=== PATIENT | male | born 1955 | race Hispanic/Latino ===

== ENCOUNTER 2016-10-20 12:09 | Inpatient (IN) | payer OTHER ==
[2016-10-20 13:25] LABS: Basophils % (Auto) 0.9 % (0.0-1.8); Eosinophils % (Auto) 1.1 % (0.0-4.3); Mean Corpuscular HGB Conc 29 % (32-34); Platelet Count 473 K/mm3 (140-440); Red Blood Count 4.88 M/mm3 (3.65-5.03); Red Cell Distribution Width 17.6 % (13.2-15.2); White Blood Count 14.1 K/mm3 (4.5-11.0)
[2016-10-20 13:39] LABS: Albumin/Globulin Ratio 1.1 %; BUN/Creatinine Ratio 18.66; Bilirubin,Total 0.4 mg/dL (0.1-1.2); Calcium 9.4 mg/dL (8.4-10.2); Potassium 4.2 mmol/L (3.6-5.0); Total Protein 7.6 g/dL (6.3-8.2)
[2016-10-20 13:42] LABS: Mean Corpuscular Hemoglobin 19 pg (28-32); Mean Corpuscular Volume 66 fl (84-94)
[2016-10-20 13:45] LABS: Hematocrit 31.8 % (35.5-45.6); Hemoglobin 9.3 gm/dl (11.8-15.2)
[2016-10-20 17:17] LABS: Bilirubin,Urine NEG (Negative); Blood,Urine NEG (Negative); Ketones,Urine TR mg/dL (Negative); Leukocyte Esterase,Urine TR (Negative); Mucus,Urine 1+ /HPF; Nitrite,Urine NEG (Negative); Protein,Urine <15 mg/dL mg/dL (Negative); Urobilinogen,Urine < 2.0 mg/dL (<2.0)
[2016-10-20] MEDS ORDERED: NACL ONE (18:30)
[2016-10-20] MEDS ORDERED: NACL 0.9% 1000 ML 1,000 ML IV ONE (18:31)
[2016-10-20 19:29] LABS: Total Iron Binding Capacity 403.2 mcg/dL (250-450)
--- NOTE | 2016-10-20 20:50 | Emergency Department Report ---
ED Abdominal Pain HPI - General Chief Complaint: Abdominal Pain Stated Complaint: ABDOMINAL PAIN Time Seen by Provider: 10/20/16 18:14 Source: patient, family Mode of arrival: Ambulatory Limitations: No Limitations - History of Present Illness Initial Comments: 61 yo male with a past hx of treated basal cell carcinoma and melanoma of the skin and surgical resection of both, and hypertension presents to the hospital complains of abdominal pain for greater than 1 month. Patient complains of intermittent sharp lower abdominal pain that is moderate in intensity. Pain is after eating something heavy like meat. Patient denies nausea, vomiting, diarrhea, melena, or fever. Patient had blood in his stool 4 weeks ago but has not noticed any sense. Patient does not have a primary care doctor. Denies a known history of anemia or iron deficiency. Patient has not been here before but was seen previously in the [facility]. He has lab work in the computer from September 2015 showing microcytic anemia with a hemoglobin of 10.8. Severity scale (0 -10): 8 - Related Data Allergies Allergy/AdvReac Type Severity Reaction Status Date / Time No Known Allergies Allergy Verified 10/20/16 18:36 ED Review of Systems ROS: Stated complaint: ABDOMINAL PAIN Other details as noted in HPI Comment: All other systems reviewed and negative Other: Constitutional: No fevers chills Eyes: No eye pain visual changes ENT: No ear pain or throat pain Neck: Denies pain Respiratory: Denies cough wheezing shortness of breath Cardiovascular: Denies chest pain, palpitations, syncope GI: as per hpi : Denies dysuria Musculoskeletal: Denies back pain Skin: Denies rash, lesions, erythema Neurologic: Denies headache, numbness, weakness Psychiatric: Denies suicidal ideation, hallucinations ED Past Medical Hx - Past Medical History Previous Medical History?: Yes Hx Hypertension: Yes Hx of Cancer: Yes (basal cell carcinoma, melenoma) - Surgical History Past Surgical History?: Yes Additional Surgical History: Cancer (ear and face) - Social History Smoking Status: Never Smoker Substance Use Type: None ED Physical Exam - General Limitations: No Limitations - Other Other exam information: General: No limitations, patient is alert in no acute distress Head exam: Atraumatic, normocephalic Eyes exam: Normal appearance, nonicteric sclera ENT: Moist mucous membrane, normal oropharynx Neck exam: Normal inspection, full range of motion, no meningismus nontender Respiratory exam: Clear to auscultation bilateral, no wheezes, rales, crackles Cardiovascular: Normal rate and rhythm, normal heart sounds Abdomen: Soft, nondistended, and nontender. Increased bowel sounds. Patient has guarding to the right upper and right lower quadrant which he says is due to being ticklish however this is only on the right side and not the left Extremity: Full range of motion normal inspection no deformity Back: Normal Inspection, full range of motion, no tenderness Neurologic: Alert, oriented x3, cranial nerves intact, no motor or sensory deficit Psychiatric: normal affect, normal mood Skin: Warm, dry, intact ED Course Vital Signs 10/20/16 10/20/16 10/20/16 12:44 18:08 22:00 Temperature 98.0 F 98.3 F Pulse Rate 57 L 66 69 Respiratory 22 16 Rate Blood Pressure 158/66 Blood Pressure 196/66 153/58 [Right] O2 Sat by Pulse 98 100 98 Oximetry - Reevaluation(s) Reevaluation #1: 10/20/16 21:01 PT treated with 1 L normal saline given mild dehydration and increased creatinine. Iron studies also reveals iron deficiency anemia Reevaluation #2: 10/20/16 22:22 SBP currently in the 130's without IV meds - Consultations Consultation #1: 10/20/16 21:54 case d/w DR. Caballero vascular. pt will likely need an endovascular procedure for this chronic dissection. Recommends cardiology consult for bp controll sbp goal 130, hr goal 70's. He will write a note Consultation #2: 10/20/16 22:06 case d/w DR. Jorgensen surgery, he will consult Consultation #3: 10/20/16 22:06 Case d/w Dr. Bolaños cardiology: they will consult ED Medical Decision Making - Lab Data Result diagrams: 10/20/16 13:06 10/20/16 13:06 Lab Results 10/20/16 10/20/16 10/20/16 Range/Units 13:06 13:06 13:06 WBC 14.1 H (4.5-11.0) K/mm3 RBC 4.88 (3.65-5.03) M/mm3 Hgb 9.3 L (11.8-15.2) gm/dl Hct 31.8 L (35.5-45.6) % MCV 66 L (84-94) fl MCH 19 L (28-32) pg MCHC 29 L (32-34) % RDW 17.6 H (13.2-15.2) % Plt Count 473 H (140-440) K/mm3 Lymph % (Auto) 16.6 (13.4-35.0) % Reynolds % (Auto) 9.8 H (0.0-7.3) % Eos % (Auto) 1.1 (0.0-4.3) % Baso % (Auto) 0.9 (0.0-1.8) % Lymph # 2.3 (1.2-5.4) K/mm3 Reynolds # 1.4 H (0.0-0.8) K/mm3 Eos # 0.2 (0.0-0.4) K/mm3 Baso # 0.1 (0.0-0.1) K/mm3 Seg Neutrophils % 71.6 H (40.0-70.0) % Seg Neutrophils # 10.1 H (1.8-7.7) K/mm3 Sodium 135 L (137-145) mmol/L Potassium 4.2 (3.6-5.0) mmol/L Chloride 98.0 (98-107) mmol/L Carbon Dioxide 24 (22-30) mmol/L Anion Gap 17 mmol/L BUN 28 H (9-20) mg/dL Creatinine 1.5 (0.8-1.5) mg/dL Estimated GFR 48 ml/min BUN/Creatinine Ratio 18.66 % Glucose 117 H (75-100) mg/dL Calcium 9.4 (8.4-10.2) mg/dL Iron 12 L (49-181) ug/dL TIBC 403.20 (250-450) mcg/dL % Saturation 2.98 % Transferrin 288 (180-329) mg/dl Total Bilirubin 0.4 (0.1-1.2) mg/dL AST 9 (5-40) units/L ALT 7 (7-56) units/L Alkaline Phosphatase 76 (35-129) units/L Total Protein 7.6 (6.3-8.2) g/dL Albumin 4.0 (3.9-5) g/dL Albumin/Globulin Ratio 1.1 % Lipase 19 (13-60) units/L Urine Color (Yellow) Urine Turbidity (Clear) Urine pH (5.0-7.0) Ur Specific [place] (1.003-1.030) Urine Protein (Negative) mg/dL Urine Glucose (UA) (Negative) mg/dL Urine Ketones (Negative) mg/dL Urine Blood (Negative) Urine Nitrite (Negative) Urine Bilirubin (Negative) Urine Urobilinogen (<2.0) mg/dL Ur Leukocyte Esterase (Negative) Urine WBC (Auto) (0.0-6.0) /HPF Urine RBC (Auto) (0.0-6.0) /HPF U Epithel Cells (Auto) (0-13.0) /HPF Urine Mucus /HPF 10/20/16 Range/Units 16:05 WBC (4.5-11.0) K/mm3 RBC (3.65-5.03) M/mm3 Hgb (11.8-15.2) gm/dl Hct (35.5-45.6) % MCV (84-94) fl MCH (28-32) pg MCHC (32-34) % RDW (13.2-15.2) % Plt Count (140-440) K/mm3 Lymph % (Auto) (13.4-35.0) % Reynolds % (Auto) (0.0-7.3) % Eos % (Auto) (0.0-4.3) % Baso % (Auto) (0.0-1.8) % Lymph # (1.2-5.4) K/mm3 Reynolds # (0.0-0.8) K/mm3 Eos # (0.0-0.4) K/mm3 Baso # (0.0-0.1) K/mm3 Seg Neutrophils % (40.0-70.0) % Seg Neutrophils # (1.8-7.7) K/mm3 Sodium (137-145) mmol/L Potassium (3.6-5.0) mmol/L Chloride (98-107) mmol/L Carbon Dioxide (22-30) mmol/L Anion Gap mmol/L BUN (9-20) mg/dL Creatinine (0.8-1.5) mg/dL Estimated GFR ml/min BUN/Creatinine Ratio % Glucose (75-100) mg/dL Calcium (8.4-10.2) mg/dL Iron (49-181) ug/dL TIBC (250-450) mcg/dL % Saturation % Transferrin (180-329) mg/dl Total Bilirubin (0.1-1.2) mg/dL AST (5-40) units/L ALT (7-56) units/L Alkaline Phosphatase (35-129) units/L Total Protein (6.3-8.2) g/dL Albumin (3.9-5) g/dL Albumin/Globulin Ratio % Lipase (13-60) units/L Urine Color Yellow (Yellow) Urine Turbidity Clear (Clear) Urine pH 5.0 (5.0-7.0) Ur Specific [place] 1.021 (1.003-1.030) Urine Protein <15 mg/dl (Negative) mg/dL Urine Glucose (UA) Neg (Negative) mg/dL Urine Ketones Tr (Negative) mg/dL Urine Blood Neg (Negative) Urine Nitrite Neg (Negative) Urine Bilirubin Neg (Negative) Urine Urobilinogen < 2.0 (<2.0) mg/dL Ur Leukocyte Esterase Tr (Negative) Urine WBC (Auto) 3.0 (0.0-6.0) /HPF Urine RBC (Auto) 3.0 (0.0-6.0) /HPF U Epithel Cells (Auto) 1.0 (0-13.0) /HPF Urine Mucus 1+ /HPF - Radiology Data Radiology results: report reviewed CT abdomen and pelvis IV contrast: Large malignant cavitary mass arising from the cecum and the 8 x 10 x 12 cm range. Recommend oral contrast. Mild small bowel ileus is suspected. Scattered mesenteric mass implantation. Metastatic mesenteric lymphadenopathy. Indeterminate pancreatic head mass. Extensive arterial vasculopathy. Infrarenal abdominal aortic aneurysm with chronic exertion with a left posterior left chronic pseudoaneurysm measuring in the 2 x 3 cm range. - Medical Decision Making IV labetalol drip order to maintain blood pressure. Vascular, surgery, and cardiology consults. Patient and family informed of possibility of cancer and diagnosis of dissection. Patient will be admitted for further management and workup. Ct abd/pelvis with Oral contrast ordered and pending at disposition - Differential Diagnosis intestinal angina, cancer, dyspepsia, diverticulitis, hepatitis, biliary co Critical Care Time: No Critical care attestation.: If time is entered above; I have spent that time in minutes in the direct care of this critically ill patient, excluding procedure time. ED Disposition Clinical Impression: Intestinal mass, Aortic dissection, abdominal, Pseudoaneurysm of aorta, Iron deficiency anemia Disposition: OP ADMITTED IP TO THIS HOSP Is pt being admited?: Yes Condition: Stable Time of Disposition: 22:25 (Dr Peres/hosp)
--- NOTE | 2016-10-20 21:29 | Cat Scan Report ---
FINAL REPORT PROCEDURE: CT ABDOMEN PELVIS W CON TECHNIQUE: Computerized axial tomography of the abdomen and pelvis was performed after the IV injection of iodinated nonionic contrast. HISTORY: abd pain after eating x 1 month COMPARISON: No prior studies are available for comparison. FINDINGS: Visualized lower thorax: No significant abnormality. Liver: Moderately enlarged liver with diffuse fatty infiltration. Spleen: Moderately enlarged spleen. Gallbladder and biliary system: Normal. Pancreas: Diffuse pancreatic atrophy with apparent round heterogeneous low to medium attenuated lesion in the pancreatic head measuring 1.4 x 1.6 centimeters coronal 59 with small 1 millimeter calcifications. This is indeterminate. Pancreatic malignancy or metastatic implant is the diagnosis of exclusion and followup and further workup is advised. No prior CT scan on file for correlation. Adrenals: 1.4 x 1.3 centimeter nonspecific left adrenal gland nodule near the crux and tiny incidental 1 x 2 millimeter lipoma at the base Kidneys: Low attenuated cystic changes of the kidneys with the largest suspected cyst in the right mid kidney measuring 7.0 x 5.0 centimeters. GI tract: No oral contrast. There is an apparent large cavitary mass in the right lower quadrant measuring 8 x 9 x 12 centimeters right lower quadrant appears to be related to cecum with surrounding mesenteric stranding. The normal colonic anatomy in that location is not discernible. Cohesive loops of diseased small bowel mimicking mass in the right lower quadrant is not favored. A normal caliber appendix appears to emanate from this masslike area in corroborating cecal locus of mass with appendix seen image 105. Followup oral contrast is advised. There appears to be scattered low to medium attenuated collections or mass deposits in the lateral collar gutters below the bladder mesentery right upper quadrant suggesting mesenteric implantation is. Enlarged lymph nodes in the mesentery 2 centimeter range consistent with metastatic spread. Followup and further workup is advised. Suggest followup oral contrast examination to further evaluate. Sigmoid diverticulosis. Scattered mildly prominent small bowel loops left upper quadrant in the 2.5 centimeter range may reflect slight ileus Lymph nodes and mesentery: Mildly prominent lymph nodes liza hepatis pre celiac area. Lobular low attenuated mass or collection suspected below the bladder measuring 3.4 x 4.4 centimeters. 1.3 x 1.2 centimeter low to medium attenuated collections lateral mid pelvic regions. Small mass or collection left inner pelvic area near the upper bladder on the left 1.7 x 1.3 centimeters. Suspect small focal mass or collection near anterior to the right renal vein measures 1.9 x 1.3 centimeters right upper quadrant coronal 73 right upper quad. Other masses or collections may be present and oral contrast examination may be helpful to further identify these areas of suspected mesenteric implant deposits. Vasculature: Atherosclerosis of the aorta and branch vessels with mild narrowing of the celiac axis. Moderate narrowing of the SMA axis. Severe narrowing of the proximal left renal artery. Mild narrowing of the proximal right renal artery. Infrarenal abdominal aortic aneurysm measures 3.8 x 3.4 centimeters with evidence of a focal dissection with apparent pseudoaneurysm formation left posterior lateral measuring 2 x 3 centimeters. Moderate stenosis of the common iliac arteries bilaterally Bladder: Normal. Reproductive organs: heterogeneous prostate gland 4.1 x 5.7 centimeters. Peritoneum: Trace fluid in the lateral collar gutters and pelvis Musculoskeletal structures: 1.2 x 0.8 centimeter lytic area with central sclerotic focus in the right iliac bone. Other tiny areas of patchy sclerotic foci in the iliac bones. Moderate diffuse degenerative changes of the lumbar spine. Defer to nuclear medicine bone scan evaluation to exclude underlying bony metastatic disease. Followup advised Other: None. IMPRESSION: Large malignant cavitary mass arising from the cecum in the 8 x 9 x 12 centimeter range. Recommend abundant oral contrast including proper delayed to reach the mid large bowel with additional IV examination for further clarification. No bowel obstruction but mild small bowel ileus suspected Scattered mesenteric mass implantation Metastatic mesenteric lymphadenopathy Indeterminate pancreatic head mass. Malignancy primary or metastatic disease is the diagnosis of exclusion Extensive arterial vasculopathy Infrarenal abdominal aortic aneurysm with chronic dissection with a left posterior lateral chronic pseudoaneurysm measuring in the 2 x 3 centimeter range. Defer to CTA study. Findings discussed with Dr. Mcguire 9:08 p.m. 10/20/2016
[2016-10-20] MEDS ORDERED: NORMODYNE 200 MG in D5W 160 ML IV ONE (21:51)
--- NOTE | 2016-10-20 22:01 | Event Note ---
Date: 10/20/16 61 year old male with multiple medical problems including a metastatic cecal cancer and an infrarenal aortic dissection with aneurysmal dilatation. Recommend blood pressure control to keep SBP less than 130, HR less than 70. Recommend cardiology consult. Will see patient in AM. No signs of impending rupture on CT scan. Will discuss possible endovascular repair with patient tomorrow.
[2016-10-20] MEDS ORDERED: ZOFRAN IV PRN (23:07)
[2016-10-20] MEDS ORDERED: MORPHINE IV PRN (23:07)
[2016-10-20] MEDS ORDERED: TYLENOL PO PRN (23:07)
--- NOTE | 2016-10-20 23:14 | History and Physical Report ---
History of Present Illness Date of examination: 10/20/16 History of present illness: 61-year-old man with a history of basal cell cancer, melanoma, hypertension comes emergency room with complaining of right lower quadrant pain since [place]. He describes pain as a pressure-like sensation, intermittent in nature lasting for 2-3 hours, no radiation, intensity 7/10, worse after eating, better with pain medication given in the emergency room. Also complaining of blood per rectum 3 weeks ago. He is lost 30 pounds unintentionally over the last 1 year. Patient denies chest pain, palpitation, shortness of breath, cough, dysuria, frequency, focal weakness, dysarthria, fever chills, polydipsia polyuria, hot or cold intolerance, easy bruisability, or rash or bleeding from mucosal membrane, rhinorrhea, epistaxis, earache, tinnitus, blurry vision, eye discharge , anxiety, depression. Other review of systems negative PAST SURGICAL HISTORY: Excision of melanoma and basal cell cancer SOCIAL HISTORY: Denies alcohol, tobacco, drugs FAMILY HISTORY: Hypertension Medications and Allergies Allergies Allergy/AdvReac Type Severity Reaction Status Date / Time No Known Allergies Allergy Verified 10/20/16 18:36 Home Medications Medication Instructions Recorded Confirmed Last Taken Type Benazepril/Hydrochlorothiazide 1 tab PO DAILY 10/20/16 10/20/16 10/20/16 History [Benazepril-Hctz 20-25 mg] Lisinopril [Zestril] 20 mg PO QDAY 10/20/16 10/20/16 10/20/16 History Active Meds: Active Medications Acetaminophen (Tylenol) 650 mg PO Q6H PRN PRN Reason: Pain Labetalol HCl 200 mg/ Dextrose 200 mls @ 120 mls/hr IV ONCE.ED ONE; 2 MG/MIN PRN Reason: Protocol Stop: 10/20/16 23:30 Last Admin: 10/20/16 22:42 Dose: 2 mg/min, 120 mls/hr Sodium Chloride (Nacl 0.45% 1000 Ml) 1,000 mls @ 50 mls/hr IV DIRECT DENAE Morphine Sulfate (Morphine) 2 mg IV Q4H PRN PRN Reason: Pain, Moderate (4-6) Ondansetron HCl (Zofran) 4 mg IV Q4H PRN PRN Reason: N/V unrelieved by Reglan Exam - Physical Exam Narrative exam: Gen. appearance: Patient lying in bed, no apparent distress HEENT: Normocephalic, atraumatic, pupils equally round and reactive to light, extraocular movement intact, and no sclericterus,. No JVD or thyromegaly or nodule,neck supple, no carotid bruit ,mucous membranes moist, no exudate or erythema Heart: S1, S2, regular rate and rhythm Lungs: Clear to auscultation bilaterally, breathing comfortable Abdomen: Positive bowel sounds, tender right lower quadrant, nondistended, no organomegaly Extremity: No edema, cyanosis, clubbing Skin: No rash, nodules, warm, dry Neuro: Oriented 3, cranial nerves II-12 intact, speech is fluent, motor and sensory intact - Constitutional Vitals: Temp Pulse Resp BP Pulse Ox 98.3 F 57 L 14 113/54 98 10/20/16 18:08 10/20/16 22:50 10/20/16 22:50 10/20/16 22:50 10/20/16 22:50 Results - Labs CBC & Chem 7: 10/24/16 05:11 10/24/16 05:11 Labs: Abnormal lab results 10/20/16 10/20/16 10/20/16 Range/Units 13:06 13:06 13:06 WBC 14.1 H (4.5-11.0) K/mm3 Hgb 9.3 L (11.8-15.2) gm/dl Hct 31.8 L (35.5-45.6) % MCV 66 L (84-94) fl MCH 19 L (28-32) pg MCHC 29 L (32-34) % RDW 17.6 H (13.2-15.2) % Plt Count 473 H (140-440) K/mm3 [place] % (Auto) 9.8 H (0.0-7.3) % [place] # 1.4 H (0.0-0.8) K/mm3 Seg Neutrophils % 71.6 H (40.0-70.0) % Seg Neutrophils # 10.1 H (1.8-7.7) K/mm3 Sodium 135 L (137-145) mmol/L BUN 28 H (9-20) mg/dL Glucose 117 H (75-100) mg/dL Iron 12 L (49-181) ug/dL - Imaging and Cardiology CT scan - abdomen: report reviewed CT scan - pelvis: report reviewed Assessment and Plan Metastatic colon cancer Aortic Dissection Anemia microcytic Hypertension History of basal cell cancer and melanoma Admits medicine Consults surgery, oncology Continue labetalol drip, vascular consult to see the patient Consult critical care, cardiology, start iv morphine Check iron studies, DVT prophylaxis initiate WITH SCD Prognosis guarded
--- NOTE | 2016-10-21 01:31 | Cat Scan Report ---
FINAL REPORT EXAM: CT ABDOMEN PELVIS WO CON HISTORY: cecal mass, possible metastatic cancer COMPARISON: CT abdomen pelvis October 20, 2016. TECHNIQUE: Contiguous axial images were obtained. Additional sagittal and coronal reformatted images were obtained. Enteric contrast administered. There is retained IV contrast from earlier CT of the abdomen and pelvis. FINDINGS: Prominent wall thickening of the cecum and proximal ascending colon. This is concerning for neoplastic process rather than focal inflammation. Wall thickness measures up to 2 centimeters. No extravasation of contrast or free air. No bowel obstruction. Cecal mass measures approximately 11 x 7 by 8 centimeters and has a cavitary appearance. There are small lymph nodes at the periphery of the thecal mass. 1 of the largest lymph nodes at its periphery measures 1.7 x 1.3 centimeters in axial dimension (series 201, image 68). Mild linear atelectasis at the lung bases. No calcified gallstones. Liver, spleen, pancreas are grossly unremarkable. Mild thickening of the adrenal glands. Bilateral renal cysts. Re-demonstration of infrarenal abdominal aortic aneurysm measuring 3.7 x 3.4 centimeters in axial dimension. Moderate to severe calcified plaque along the aorta. Urinary bladder is grossly unremarkable. Mild enlargement of prostate gland measuring 4.6 x 5.6 centimeters in axial dimension. Small amount of reactive fluid in the pelvis. Bony pelvis and lumbar spine are grossly intact. Small lucent lesion at the mid aspect of L4 level measuring 5 millimeters. This is indeterminate this could reflect a tiny bone cyst bony pelvis is grossly intact. IMPRESSION: Re-demonstration of large cavitary cecal mass concerning for neoplasm no free air or extravasation of contrast to suggest perforation. There are few small lymph nodes at its periphery which may be metastatic. No bowel obstruction. Stable infrarenal abdominal aortic aneurysm measuring 3.7 centimeters in diameter. Moderate severe calcified plaque along the aorta. Pancreatic head mass described on earlier CT is not well visualized on this followup exam.
[2016-10-21] MEDS: NACL 0.45% 1000 ML 1,000 ML IV SCH ×2 (02:30→22:00)
[2016-10-21 04:56] LABS: Eosinophils % (Auto) 0.9 % (0.0-4.3); Hemoglobin 7.5 gm/dl (11.8-15.2); Mean Corpuscular HGB Conc 30 % (32-34); Platelet Count 311 K/mm3 (140-440); Red Blood Count 3.79 M/mm3 (3.65-5.03); Red Cell Distribution Width 17.2 % (13.2-15.2); White Blood Count 7.8 K/mm3 (4.5-11.0)
[2016-10-21 05:09] LABS: Anion Gap 15 mmol/L; Blood Urea Nitrogen 23 mg/dL (9-20); Calcium 8.3 mg/dL (8.4-10.2); Carbon Dioxide 24 mmol/L (22-30); Chloride 103.5 mmol/L (98-107); Glucose 128 mg/dL (75-100); Potassium 3.8 mmol/L (3.6-5.0); Sodium 139 mmol/L (137-145)
[2016-10-21 06:15] LABS: Mean Corpuscular Hemoglobin 20 pg (28-32); Mean Corpuscular Volume 65 fl (84-94)
[2016-10-21 06:16] LABS: Hematocrit 26.6 % (35.5-45.6)
[2016-10-21] MEDS ORDERED: NACL 0.9% 500 ML 500 ML IV ONE (08:57)
--- NOTE | 2016-10-21 09:03 | Hem/Onc Consultation ---
History of Present Illness - Reason for Consult Consult date: 10/21/16 - History of Present Illness Patient is a who was admitted to the hospital with right lower quadrant pain. On his CT scan he was found to have a large right lower quadrant mass about 8 x 9 x 12 cm. There was also evidence of lymphadenopathy possible mesenteric lesions on his CAT scan. He also was found to have a mass in the head of the pancreas questionable. Patient was found to have aneurysm and was admitted to the hospital for workup. Vascular and surgery evaluation is pending at this time. Because of the colon mass and pancreatic mass oncology consult was called. Patient has history of weight loss in the last year and a half. He says he's lost 40 pounds but he thinks the diabetic that he was placed on is making him lose weight. He has noticed some blood in his stool. He also noticed abdominal pain mostly on eating. Denies any constipation. Denies any nausea or vomiting. Denies any family history of colon cancer. He's never had a colonoscopy. Past History Past Medical History: other (basal cell carcinoma and melanoma removed at [facility] about a year and a half ago) Social history: no significant social history Medications and Allergies Allergies Allergy/AdvReac Type Severity Reaction Status Date / Time No Known Allergies Allergy Verified 10/20/16 18:36 Home Medications Medication Instructions Recorded Confirmed Last Taken Type Benazepril/Hydrochlorothiazide 1 tab PO DAILY 10/20/16 10/20/16 10/20/16 History [Benazepril-Hctz 20-25 mg] Lisinopril [Zestril] 20 mg PO QDAY 10/20/16 10/20/16 10/20/16 History Active Meds: Active Medications Acetaminophen (Tylenol) 650 mg PO Q6H PRN PRN Reason: Pain Sodium Chloride (Nacl 0.45% 1000 Ml) 1,000 mls @ 50 mls/hr IV DIRECT DENAE Last Admin: 10/21/16 02:30 Dose: 50 mls/hr Sodium Chloride (Nacl 0.9% 500 Ml) 500 mls @ 0 mls/hr IV ONCE ONE PRN Reason: As Directed Stop: 10/21/16 08:58 Morphine Sulfate (Morphine) 2 mg IV Q4H PRN PRN Reason: Pain, Moderate (4-6) Ondansetron HCl (Zofran) 4 mg IV Q4H PRN PRN Reason: N/V unrelieved by Reglan Exam - Exam Narrative Exam: Left eye twitch - Constitutional Vitals: Last Vital Signs Temp 98.2 F 10/21/16 08:00 Pulse 56 L 10/21/16 07:00 Resp 19 10/21/16 07:00 BP 142/55 10/21/16 07:00 Pulse Ox 96 10/21/16 07:00 General appearance: no acute distress Performance status: 2- selfcare, ambulatory - Neck Neck: supple - Respiratory Respiratory effort: Positive: normal - Cardiovascular Rhythm: regular Extremities: No edema - Gastrointestinal General gastrointestinal: Present: soft Results - Labs lab Results: Laboratory Results - last 24 hr 10/21/16 10/21/16 04:17 04:17 WBC 7.8 RBC 3.79 Hgb 7.5 L Hct 26.6 L MCV 65 L MCH 20 L MCHC 30 L RDW 17.2 H Plt Count 311 Lymph % (Auto) 13.8 Martin % (Auto) 10.3 H Eos % (Auto) 0.9 Baso % (Auto) 1.0 Lymph # 1.1 L Martin # 0.8 Eos # 0.1 Baso # 0.1 Seg Neutrophils % 74.0 H Seg Neutrophils # 5.7 Sodium 139 Potassium 3.8 Chloride 103.5 Carbon Dioxide 24 Anion Gap 15 BUN 23 H Creatinine 1.1 Estimated GFR > 60 BUN/Creatinine Ratio 20.90 Glucose 128 H Calcium 8.3 L Assessment and Plan Patient has a large right colon mass in the area of the cecum. Would recommend a colonoscopy once stable. Will order CEA and CA 199. Next Patient has significant anemia. We will do anemia workup and transfuse.
--- NOTE | 2016-10-21 09:06 | Admit Criteria Form ---
Admission Criteria Documentation: ABDOMINAL PAIN Clinical Indications for Admission to Inpatient Care (Place 'X' for any and all applicable criteria): Admission is indicated for ANY ONE of the following(1)(2)(3)(4)(5): [X ]I. Inpatient admission required rather than observation care (Also use Abdominal Pain: Observation Care, as appropriate) because of ANY ONE of the following: [ ]a) Severe pain requiring acute inpatient management [X ]b) Identification of etiology/finding that requires inpatient care (eg, aortic dissection, free air) [ ]c) Absent bowel sounds with complete ileus(6) [ ]d) Suspected toxic megacolon [ ]e) Severe electrolyte abnormalities requiring inpatient care [ ]f) High fever or infection requiring inpatient admission as indicated by ANY ONE of following(7)(8): [ ] i) Appropriate outpatient or observational care antimicrobial treatment unavailable, not effective, or not feasible [ ] ii) Documented bacteremia [ ] iii) Temperature > 104.9 degrees F (oral) [ ] iv) T >103.1 F (oral) or < 96.8 F(rectal) that does not respond to all emergency treatment measures [ ]g) Signs of intestinal obstruction [B] [ ]h) Hemodynamic instability [ ]i) IV fluid to replace significant ongoing losses (greater than 3 L/m2 per day) (12)(13) [ ]j) Percutaneous or open drainage (eg, abscess, biliary tract ) procedures [ ]k) Parenteral nutrition regimen that must be implemented on inpatient basis [X]l) Other condition,treatment or monitoring requiring inpatient admission. [ ]II. Peritoneal signs present [ ]III. Surgery needed that cannot be performed on an ambulatory basis. [ ]IV. Evaluation requires patient to not eat or drink for extended period ( eg, more than 24 hours). [ ]V. Contraindications and/or Inappropriate clinical situations for Observational Care in patients with abdominal pain, when ANY ONE of the following is required: [ ]a) Thorough evaluation is required to prevent catastrophic events due to delays in diagnosing (e.g.Mesenteric ischemia) 1,3 [ ]b) Patient with severe pathology or with chronic symptoms unlikely to improve in the ED stay (3) [ ]. General contraindications and/or Inappropriate clinical situations for Observational Care in patients with abdominal pain, when ANY ONE of the following is required: [ ]a) Prediction of prolongation of LOS based on ANY ONE of the following may be considered as a contraindication for observational care 2, 3, 4, 5, 6, 7, 8, 9, 10, 11 [ ]i) Age > 65 yrs. [ ]ii) Patient arriving by ambulance [ ]iii) Patient with high acuity [ ]iv) Patient requiring vital sign monitoring [ ]v) Patient on IV medication [ ]b) Systolic blood pressures 180mmHg 3,12 [ ]c) Patient with altered mental status including delirium and other alteration of consciousness, (3) [ ]d) Patient whose discharge disposition will be to a penitentiary home or rehabilitation home should not be managed in Emergency Department Observation Unit. CMS rule requires 3 days hospital stay before such placement.3,13 [ ]e) Patient with failure to thrive due to broad array of etiologies 3,16,17 [ ]f) Inability to ambulate 3,14 Extended stay beyond goal length of stay may be needed for(2)(3): [ ]a) Persistent abdominal pain with suspected intra-abdominal process [ ]b) Diagnosed condition requiring continued stay (e.g., pancreatitis, complicated diverticulitis) [ ]c) Surgery (e.g., colectomy) The original [facility] content created by [employer] has been revised. The portions of the content which have been revised are identified through the use of italic text or in bold, and [email or web address] has neither reviewed nor approved the modified material.All other unmodified content is copyright [facility] [employer]. Please see references footnoted in the original [facility] edition 2016 Admission Criteria Met: Yes
[2016-10-21] MEDS ORDERED: LOVENOX SUB-Q SCH (10:00)
[2016-10-21 10:47] LABS: Reticulocyte % 1.24 % (0.78-2.58)
--- NOTE | 2016-10-21 11:24 | Consultation ---
History of Present Illness Consult date: 10/21/16 Requesting physician: SATISH MEREDITH History of present illness: PULMONARY/CCM CONSULT NOTE (Full dictation # [id number]) Please see dictated notes for full details Past History Past Medical History: other (basal cell carcinoma and melanoma removed at [facility] about a year and a half ago) Social history: no significant social history Medications and Allergies Allergies Allergy/AdvReac Type Severity Reaction Status Date / Time No Known Allergies Allergy Verified 10/20/16 18:36 Home Medications Medication Instructions Recorded Confirmed Last Taken Type Benazepril/Hydrochlorothiazide 1 tab PO DAILY 10/20/16 10/20/16 10/20/16 History [Benazepril-Hctz 20-25 mg] Lisinopril [Zestril] 20 mg PO QDAY 10/20/16 10/20/16 10/20/16 History Active Meds: Active Medications Acetaminophen (Tylenol) 650 mg PO Q6H PRN PRN Reason: Pain Sodium Chloride (Nacl 0.45% 1000 Ml) 1,000 mls @ 50 mls/hr IV DIRECT DENAE Last Admin: 10/21/16 02:30 Dose: 50 mls/hr Morphine Sulfate (Morphine) 2 mg IV Q4H PRN PRN Reason: Pain, Moderate (4-6) Ondansetron HCl (Zofran) 4 mg IV Q4H PRN PRN Reason: N/V unrelieved by Reglan Physical Examination Vital signs: Vital Signs Temp Pulse Resp BP Pulse Ox 98.0 F 57 L 22 158/66 98 10/20/16 12:44 10/20/16 12:44 10/20/16 12:44 10/20/16 12:44 10/20/16 12:44 Results - Laboratory Findings CBC and BMP: 10/21/16 04:17 10/21/16 04:17 Abnormal lab findings: Abnormal Labs 10/21/16 10/21/16 10/21/16 04:17 04:17 10:15 Hgb 7.5 L Hct 26.6 L MCV 65 L MCH 20 L MCHC 30 L RDW 17.2 H [place] % (Auto) 10.3 H Lymph # 1.1 L Seg Neutrophils % 74.0 H BUN 23 H Glucose 128 H Calcium 8.3 L Crossmatch See Detail
[2016-10-21] MEDS: APRESOLINE IV PRN (13:49)
--- NOTE | 2016-10-21 13:50 | Progress Note ---
Assessment and Plan Assessment and plan: 1. Large right colon mass in the area of the cecum.? Metastatic colon CA. GI consultation pending. Patient will need colonoscopy for further evaluation. 2. Anemia. Etiology is unknown but most likely acute blood loss anemia. Patient status post transfusion. We will check iron studies, ferritin, reticulocyte count, LDH, B12 and folate. Check Hemoccult of stools. 3. Infrarenal abdominal aortic aneurysm. Vascular surgery consultation pending. 4. Hypertension. Resume antihypertensives medications. 5. History of basal cell cancer and melanoma. 6. DVT prophylaxis. SCDs only given the anemia. History Interval history: 61-year-old man with a history of basal cell cancer, melanoma, hypertension comes emergency room with complaining of right lower quadrant pain since Melodie. On his CT scan, he was found to have a large right lower quadrant mass about 8 x 9 x 12 cm and evidence of lymphadenopathy and mesenteric lesions. He also was found to have a questionable mass in the head of the pancreas and infrarenal abdominal aortic aneurysm. Patient was admitted for further evaluation. No new issues overnight. Hospitalist Physical - Constitutional Vitals: Temp Pulse Resp BP Pulse Ox 98.2 F 59 L 13 162/63 96 10/21/16 12:00 10/21/16 10:00 10/21/16 10:00 10/21/16 10:00 10/21/16 09:00 General appearance: Present: no acute distress, well-nourished - EENT Eyes: Present: PERRL, EOM intact ENT: hearing intact, clear oral mucosa, dentition normal - Neck Neck: Present: supple, normal ROM - Respiratory Respiratory effort: normal Respiratory: bilateral: CTA - Cardiovascular Rhythm: regular Heart Sounds: Present: S1 & S2. Absent: gallop, rub - Extremities Extremities: no ischemia, No edema, Full ROM - Abdominal General gastrointestinal: soft, non-tender, non-distended, normal bowel sounds - Integumentary Integumentary: Present: clear, warm, dry - Neurologic Neurologic: CNII-XII intact, moves all extremities Results - Labs CBC & Chem 7: 10/21/16 04:17 10/21/16 04:17 Labs: Laboratory Last Values WBC 7.8 K/mm3 (4.5-11.0) 10/21/16 04:17 RBC 3.79 M/mm3 (3.65-5.03) 10/21/16 04:17 Hgb 7.5 gm/dl (11.8-15.2) L 10/21/16 04:17 Hct 26.6 % (35.5-45.6) L 10/21/16 04:17 MCV 65 fl (84-94) L 10/21/16 04:17 MCH 20 pg (28-32) L 10/21/16 04:17 MCHC 30 % (32-34) L 10/21/16 04:17 RDW 17.2 % (13.2-15.2) H 10/21/16 04:17 Plt Count 311 K/mm3 (140-440) 10/21/16 04:17 Lymph % (Auto) 13.8 % (13.4-35.0) 10/21/16 04:17 [place] % (Auto) 10.3 % (0.0-7.3) H 10/21/16 04:17 Eos % (Auto) 0.9 % (0.0-4.3) 10/21/16 04:17 Baso % (Auto) 1.0 % (0.0-1.8) 10/21/16 04:17 Lymph # 1.1 K/mm3 (1.2-5.4) L 10/21/16 04:17 [place] # 0.8 K/mm3 (0.0-0.8) 10/21/16 04:17 Eos # 0.1 K/mm3 (0.0-0.4) 10/21/16 04:17 Baso # 0.1 K/mm3 (0.0-0.1) 10/21/16 04:17 Seg Neutrophils % 74.0 % (40.0-70.0) H 10/21/16 04:17 Seg Neutrophils # 5.7 K/mm3 (1.8-7.7) 10/21/16 04:17 Percent Retic 1.24 % (0.78-2.58) 10/21/16 10:15 Sodium 139 mmol/L (137-145) 10/21/16 04:17 Potassium 3.8 mmol/L (3.6-5.0) 10/21/16 04:17 Chloride 103.5 mmol/L (98-107) 10/21/16 04:17 Carbon Dioxide 24 mmol/L (22-30) 10/21/16 04:17 Anion Gap 15 mmol/L 10/21/16 04:17 BUN 23 mg/dL (9-20) H 10/21/16 04:17 Creatinine 1.1 mg/dL (0.8-1.5) 10/21/16 04:17 Estimated GFR > 60 ml/min 10/21/16 04:17 BUN/Creatinine Ratio 20.90 % 10/21/16 04:17 Glucose 128 mg/dL (75-100) H 10/21/16 04:17 Calcium 8.3 mg/dL (8.4-10.2) L 10/21/16 04:17 Iron 12 ug/dL (49-181) L 10/20/16 13:06 TIBC 403.20 mcg/dL (250-450) 10/20/16 13:06 % Saturation 2.98 % 10/20/16 13:06 Transferrin 288 mg/dl (180-329) 10/20/16 13:06 Total Bilirubin 0.4 mg/dL (0.1-1.2) 10/20/16 13:06 AST 9 units/L (5-40) 10/20/16 13:06 ALT 7 units/L (7-56) 10/20/16 13:06 Alkaline Phosphatase 76 units/L (35-129) 10/20/16 13:06 Total Protein 7.6 g/dL (6.3-8.2) 10/20/16 13:06 Albumin 4.0 g/dL (3.9-5) 10/20/16 13:06 Albumin/Globulin Ratio 1.1 % 10/20/16 13:06 Lipase 19 units/L (13-60) 10/20/16 13:06 Vitamin B12 429.8 pg/mL (211-911) 10/21/16 10:15 Folate 11.83 ng/mL (7.3-26.0) 10/21/16 10:15 Urine Color Yellow (Yellow) 10/20/16 16:05 Urine Turbidity Clear (Clear) 10/20/16 16:05 Urine pH 5.0 (5.0-7.0) 10/20/16 16:05 Ur Specific [place] 1.021 (1.003-1.030) 10/20/16 16:05 Urine Protein <15 mg/dl mg/dL (Negative) 10/20/16 16:05 Urine Glucose (UA) Neg mg/dL (Negative) 10/20/16 16:05 Urine Ketones Tr mg/dL (Negative) 10/20/16 16:05 Urine Blood Neg (Negative) 10/20/16 16:05 Urine Nitrite Neg (Negative) 10/20/16 16:05 Urine Bilirubin Neg (Negative) 10/20/16 16:05 Urine Urobilinogen < 2.0 mg/dL (<2.0) 10/20/16 16:05 Ur Leukocyte Esterase Tr (Negative) 10/20/16 16:05 Urine WBC (Auto) 3.0 /HPF (0.0-6.0) 10/20/16 16:05 Urine RBC (Auto) 3.0 /HPF (0.0-6.0) 10/20/16 16:05 U Epithel Cells (Auto) 1.0 /HPF (0-13.0) 10/20/16 16:05 Urine Mucus 1+ /HPF 10/20/16 16:05 Blood Type O POSITIVE 10/21/16 10:15 Antibody Screen Negative 10/21/16 10:15 Crossmatch See Detail 10/21/16 10:15
[2016-10-21] MEDS: PEPCID PO SCH (13:51)
--- NOTE | 2016-10-21 13:52 | Gastroenterology Consultation ---
History of Present Illness - Reason for Consult Consult date: 10/21/16 Colon Mass Requesting physician: JOIE VARGAS - History of Present Illness The patient is a 61 yo male admitted with an abnormal abdominal CT (colon mass, likely peritoneal disease, AAA with chronic dissection). He has had some mild crampy abdominal pain for the last 2-4 months. There has been a 20-30 pound weight loss, but no severe change in the stools (CT notes no bowel obstruction) . He has never had a colonoscopy or upper endoscopy. There is no significant bleeding in the stools. Past History Past Medical History: hypertension, other (basal cell carcinoma and melanoma removed at [facility] about a year and a half ago, AAA, HTN) Past Surgical History: No surgical history Social history: no significant social history Family history: no significant family history Medications and Allergies Allergies Allergy/AdvReac Type Severity Reaction Status Date / Time No Known Allergies Allergy Verified 10/20/16 18:36 Home Medications Medication Instructions Recorded Confirmed Last Taken Type Benazepril/Hydrochlorothiazide 1 tab PO DAILY 10/20/16 10/20/16 10/20/16 History [Benazepril-Hctz 20-25 mg] Lisinopril [Zestril] 20 mg PO QDAY 10/20/16 10/20/16 10/20/16 History Active Meds: Active Medications Acetaminophen (Tylenol) 650 mg PO Q6H PRN PRN Reason: Pain Famotidine (Pepcid) 20 mg PO QDAY DENAE Hydralazine HCl (Apresoline) 10 mg IV Q6H PRN PRN Reason: SBP > 160 Sodium Chloride (Nacl 0.45% 1000 Ml) 1,000 mls @ 50 mls/hr IV DIRECT DENAE Last Admin: 10/21/16 02:30 Dose: 50 mls/hr Morphine Sulfate (Morphine) 2 mg IV Q4H PRN PRN Reason: Pain, Moderate (4-6) Ondansetron HCl (Zofran) 4 mg IV Q4H PRN PRN Reason: N/V unrelieved by Reglan Review of Systems - Review of Systems All systems: negative (as noted in the HPI.) Exam - Constitutional Vital Signs: Temp Pulse Resp BP Pulse Ox 98.2 F 59 L 13 162/63 96 10/21/16 12:00 10/21/16 10:00 10/21/16 10:00 10/21/16 10:00 10/21/16 09:00 General appearance: no acute distress - EENT Eyes: PERRL, EOM intact ENT: hearing intact, clear oral mucosa - Neck Neck: supple, normal ROM - Respiratory Respiratory effort: normal Respiratory: bilateral: CTA - Cardiovascular Rhythm: regular Heart Sounds: Present: S1 & S2 - Gastrointestinal General gastrointestinal: Present: soft, tender (Minimal RLQ tenderness), non- distended - Integumentary Integumentary: Present: clear, warm, dry - Neurologic Neurological: alert and oriented x3 - Labs CBC & Chem 7: 10/21/16 04:17 10/21/16 04:17 Lab Results: Laboratory Results - last 24 hr 10/21/16 10/21/16 10/21/16 04:17 04:17 10:15 WBC 7.8 RBC 3.79 Hgb 7.5 L Hct 26.6 L MCV 65 L MCH 20 L MCHC 30 L RDW 17.2 H Plt Count 311 Lymph % (Auto) 13.8 [place] % (Auto) 10.3 H Eos % (Auto) 0.9 Baso % (Auto) 1.0 Lymph # 1.1 L [place] # 0.8 Eos # 0.1 Baso # 0.1 Seg Neutrophils % 74.0 H Seg Neutrophils # 5.7 Percent Retic Sodium 139 Potassium 3.8 Chloride 103.5 Carbon Dioxide 24 Anion Gap 15 BUN 23 H Creatinine 1.1 Estimated GFR > 60 BUN/Creatinine Ratio 20.90 Glucose 128 H Calcium 8.3 L Vitamin B12 Folate TSH Blood Type O POSITIVE Antibody Screen Negative Crossmatch See Detail 10/21/16 10/21/16 10/21/16 10:15 10:15 10:15 WBC RBC Hgb Hct MCV MCH MCHC RDW Plt Count Lymph % (Auto) [place] % (Auto) Eos % (Auto) Baso % (Auto) Lymph # [place] # Eos # Baso # Seg Neutrophils % Seg Neutrophils # Percent Retic 1.24 Sodium Potassium Chloride Carbon Dioxide Anion Gap BUN Creatinine Estimated GFR BUN/Creatinine Ratio Glucose Calcium Vitamin B12 429.8 Folate 11.83 TSH Blood Type Antibody Screen Crossmatch 10/21/16 10:15 WBC RBC Hgb Hct MCV MCH MCHC RDW Plt Count Lymph % (Auto) [place] % (Auto) Eos % (Auto) Baso % (Auto) Lymph # [place] # Eos # Baso # Seg Neutrophils % Seg Neutrophils # Percent Retic Sodium Potassium Chloride Carbon Dioxide Anion Gap BUN Creatinine Estimated GFR BUN/Creatinine Ratio Glucose Calcium Vitamin B12 Folate TSH 1.870 Blood Type Antibody Screen Crossmatch Assessment and Plan - Patient Problems (1) Abnormal CT of the abdomen Current Visit: Yes Status: Acute Plan to address problem: - 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 - Will start clear liquid diet, and prep tomorrow; colonoscopy Monday. - Vascular and General Surgery consults appreciated.
--- NOTE | 2016-10-21 13:58 | Consultation ---
History of Present Illness Consult date: 10/21/16 Reason for consult: other (cecal mass.) Chief complaint: 61 years old male with continued emergency room complaining of some abdominal pain. He cannot a CAT scan of the abdomen which showed a mobile the things dissecting aneurysm of the infrarenal aorta and a right cecal mass. Patient was seen by Dr. Chaparro Caballero from interventional radiology because of the aneurysm and he reports that this was not expanding O in his view the cecal mass should take priority. Past History Past Medical History: hypertension, other (basal cell carcinoma and melanoma removed at [facility] about a year and a half ago) Social history: no significant social history Medications and Allergies Allergies Allergy/AdvReac Type Severity Reaction Status Date / Time No Known Allergies Allergy Verified 10/20/16 18:36 Home Medications Medication Instructions Recorded Confirmed Last Taken Type Benazepril/Hydrochlorothiazide 1 tab PO DAILY 10/20/16 10/20/16 10/20/16 History [Benazepril-Hctz 20-25 mg] Lisinopril [Zestril] 20 mg PO QDAY 10/20/16 10/20/16 10/20/16 History Active Meds: Active Medications Acetaminophen (Tylenol) 650 mg PO Q6H PRN PRN Reason: Pain Famotidine (Pepcid) 20 mg PO QDAY [facility] Last Admin: 10/21/16 13:51 Dose: 20 mg Hydralazine HCl (Apresoline) 10 mg IV Q6H PRN PRN Reason: SBP > 160 Last Admin: 10/21/16 13:49 Dose: 10 mg Sodium Chloride (Nacl 0.45% 1000 Ml) 1,000 mls @ 50 mls/hr IV DIRECT [facility] Last Admin: 10/21/16 02:30 Dose: 50 mls/hr Morphine Sulfate (Morphine) 2 mg IV Q4H PRN PRN Reason: Pain, Moderate (4-6) Ondansetron HCl (Zofran) 4 mg IV Q4H PRN PRN Reason: N/V unrelieved by Reglan Review of Systems All systems: negative (present complaint) Exam Vital Signs Temp Pulse Resp BP Pulse Ox 98.0 F 57 L 22 158/66 98 10/20/16 12:44 10/20/16 12:44 10/20/16 12:44 10/20/16 12:44 10/20/16 12:44 - General physical appearance Positive: well developed, well nourished, no distress - Eyes Positive: other (used to have some right facial weakness) - ENT Positive: normal pinna, normal nares, normal mucosa, no hearing loss, no congestion - Neck Positive: no masses, no bruits, trachea midline, no venous distension - Respiratory Positive: normal expansion, normal respiratory effort, clear to auscultation - Cardiovascular Rhythm: regular Heart Sounds: Present: systolic murmur - Extremities Extremities: no ischemia, pulses symmetrical, No edema - Breasts Breasts: normal - Abdomen Abdomen: Present: soft, bowel sounds normal. Absent: tender - Genitourinary Male Genitourinary: normal - Integumentary no rash, no growths, no abnormal pigmentation - Neurologic Neurologic: alert and oriented to time, place and person, motor strength and sensation are grossly intact - Musculoskeletal normal gait, normal posture - Psychiatric Psychiatric: appropriate mood/affect, intact judgment & insight Results - Labs 10/21/16 04:17 10/21/16 04:17 Abnormal lab results 10/21/16 10/21/16 10/21/16 Range/Units 04:17 04:17 10:15 Hgb 7.5 L (11.8-15.2) gm/dl Hct 26.6 L (35.5-45.6) % MCV 65 L (84-94) fl MCH 20 L (28-32) pg MCHC 30 L (32-34) % RDW 17.2 H (13.2-15.2) % [place] % (Auto) 10.3 H (0.0-7.3) % Lymph # 1.1 L (1.2-5.4) K/mm3 Seg Neutrophils % 74.0 H (40.0-70.0) % BUN 23 H (9-20) mg/dL Glucose 128 H (75-100) mg/dL Calcium 8.3 L (8.4-10.2) mg/dL Crossmatch See Detail Diabetes panel 10/21/16 Range/Units 04:17 Sodium 139 (137-145) mmol/L Potassium 3.8 (3.6-5.0) mmol/L Chloride 103.5 (98-107) mmol/L Carbon Dioxide 24 (22-30) mmol/L BUN 23 H (9-20) mg/dL Creatinine 1.1 (0.8-1.5) mg/dL Glucose 128 H (75-100) mg/dL Calcium 8.3 L (8.4-10.2) mg/dL Thyroid panel 10/21/16 Range/Units 10:15 TSH 1.870 (0.270-4.200) mlU/mL Calcium panel 10/21/16 Range/Units 04:17 Calcium 8.3 L (8.4-10.2) mg/dL Pituitary panel 10/21/16 10/21/16 Range/Units 04:17 10:15 Sodium 139 (137-145) mmol/L Potassium 3.8 (3.6-5.0) mmol/L Chloride 103.5 (98-107) mmol/L Carbon Dioxide 24 (22-30) mmol/L BUN 23 H (9-20) mg/dL Creatinine 1.1 (0.8-1.5) mg/dL Glucose 128 H (75-100) mg/dL Calcium 8.3 L (8.4-10.2) mg/dL TSH 1.870 (0.270-4.200) mlU/mL Adrenal panel 10/21/16 Range/Units 04:17 Sodium 139 (137-145) mmol/L Potassium 3.8 (3.6-5.0) mmol/L Chloride 103.5 (98-107) mmol/L Carbon Dioxide 24 (22-30) mmol/L BUN 23 H (9-20) mg/dL Creatinine 1.1 (0.8-1.5) mg/dL Glucose 128 H (75-100) mg/dL Calcium 8.3 L (8.4-10.2) mg/dL - Imaging CT scan - abdomen: report reviewed, image reviewed (Reviewed with Dr. Melara, seems to have a right cecal mass with mesenteric adenopathy in the pericecal area.) Assessment and Plan Impression: 1. 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 2. Infrarenal dissecting ANEURYSM. 3. anemia secondary to 1. Recommendations: Will need right colectomy after colonoscopy to rule out synchronous lesion in the colon. We'll schedule for Monday but needs medical clearance. Being transfused with packed red blood cells today.
--- NOTE | 2016-10-21 14:07 | Consultation ---
History of Present Illness - Reason for Consult Consult date: 10/21/16 Aortic Dissection with Aneurysmal Dilatation Past History Past Medical History: other (basal cell carcinoma and melanoma removed at [facility] about a year and a half ago) Social history: no significant social history Medications and Allergies Allergies Allergy/AdvReac Type Severity Reaction Status Date / Time No Known Allergies Allergy Verified 10/20/16 18:36 Home Medications Medication Instructions Recorded Confirmed Last Taken Type Benazepril/Hydrochlorothiazide 1 tab PO DAILY 10/20/16 10/20/16 10/20/16 History [Benazepril-Hctz 20-25 mg] Lisinopril [Zestril] 20 mg PO QDAY 10/20/16 10/20/16 10/20/16 History Active Meds: Active Medications Acetaminophen (Tylenol) 650 mg PO Q6H PRN PRN Reason: Pain Famotidine (Pepcid) 20 mg PO QDAY DENAE Hydralazine HCl (Apresoline) 10 mg IV Q6H PRN PRN Reason: SBP > 160 Sodium Chloride (Nacl 0.45% 1000 Ml) 1,000 mls @ 50 mls/hr IV DIRECT DENAE Last Admin: 10/21/16 02:30 Dose: 50 mls/hr Morphine Sulfate (Morphine) 2 mg IV Q4H PRN PRN Reason: Pain, Moderate (4-6) Ondansetron HCl (Zofran) 4 mg IV Q4H PRN PRN Reason: N/V unrelieved by Reglan Exam - Constitutional Vitals: Temp Pulse Resp BP Pulse Ox 98.2 F 59 L 13 162/63 96 10/21/16 12:00 10/21/16 10:00 10/21/16 10:00 10/21/16 10:00 10/21/16 09:00 Results - Labs CBC & Chem 7: 10/21/16 04:17 10/21/16 04:17 Labs: Abnormal lab results 10/21/16 10/21/16 10/21/16 Range/Units 04:17 04:17 10:15 Hgb 7.5 L (11.8-15.2) gm/dl Hct 26.6 L (35.5-45.6) % MCV 65 L (84-94) fl MCH 20 L (28-32) pg MCHC 30 L (32-34) % RDW 17.2 H (13.2-15.2) % [place] % (Auto) 10.3 H (0.0-7.3) % Lymph # 1.1 L (1.2-5.4) K/mm3 Seg Neutrophils % 74.0 H (40.0-70.0) % BUN 23 H (9-20) mg/dL Glucose 128 H (75-100) mg/dL Calcium 8.3 L (8.4-10.2) mg/dL Crossmatch See Detail
--- NOTE | 2016-10-21 14:21 | Consultation ---
History of Present Illness - Reason for Consult Consult date: 10/21/16 Aortic Dissection with Aneurysmal Dilatation - History of Present Illness This patient is a 61-year-old male that was admitted via the emergency room on 10/20/2016 due to abdominal pain associated with eating. The pain apparently started in June of 2016. He had a CT scan of the abdomen and pelvis which revealed a large cavitary mass arising from the cecum (8 x 9 x 12 cm). There were also several small lymph nodes in the periphery which were felt to potentially be metastatic. The Patient was also noted to have a infrarenal aortic dissection with aneurysmal dilatation (3.8 x 3.4 cm) and a left posterior lateral pseudoaneurysm. A vascular surgery consult has been requested to further evaluate. He states he was unaware of either the tumor or aortic dissection/aneurysm. He has had an approximate 30 pound weight loss over the last 12-18 months. He reports blood in his bowel movements. Past History Past Medical History: cancer (history of basal cell and melanoma skin cancer of the face), hypertension Past Surgical History: Other (basal cell carcinoma and melanoma removed at [facility] about a year and a half ago) Social history: Lives alone, smoking (smokes approximately 2-3 cigarettes per week) Family history: no significant family history (none listed) Medications and Allergies Allergies Allergy/AdvReac Type Severity Reaction Status Date / Time No Known Allergies Allergy Verified 10/20/16 18:36 Home Medications Medication Instructions Recorded Confirmed Last Taken Type Benazepril/Hydrochlorothiazide 1 tab PO DAILY 10/20/16 10/20/16 10/20/16 History [Benazepril-Hctz 20-25 mg] Lisinopril [Zestril] 20 mg PO QDAY 10/20/16 10/20/16 10/20/16 History Active Meds: Active Medications Acetaminophen (Tylenol) 650 mg PO Q6H PRN PRN Reason: Pain Famotidine (Pepcid) 20 mg PO QDAY DENAE Last Admin: 10/21/16 13:51 Dose: 20 mg Hydralazine HCl (Apresoline) 10 mg IV Q6H PRN PRN Reason: SBP > 160 Last Admin: 10/21/16 13:49 Dose: 10 mg Sodium Chloride (Nacl 0.45% 1000 Ml) 1,000 mls @ 50 mls/hr IV DIRECT DENAE Last Admin: 10/21/16 02:30 Dose: 50 mls/hr Morphine Sulfate (Morphine) 2 mg IV Q4H PRN PRN Reason: Pain, Moderate (4-6) Ondansetron HCl (Zofran) 4 mg IV Q4H PRN PRN Reason: N/V unrelieved by Reglan Review of Systems All systems: negative (the remaining systems were reviewed and found to have no pertinent complaints) Constitutional: weight loss Gastrointestinal: abdominal pain, melena Exam - Constitutional Vitals: Temp Pulse Resp BP Pulse Ox 98.2 F 64 13 153/50 96 10/21/16 12:00 10/21/16 13:49 10/21/16 10:00 10/21/16 13:49 10/21/16 09:00 General appearance: Present: no acute distress - EENT Eyes: Present: EOM intact ENT: hearing intact - Neck Neck: Present: supple - Respiratory Respiratory effort: normal (unlabored at rest on room air) - Cardiovascular Rhythm: regular - Extremities Extremities: no ischemia, pulses intact (easily palpable radial and dorsalis pedis pulses bilaterally, I can feel a posterior tibial pulse on the right but more difficult to palpate on the left. All 4 extremities appear to be adequately perfused.), normal temperature - Abdominal General gastrointestinal: Present: soft, other (mildly tender to deep palpation on the right. No evidence of peritoneal signs. Nontender in the other quadrants) - Psychiatric Psychiatric: appropriate mood/affect, intact judgment & insight, cooperative - Neurologic Neurologic: no focal deficits Results - Labs CBC & Chem 7: 10/21/16 04:17 10/21/16 04:17 Labs: Abnormal lab results 10/21/16 10/21/16 10/21/16 Range/Units 04: 04:17 10:15 Hgb 7.5 L (11.8-15.2) gm/dl Hct 26.6 L (35.5-45.6) % MCV 65 L (84-94) fl MCH 20 L (28-32) pg MCHC 30 L (32-34) % RDW 17.2 H (13.2-15.2) % [place] % (Auto) 10.3 H (0.0-7.3) % Lymph # 1.1 L (1.2-5.4) K/mm3 Seg Neutrophils % 74.0 H (40.0-70.0) % BUN 23 H (9-20) mg/dL Glucose 128 H (75-100) mg/dL Calcium 8.3 L (8.4-10.2) mg/dL Crossmatch See Detail Assessment and Plan This patient presented with a several month history of abdominal pain. He's had an unintentional weight loss weight loss greater than 10% of his total body weight over the last 12-[address] scan of the abdomen revealed a large cecal mass with suspected metastatic lymphadenopathy. The patient has a penetrating atheromatous ulcer, which is a dissection equivalent. The patient is presently being worked up for his a presumed metastatic colon cancer. He is likely for colonoscopy and subsequent colectomy later this hospitalization. Would postpone intervention of his aortic lesion until he recovers from his colon surgery (to decrease the risk of aortic graft infection). Surgical options include an endovascular repair with an aortic stent graft. The risks benefits and alternatives were discussed in detail to the patient, who stated understanding and has agreed to proceed. Patient to follow-up in our office in 1-2 weeks after discharge. - Patient Problems (1) Aortic aneurysm with dissection Current Visit: Yes Status: Acute (2) Mass of cecum Current Visit: Yes Status: Acute (3) Lymphadenopathy, abdominal Current Visit: Yes Status: Acute
[2016-10-21] MEDS ORDERED: NACL 0.9% 500 ML 500 ML ONE (14:47)
[2016-10-21] MEDS: NORMODYNE PO SCH ×2 (17:16→22:06)
[2016-10-21 20:35] LABS: Reticulocyte % 1.26 % (0.78-2.58)
[2016-10-21 20:53] LABS: Iron 17 ug/dL (49-181); Lactate Dehydrogenase 125 units/L (91-180); Total Iron Binding Capacity 276 mcg/dL (250-450)
--- NOTE | 2016-10-22 02:10 | Consultation ---
HISTORY OF PRESENT ILLNESS: The patient is a 61-year-old male who has been experiencing abdominal pain for over a month and he was admitted and found to have abdominal mass with suspected mets. A Cardiology consult was requested for hypertension. The patient has a history of heart murmur. He normally goes to the [facility] in [facility]. He is not that active and describes some dyspnea on exertion and easy fatigability. There has been no chest pain or palpitations. There has been minimal dizziness that he relates to the hypertension medicine. There has been no strokes, claudication, or ankle edema. There is no family history of heart disease, history of hyperlipidemia, history of diabetes or history of smoking. There is no history of vascular disease. He has had melanoma and basal cell cancers removed from his skin in the past. He did not describe any insomnia issues. There has been no nausea, vomiting, diarrhea, but he did see rectal bleeding once. He was found to be significantly anemic. ALLERGIES: None. SOCIAL HISTORY: Smoking: None. Alcohol: No heavy use. PREVIOUS SURGERIES: Skin cancer. FAMILY HISTORY: Negative for heart disease. MEDICATIONS: See the nurse's list. REVIEW OF SYSTEMS: No other complaints or medical problems. PHYSICAL EXAMINATION: GENERAL: Well developed, moderately overweight, no acute distress. Alert, oriented and cooperative. Mental status normal. HEENT: Unremarkable. NECK: Reveals no JVD. HEART: The aortic murmur can be heard over both carotids. There is no significant delay in the carotid upstroke. LUNGS: Clear. No labored respirations. HEART: Regular rhythm, grade 3 systolic murmur heard in the aortic distribution, S4 gallop. ABDOMEN: Soft, nontender, no masses. Bowel sounds intact. EXTREMITIES: No cyanosis, clubbing, edema. Peripheral pulses are intact. NEUROLOGICAL: Symmetrical. SKIN: Clear. LABORATORY DATA: EKG pending. IMPRESSION: 1. Cancerous mass at the cecum with probable metastatic lesions in the abdomen. 2. History of hypertension. 3. Aortic murmur: Suspect aortic valve sclerosis or mild stenosis. 4. Small abdominal aortic aneurysm with evidence of dissection flap and pseudoaneurysm, Vascular Surgery has been consulted, this may be old. 5. Obesity. 6. Dyspnea on exertion and easy fatigability: Possibly due to valvular heart disease, deconditioning, consider underlying coronary artery disease. PLAN: Echocardiogram, hypertension management, check cholesterol levels. Stress test may need to be considered at some point. Thank you for this consultation. JOB# [id number] KYLEIGH/TRANG
--- NOTE | 2016-10-22 04:11 | Consultation ---
CONSULTING PHYSICIAN: Rhett Jack MD REASON FOR CONSULTATION: Critical care. CHIEF COMPLAINT AND HISTORY OF PRESENT ILLNESS: The patient is a 61-year-old male with past medical history of treated basal cell carcinoma and melanoma of the skin with surgical resection of both and hypertension. It is unclear when the surgery was done. Came into the hospital complaining of abdominal pain that had been going on really since June and described as a sharp right lower quadrant abdominal pain, moderate in intensity. He thinks that some types of meals including like beef makes the pain worse. He denied nausea, vomiting, diarrhea. He did admit to a 20+ pound weight loss since then, despite what is to him a good appetite. He came into the Emergency Room for evaluation. While being worked up in the Emergency Room, amongst other things, the CT of the abdomen and pelvis showed a large malignant cavitary mass arising from the cecum about 8 x 10 x 12 cm. He also has an infrarenal abdominal aortic aneurysm with chronic, I believe, dissection and a left chronic pseudoaneurysm measuring in the 2 x 3 cm range according to the records. He required an IV labetalol drip to maintain his blood pressure and for that reason, I believe he was brought into the Intensive Care Unit. When I stopped by to see him, he was feeling better, still with some pain. No nausea, no vomiting, no fevers, no chills. He denied gross hematochezia, but stated he has noticed blood on the wipes. Otherwise, he denies any new lumps, bumps, or swellings anywhere. No swollen lymph nodes. That really is as much of the history of presentation as I have. Now, I should mention with regards to his tobacco use/abuse history, he is a never smoker. PAST MEDICAL HISTORY: History of a basal cell carcinoma and melanoma, also a history of hypertension. He is also obese. PAST SURGICAL HISTORY: He has had cancer surgery in the ear and his face. MEDICATIONS: He was on at the time I stopped by to see him, according to the medication administration record included the following: He was on Tylenol 650 mg p.o. q.6h. p.r.n. pain, Pepcid 20 mg p.o. daily, morphine sulfate 2 mg IV q.4h. p.r.n. moderate pain, Zofran 4 mg IV q.4h. p.r.n. nausea and vomiting, and had been on a half NS drip at 50 mL per hour. ALLERGIES: No known drug allergies. DIET: Obese gentleman. He does say he has lost about 20+ pounds since June. FAMILY AND SOCIAL HISTORY: Lives in the community. No current alcohol, tobacco, or illicit drug use or abuse. He is a never smoker. Family history otherwise noncontributory. REVIEW OF SYSTEMS: No loss of consciousness. No new onset seizures. No new onset focal weakness. No gross hematochezia or melena. No gross hematuria or dysuria. No hematemesis. No hemoptysis. No yellowing of his skin or eyes. Complete review of systems obtained. Pertinent positives and/or negatives as in body of history above, otherwise they are noncontributory. PHYSICAL EXAMINATION: VITAL SIGNS: At presentation, he is afebrile, temperature 98.0, pulse 57, respiratory rate 22, blood pressure , oxygen sats were 98%, inspired oxygen concentration was not recorded, blood pressure went as high as 226/67 in the Emergency Room. HEAD, EYES, EARS, NOSE, AND THROAT: Pupils are equal, round, about 3-4 mm, reactive to light. Extraocular muscle movements appeared intact. He has a scar to the left side of his forehead, presumably from his melanoma surgery. Grossly, no palpable lymph nodes in the supraclavicular or submandibular lymph node chains. LUNGS: Auscultation of both lung werner unremarkable. Lungs are clear bilaterally. HEART: Heart sounds 1 and 2 are heard, regular rate and rhythm at the time of my evaluation. ABDOMEN: Soft, full, bowel sounds are positive. Mild right lower quadrant tenderness. No obvious organomegaly otherwise. NEUROLOGIC: The exam was grossly nonfocal. EXTREMITIES: Without overt digital clubbing, cyanosis, or pedal edema. LABORATORY DATA: From my review are as follows: Admission white cell count 14,100 with a hemoglobin of 9.3, hematocrit of 31.8, platelets 473. Serum sodium 135, potassium 4.2, chloride 98, bicarbonate 24, BUN 28, creatinine 1.5, glucose 117. Liver function tests essentially within normal limits. Serum iron was low at 12. Urinalysis negative for nitrites. He does have trace leukocyte esterase, however, only 3 white cells per high power field. TSH is within normal limits. Radiographic studies were done. A CT of the abdomen and pelvis was done yesterday that essentially reported a large malignant cavitary mass arising from the cecum as described above. Oral contrast was requested and a repeat CT of the abdomen and pelvis was done that essentially shows the same finding and a stable infrarenal abdominal aortic aneurysm measuring 3.7 cm, pancreatic head mass was not seen on followup. ASSESSMENT AND PLAN: We have an elderly gentleman in with what is probably a cecal cancer, the history of melanoma is bothersome, but I doubt that this is a solitary metastatic focus over here. We will continue blood pressure medications. He does not have a dissecting aortic aneurysm as I earlier made to believe. He has an abdominal aortic aneurysm and no obvious acute decompensation. He will be followed by the vascular team. He will continue on his antihypertensive medications right now. He has been seen by the surgeon. He has been seen by the vascular team. He will continue on GI prophylaxis, DVT prophylaxis will also be added. Flu and pneumonia vaccination will be per protocol. He is looking well. He can go to the medical floor. Thank you for the consult. I will see as needed. JOB# [id number] BRITNEY/TRANG
[2016-10-22 05:19] LABS: Basophils % (Auto) 0.9 % (0.0-1.8); Eosinophils % (Auto) 1.1 % (0.0-4.3); Hematocrit 26.6 % (35.5-45.6); Hemoglobin 8.1 gm/dl (11.8-15.2); Mean Corpuscular HGB Conc 31 % (32-34); Platelet Count 320 K/mm3 (140-440); Red Blood Count 3.98 M/mm3 (3.65-5.03); White Blood Count 8.1 K/mm3 (4.5-11.0)
[2016-10-22 05:20] LABS: Mean Corpuscular Hemoglobin 20 pg (28-32); Mean Corpuscular Volume 67 fl (84-94)
[2016-10-22 05:39] LABS: Anion Gap 18 mmol/L; Blood Urea Nitrogen 17 mg/dL (9-20); Calcium 8.4 mg/dL (8.4-10.2); Carbon Dioxide 22 mmol/L (22-30); Chloride 103.4 mmol/L (98-107); Glucose 111 mg/dL (75-100); Potassium 3.8 mmol/L (3.6-5.0); Sodium 140 mmol/L (137-145)
--- NOTE | 2016-10-22 08:51 | Progress Note ---
Assessment and Plan IMP: Cecal cancer. PLAN: Pending colonoscopy. Will schedule for surgery Monday in case Cecal Ca is corroborated. Subjective Date of service: 10/22/16 Patient Reports: Positive: no new complaints Objective Vital Signs - 12hr 10/21/16 10/21/16 10/21/16 21:15 22:00 22:06 Temperature 98.5 F Pulse Rate 59 L 67 Respiratory 19 Rate Blood Pressure 122/44 122/54 O2 Sat by Pulse 96 Oximetry 10/22/16 10/22/16 10/22/16 00:00 02:00 04:00 Temperature 98.6 F 97.6 F Pulse Rate 57 L 61 63 Respiratory 13 17 13 Rate Blood Pressure 132/52 132/52 144/51 O2 Sat by Pulse 97 95 Oximetry 10/22/16 07:52 Temperature 98.2 F Pulse Rate Respiratory Rate Blood Pressure O2 Sat by Pulse Oximetry - Abdomen soft, not tender, bowel sounds normal - Labs 10/22/16 04:29 10/22/16 04:29 Diabetes panel 10/22/16 Range/Units 04:29 Sodium 140 (137-145) mmol/L Potassium 3.8 (3.6-5.0) mmol/L Chloride 103.4 (98-107) mmol/L Carbon Dioxide 22 (22-30) mmol/L BUN 17 (9-20) mg/dL Creatinine 1.0 (0.8-1.5) mg/dL Glucose 111 H (75-100) mg/dL Calcium 8.4 (8.4-10.2) mg/dL Thyroid panel 10/21/16 Range/Units 10:15 TSH 1.870 (0.270-4.200) mlU/mL Calcium panel 10/22/16 Range/Units 04:29 Calcium 8.4 (8.4-10.2) mg/dL Pituitary panel 10/21/16 10/22/16 Range/Units 10:15 04:29 Sodium 140 (137-145) mmol/L Potassium 3.8 (3.6-5.0) mmol/L Chloride 103.4 (98-107) mmol/L Carbon Dioxide 22 (22-30) mmol/L BUN 17 (9-20) mg/dL Creatinine 1.0 (0.8-1.5) mg/dL Glucose 111 H (75-100) mg/dL Calcium 8.4 (8.4-10.2) mg/dL TSH 1.870 (0.270-4.200) mlU/mL Adrenal panel 10/22/16 Range/Units 04:29 Sodium 140 (137-145) mmol/L Potassium 3.8 (3.6-5.0) mmol/L Chloride 103.4 (98-107) mmol/L Carbon Dioxide 22 (22-30) mmol/L BUN 17 (9-20) mg/dL Creatinine 1.0 (0.8-1.5) mg/dL Glucose 111 H (75-100) mg/dL Calcium 8.4 (8.4-10.2) mg/dL
--- NOTE | 2016-10-22 09:49 | Gastroenterology Progress Note ---
Assessment and Plan - Patient Problems (1) Mass of cecum Current Visit: Yes Status: Acute Plan to address problem: Cecal cancer is highly probable. This was discussed with patient. Colonoscopy is planned for tomorrow. Change diet now to clears and prep tonight. (2) Aortic dissection, abdominal Current Visit: Yes Status: Acute (3) Iron deficiency anemia Current Visit: Yes Status: Acute Qualifiers: Iron deficiency anemia type: I (4) Pseudoaneurysm of aorta Current Visit: Yes Status: Acute Subjective Date of service: 10/22/16 Principal diagnosis: Cecal mass Interval history: The patient reports feeling well today. No abdominal pain. Objective - Constitutional Vitals: Temp Pulse Resp BP Pulse Ox 98.2 F 57 L 16 151/60 96 10/22/16 07:52 10/22/16 08:00 10/22/16 08:00 10/22/16 08:00 10/22/16 08:00 General appearance: no acute distress - EENT ENT: hearing intact, clear oral mucosa, dentition normal - Neck Neck: supple, normal ROM - Respiratory Respiratory effort: normal Respiratory: bilateral: CTA - Cardiovascular Rhythm: regular - Gastrointestinal General gastrointestinal: Present: soft, non-tender, non-distended, normal bowel sounds - Neurologic Neurological: alert and oriented x3 - Labs CBC & Chem 7: 10/22/16 04:29 10/22/16 04:29 Labs: Laboratory Results - last 24 hr 10/21/16 10/21/16 10/21/16 10:15 10:15 10:15 WBC RBC Hgb Hct MCV MCH MCHC RDW Plt Count Lymph % (Auto) [place] % (Auto) Eos % (Auto) Baso % (Auto) Lymph # [place] # Eos # Baso # Seg Neutrophils % Seg Neutrophils # Percent Retic 1.24 Sodium Potassium Chloride Carbon Dioxide Anion Gap BUN Creatinine Estimated GFR BUN/Creatinine Ratio Glucose Calcium Iron TIBC Ferritin Lactate Dehydrogenase Vitamin B12 429.8 Folate TSH Blood Type O POSITIVE Antibody Screen Negative Crossmatch See Detail 10/21/16 10/21/16 10/21/16 10:15 10:15 20:08 WBC RBC Hgb Hct MCV MCH MCHC RDW Plt Count Lymph % (Auto) [place] % (Auto) Eos % (Auto) Baso % (Auto) Lymph # [place] # Eos # Baso # Seg Neutrophils % Seg Neutrophils # Percent Retic 1.26 Sodium Potassium Chloride Carbon Dioxide Anion Gap BUN Creatinine Estimated GFR BUN/Creatinine Ratio Glucose Calcium Iron TIBC Ferritin Lactate Dehydrogenase Vitamin B12 Folate 11.83 TSH 1.870 Blood Type Antibody Screen Crossmatch 10/21/16 10/21/16 10/21/16 20:08 20:08 20:08 WBC RBC Hgb Hct MCV MCH MCHC RDW Plt Count Lymph % (Auto) [place] % (Auto) Eos % (Auto) Baso % (Auto) Lymph # [place] # Eos # Baso # Seg Neutrophils % Seg Neutrophils # Percent Retic Sodium Potassium Chloride Carbon Dioxide Anion Gap BUN Creatinine Estimated GFR BUN/Creatinine Ratio Glucose Calcium Iron 17 L TIBC 276 Ferritin 40.0 Lactate Dehydrogenase 125 Vitamin B12 471.6 Folate TSH Blood Type Antibody Screen Crossmatch 10/21/16 10/22/16 10/22/16 20:08 04:29 04:29 WBC 8.1 RBC 3.98 Hgb 8.1 L Hct 26.6 L MCV 67 L MCH 20 L MCHC 31 L RDW 18.0 H Plt Count 320 Lymph % (Auto) 15.4 [place] % (Auto) 11.0 H Eos % (Auto) 1.1 Baso % (Auto) 0.9 Lymph # 1.2 [place] # 0.9 H Eos # 0.1 Baso # 0.1 Seg Neutrophils % 71.6 H Seg Neutrophils # 5.8 Percent Retic Sodium 140 Potassium 3.8 Chloride 103.4 Carbon Dioxide 22 Anion Gap 18 BUN 17 Creatinine 1.0 Estimated GFR > 60 BUN/Creatinine Ratio 17.00 Glucose 111 H Calcium 8.4 Iron TIBC Ferritin Lactate Dehydrogenase Vitamin B12 Folate 11.76 TSH Blood Type Antibody Screen Crossmatch Laboratory Results - last 24 hr 10/21/16 10/21/16 10/21/16 10:15 10:15 10:15 WBC RBC Hgb Hct MCV MCH MCHC RDW Plt Count Lymph % (Auto) [place] % (Auto) Eos % (Auto) Baso % (Auto) Lymph # [place] # Eos # Baso # Seg Neutrophils % Seg Neutrophils # Percent Retic 1.24 Sodium Potassium Chloride Carbon Dioxide Anion Gap BUN Creatinine Estimated GFR BUN/Creatinine Ratio Glucose Calcium Iron TIBC Ferritin Lactate Dehydrogenase Vitamin B12 429.8 Folate TSH Blood Type O POSITIVE Antibody Screen Negative Crossmatch See Detail 10/21/16 10/21/16 10/21/16 10:15 10:15 20:08 WBC RBC Hgb Hct MCV MCH MCHC RDW Plt Count Lymph % (Auto) [place] % (Auto) Eos % (Auto) Baso % (Auto) Lymph # [place] # Eos # Baso # Seg Neutrophils % Seg Neutrophils # Percent Retic 1.26 Sodium Potassium Chloride Carbon Dioxide Anion Gap BUN Creatinine Estimated GFR BUN/Creatinine Ratio Glucose Calcium Iron TIBC Ferritin Lactate Dehydrogenase Vitamin B12 Folate 11.83 TSH 1.870 Blood Type Antibody Screen Crossmatch 10/21/16 10/21/16 10/21/16 20:08 20:08 20:08 WBC RBC Hgb Hct MCV MCH MCHC RDW Plt Count Lymph % (Auto) [place] % (Auto) Eos % (Auto) Baso % (Auto) Lymph # [place] # Eos # Baso # Seg Neutrophils % Seg Neutrophils # Percent Retic Sodium Potassium Chloride Carbon Dioxide Anion Gap BUN Creatinine Estimated GFR BUN/Creatinine Ratio Glucose Calcium Iron 17 L TIBC 276 Ferritin 40.0 Lactate Dehydrogenase 125 Vitamin B12 471.6 Folate TSH Blood Type Antibody Screen Crossmatch 10/21/16 10/22/16 10/22/16 20:08 04:29 04:29 WBC 8.1 RBC 3.98 Hgb 8.1 L Hct 26.6 L MCV 67 L MCH 20 L MCHC 31 L RDW 18.0 H Plt Count 320 Lymph % (Auto) 15.4 [place] % (Auto) 11.0 H Eos % (Auto) 1.1 Baso % (Auto) 0.9 Lymph # 1.2 [place] # 0.9 H Eos # 0.1 Baso # 0.1 Seg Neutrophils % 71.6 H Seg Neutrophils # 5.8 Percent Retic Sodium 140 Potassium 3.8 Chloride 103.4 Carbon Dioxide 22 Anion Gap 18 BUN 17 Creatinine 1.0 Estimated GFR > 60 BUN/Creatinine Ratio 17.00 Glucose 111 H Calcium 8.4 Iron TIBC Ferritin Lactate Dehydrogenase Vitamin B12 Folate 11.76 TSH Blood Type Antibody Screen Crossmatch
[2016-10-22] MEDS ORDERED: GOLYTELY PO SCH (10:00)
--- NOTE | 2016-10-22 10:14 | Hem/Onc Progress Note ---
Subjective Date of service: 10/22/16 Interval history: Presentation most consistent with colon cancer. Patient has some RLQ pain, else doing well - Pending colonscopy Objective - Constitutional Vitals: Last Vital Signs Temp 98.2 F 10/22/16 07:52 Pulse 57 L 10/22/16 08:00 Resp 16 10/22/16 08:00 BP 151/60 10/22/16 08:00 Pulse Ox 96 10/22/16 08:00 Pain Intensity (0-10): 0/10 Performance status: 1-light work, ambulatory - EENT Eyes: PERRL, EOM intact - Neck Neck: supple, rigidity - Respiratory Respiratory effort: Positive: normal Respiratory: bilateral: CTA - Cardiovascular Rhythm: regular Extremities: No edema - Labs Lab Results: Laboratory Results - last 24 hr 10/21/16 10/21/16 10/21/16 10:15 10:15 10:15 WBC RBC Hgb Hct MCV MCH MCHC RDW Plt Count Lymph % (Auto) [place] % (Auto) Eos % (Auto) Baso % (Auto) Lymph # [place] # Eos # Baso # Seg Neutrophils % Seg Neutrophils # Percent Retic 1.24 Sodium Potassium Chloride Carbon Dioxide Anion Gap BUN Creatinine Estimated GFR BUN/Creatinine Ratio Glucose Calcium Iron TIBC Ferritin Lactate Dehydrogenase Vitamin B12 429.8 Folate TSH Blood Type O POSITIVE Antibody Screen Negative Crossmatch See Detail 10/21/16 10/21/16 10/21/16 10:15 10:15 20:08 WBC RBC Hgb Hct MCV MCH MCHC RDW Plt Count Lymph % (Auto) [place] % (Auto) Eos % (Auto) Baso % (Auto) Lymph # [place] # Eos # Baso # Seg Neutrophils % Seg Neutrophils # Percent Retic 1.26 Sodium Potassium Chloride Carbon Dioxide Anion Gap BUN Creatinine Estimated GFR BUN/Creatinine Ratio Glucose Calcium Iron TIBC Ferritin Lactate Dehydrogenase Vitamin B12 Folate 11.83 TSH 1.870 Blood Type Antibody Screen Crossmatch 10/21/16 10/21/16 10/21/16 20:08 20:08 20:08 WBC RBC Hgb Hct MCV MCH MCHC RDW Plt Count Lymph % (Auto) [place] % (Auto) Eos % (Auto) Baso % (Auto) Lymph # [place] # Eos # Baso # Seg Neutrophils % Seg Neutrophils # Percent Retic Sodium Potassium Chloride Carbon Dioxide Anion Gap BUN Creatinine Estimated GFR BUN/Creatinine Ratio Glucose Calcium Iron 17 L TIBC 276 Ferritin 40.0 Lactate Dehydrogenase 125 Vitamin B12 471.6 Folate TSH Blood Type Antibody Screen Crossmatch 10/21/16 10/22/16 10/22/16 20:08 04:29 04:29 WBC 8.1 RBC 3.98 Hgb 8.1 L Hct 26.6 L MCV 67 L MCH 20 L MCHC 31 L RDW 18.0 H Plt Count 320 Lymph % (Auto) 15.4 [place] % (Auto) 11.0 H Eos % (Auto) 1.1 Baso % (Auto) 0.9 Lymph # 1.2 [place] # 0.9 H Eos # 0.1 Baso # 0.1 Seg Neutrophils % 71.6 H Seg Neutrophils # 5.8 Percent Retic Sodium 140 Potassium 3.8 Chloride 103.4 Carbon Dioxide 22 Anion Gap 18 BUN 17 Creatinine 1.0 Estimated GFR > 60 BUN/Creatinine Ratio 17.00 Glucose 111 H Calcium 8.4 Iron TIBC Ferritin Lactate Dehydrogenase Vitamin B12 Folate 11.76 TSH Blood Type Antibody Screen Crossmatch
--- NOTE | 2016-10-22 10:52 | Progress Note ---
Assessment and Plan - Patient Problems (1) Aortic dissection, abdominal Current Visit: Yes Status: Acute Plan to address problem: - no active dissection - no plan for immediate operative intervention - BP now controlled - clinically asymptomatic (2) Intestinal mass Current Visit: Yes Status: Acute Plan to address problem: - suspect colon CA - being prepped for colonoscopy (3) Iron deficiency anemia Current Visit: Yes Status: Acute Qualifiers: Iron deficiency anemia type: I Plan to address problem: - likely due to above cancer - prn blood transfusion for Hb <7.0 - iron supplementation (4) Discharge planning issues Current Visit: Yes Status: Acute Plan to address problem: - transfer to medical floor Subjective Date of service: 10/22/16 Principal diagnosis: Cecal mass Interval history: Seen and examined at bedside; 24 hour events reviewed; nursing and respiratory care staff consulted; no adverse overnight events reported to me; resting peacefully; denies acute chest pains or increased SOB; drinking go-lytely and using bathroom regularly; no BRBPR Objective Vital Signs - 12hr 10/22/16 10/22/16 10/22/16 00:00 02:00 04:00 Temperature 98.6 F 97.6 F Pulse Rate 57 L 61 63 Respiratory 13 17 13 Rate Blood Pressure 132/52 132/52 144/51 O2 Sat by Pulse 97 95 Oximetry 10/22/16 10/22/16 10/22/16 06:00 07:52 08:00 Temperature 98.2 F Pulse Rate 58 L 57 L Respiratory 15 16 Rate Blood Pressure 150/56 151/60 O2 Sat by Pulse 98 96 Oximetry Constitutional: no acute distress, alert Eyes: non-icteric ENT: oropharynx moist Neck: supple, no lymphadenopathy Effort: normal Ascultation: Bilateral: clear Cardiovascular: regular rate and rhythm Gastrointestinal: normoactive bowel sounds, soft, non-tender, non-distended Integumentary: normal Extremities: no cyanosis, no edema, pink and warm, pulses normal, no ischemia or petechiae Neurologic: normal mental status, non-focal exam, pupils equal and round, motor strength normal and Psychiatric: mood appropriate, affect normal CBC and BMP: 10/22/16 04:29 10/22/16 04:29 Abnormal lab findings: Abnormal Labs 10/21/16 10/21/16 10/21/16 04:17 04:17 10:15 Hgb 7.5 L Hct 26.6 L MCV 65 L MCH 20 L MCHC 30 L RDW 17.2 H [place] % (Auto) 10.3 H Lymph # 1.1 L [place] # Seg Neutrophils % 74.0 H BUN 23 H Glucose 128 H Calcium 8.3 L Iron Crossmatch See Detail 10/21/16 10/22/16 10/22/16 20:08 04:29 04:29 Hgb 8.1 L Hct 26.6 L MCV 67 L MCH 20 L MCHC 31 L RDW 18.0 H [place] % (Auto) 11.0 H Lymph # [place] # 0.9 H Seg Neutrophils % 71.6 H BUN Glucose 111 H Calcium Iron 17 L Crossmatch
[2016-10-22] MEDS: NORMODYNE PO SCH ×2 (11:11→21:11)
[2016-10-22] MEDS: PEPCID PO SCH (11:11)
--- NOTE | 2016-10-22 12:15 | Progress Note ---
Assessment and Plan Assessment and plan: 1. Large right colon mass in the area of the cecum. GI following. Colonoscopy planned for tomorrow. 2. Anemia. Etiology is most likely acute blood loss anemia. Patient status post transfusion. 3. Infrarenal abdominal aortic aneurysm. Vascular surgery consultation pending. 4. Hypertension. Resume antihypertensives medications. 5. History of basal cell cancer and melanoma. 6. DVT prophylaxis. SCDs only given the anemia. History Interval history: 61-year-old man with a history of basal cell cancer, melanoma, hypertension comes emergency room with complaining of right lower quadrant pain since [place]. On his CT scan, he was found to have a large right lower quadrant mass about 8 x 9 x 12 cm and evidence of lymphadenopathy and mesenteric lesions. He also was found to have a questionable mass in the head of the pancreas and infrarenal abdominal aortic aneurysm. Patient was admitted for further evaluation. No new issues overnight. Hospitalist Physical - Constitutional Vitals: Temp Pulse Resp BP Pulse Ox 98.2 F 61 14 141/53 97 10/22/16 07:52 10/22/16 11:11 10/22/16 10:00 10/22/16 11:11 10/22/16 10:00 General appearance: Present: no acute distress - EENT Eyes: Present: PERRL, EOM intact ENT: hearing intact, clear oral mucosa, dentition normal - Neck Neck: Present: supple, normal ROM - Respiratory Respiratory effort: normal Respiratory: bilateral: CTA - Cardiovascular Rhythm: regular Heart Sounds: Present: S1 & S2. Absent: gallop, rub - Extremities Extremities: no ischemia, No edema, Full ROM - Abdominal General gastrointestinal: soft, non-tender, non-distended, normal bowel sounds - Integumentary Integumentary: Present: clear, warm, dry - Neurologic Neurologic: CNII-XII intact, moves all extremities Results - Labs CBC & Chem 7: 10/22/16 04:29 10/22/16 04:29 Labs: Laboratory Last Values WBC 8.1 K/mm3 (4.5-11.0) 10/22/16 04:29 RBC 3.98 M/mm3 (3.65-5.03) 10/22/16 04:29 Hgb 8.1 gm/dl (11.8-15.2) L 10/22/16 04:29 Hct 26.6 % (35.5-45.6) L 10/22/16 04: MCV 67 fl (84-94) L 10/22/16 04: MCH 20 pg (28-32) L 10/22/16 04:29 MCHC 31 % (32-34) L 10/22/16 04:29 RDW 18.0 % (13.2-15.2) H 10/22/16 04:29 Plt Count 320 K/mm3 (140-440) 10/22/16 04:29 Lymph % (Auto) 15.4 % (13.4-35.0) 10/22/16 04:29 [place] % (Auto) 11.0 % (0.0-7.3) H 10/22/16 04:29 Eos % (Auto) 1.1 % (0.0-4.3) 10/22/16 04:29 Baso % (Auto) 0.9 % (0.0-1.8) 10/22/16 04: Lymph # 1.2 K/mm3 (1.2-5.4) 10/22/16 04:29 [place] # 0.9 K/mm3 (0.0-0.8) H 10/22/16 04:29 Eos # 0.1 K/mm3 (0.0-0.4) 10/22/16 04:29 Baso # 0.1 K/mm3 (0.0-0.1) 10/22/16 04:29 Seg Neutrophils % 71.6 % (40.0-70.0) H 10/22/16 04: Seg Neutrophils # 5.8 K/mm3 (1.8-7.7) 10/22/16 04:29 Percent Retic 1.26 % (0.78-2.58) 10/21/16 20:08 Sodium 140 mmol/L (137-145) 10/22/16 04:29 Potassium 3.8 mmol/L (3.6-5.0) 10/22/16 04: Chloride 103.4 mmol/L (98-107) 10/22/16 04:29 Carbon Dioxide 22 mmol/L (22-30) 10/22/16 04:29 Anion Gap 18 mmol/L 10/22/16 04:29 BUN 17 mg/dL (9-20) 10/22/16 04:29 Creatinine 1.0 mg/dL (0.8-1.5) 10/22/16 04:29 Estimated GFR > 60 ml/min 10/22/16 04:29 BUN/Creatinine Ratio 17.00 % 10/22/16 04:29 Glucose 111 mg/dL (75-100) H 10/22/16 04:29 Calcium 8.4 mg/dL (8.4-10.2) 10/22/16 04:29 Iron 17 ug/dL (49-181) L 10/21/16 20:08 TIBC 276 mcg/dL (250-450) 10/21/16 20:08 % Saturation 2.98 % 10/20/16 13:06 Transferrin 288 mg/dl (180-329) 10/20/16 13:06 Ferritin 40.0 ng/mL (13.0-400.0) 10/21/16 20:08 Total Bilirubin 0.4 mg/dL (0.1-1.2) 10/20/16 13:06 AST 9 units/L (5-40) 10/20/16 13:06 ALT 7 units/L (7-56) 10/20/16 13:06 Alkaline Phosphatase 76 units/L (35-129) 10/20/16 13:06 Lactate Dehydrogenase 125 units/L (91-180) 10/21/16 20:08 Total Protein 7.6 g/dL (6.3-8.2) 10/20/16 13:06 Albumin 4.0 g/dL (3.9-5) 10/20/16 13:06 Albumin/Globulin Ratio 1.1 % 10/20/16 13:06 Lipase 19 units/L (13-60) 10/20/16 13:06 Vitamin B12 471.6 pg/mL (211-911) 10/21/16 20:08 Folate 11.76 ng/mL (7.3-26.0) 10/21/16 20:08 TSH 1.870 mlU/mL (0.270-4.200) 10/21/16 10:15 Urine Color Yellow (Yellow) 10/20/16 16:05 Urine Turbidity Clear (Clear) 10/20/16 16:05 Urine pH 5.0 (5.0-7.0) 10/20/16 16:05 Ur Specific [place] 1.021 (1.003-1.030) 10/20/16 16:05 Urine Protein <15 mg/dl mg/dL (Negative) 10/20/16 16:05 Urine Glucose (UA) Neg mg/dL (Negative) 10/20/16 16:05 Urine Ketones Tr mg/dL (Negative) 10/20/16 16:05 Urine Blood Neg (Negative) 10/20/16 16:05 Urine Nitrite Neg (Negative) 10/20/16 16:05 Urine Bilirubin Neg (Negative) 10/20/16 16:05 Urine Urobilinogen < 2.0 mg/dL (<2.0) 10/20/16 16:05 Ur Leukocyte Esterase Tr (Negative) 10/20/16 16:05 Urine WBC (Auto) 3.0 /HPF (0.0-6.0) 10/20/16 16:05 Urine RBC (Auto) 3.0 /HPF (0.0-6.0) 10/20/16 16:05 U Epithel Cells (Auto) 1.0 /HPF (0-13.0) 10/20/16 16:05 Urine Mucus 1+ /HPF 10/20/16 16:05 Blood Type O POSITIVE 10/21/16 10:15 Antibody Screen Negative 10/21/16 10:15 Crossmatch See Detail 10/21/16 10:15
--- NOTE | 2016-10-22 14:24 | Progress Note ---
Assessment and Plan - Patient Problems (1) Intestinal mass Current Visit: Yes Status: Acute Plan to address problem: Patient presented with abdominal pain and a cecal mass, undergoing possible colonoscopy today. 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 This has been recommended for elective outpatient management by vascular surgery. There are no cardiac complaints, and cardiac status is stable. Due to his underlying vascular disease and multiple risk factors, he is at moderate risk if exploratory surgeries contemplated for his cecal mass. Him and his family comfortable with the anticipated cardiac risk if surgery becomes necessary. Subjective Date of service: 10/22/16 Principal diagnosis: Cecal mass Interval history: Patient presented with abdominal pain and a cecal mass, undergoing possible colonoscopy today. 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 This has been recommended for elective outpatient management by vascular surgery. There are no cardiac complaints, and cardiac status is stable. Due to his underlying vascular disease and multiple risk factors, he is at moderate risk if exploratory surgeries contemplated for his cecal mass. Him and his family comfortable with the anticipated cardiac risk if surgery becomes necessary. Objective Vital Signs Temp Pulse Pulse Pulse Pulse Resp BP 10/22/16 12:00 98.2 F 10/22/16 11:11 61 141/53 10/22/16 10:00 64 14 141/53 10/22/16 08:00 57 L 61 14 151/60 10/22/16 07:52 98.2 F 10/22/16 06:00 58 L 15 150/56 10/22/16 04:00 97.6 F 63 13 144/51 10/22/16 02:00 61 17 132/52 10/22/16 00:00 98.6 F 57 L 13 132/52 10/21/16 22:06 67 122/54 10/21/16 22:00 59 L 19 122/44 10/21/16 21:15 98.5 F 10/21/16 20:00 74 68 64 66 22 129/42 10/21/16 19:00 64 20 154/53 10/21/16 18:50 64 16 154/53 10/21/16 18:42 69 10 L 154/53 10/21/16 18:40 68 12 154/53 10/21/16 18:30 74 21 154/53 10/21/16 18:20 71 19 154/53 10/21/16 18:10 66 14 154/53 10/21/16 18:00 63 20 154/53 10/21/16 17:16 68 180/64 10/21/16 17:00 66 18 180/64 10/21/16 16:00 98.6 F 64 17 153/53 10/21/16 15:10 62 15 154/57 10/21/16 15:00 63 18 154/60 10/21/16 14:50 69 11 L 154/58 10/21/16 14:40 71 20 154/58 10/21/16 14:30 67 19 154/58 Pulse Ox 10/22/16 12:00 10/22/16 11:11 10/22/16 10:00 97 10/22/16 08:00 98 10/22/16 07:52 10/22/16 06:00 98 10/22/16 04:00 10/22/16 02:00 95 10/22/16 00:00 97 10/21/16 22:06 10/21/16 22:00 96 10/21/16 21:15 10/21/16 20:00 100 10/21/16 19:00 99 10/21/16 18:50 99 10/21/16 18:42 99 10/21/16 18:40 99 10/21/16 18:30 98 10/21/16 18:20 99 10/21/16 18:10 99 10/21/16 18:00 96 10/21/16 17:16 10/21/16 17:00 98 10/21/16 16:00 98 10/21/16 15:10 98 10/21/16 15:00 99 10/21/16 14:50 97 10/21/16 14:40 99 10/21/16 14:30 100 - Physical Examination General: Appears Well, No Apparent Distress HEENT: Positive: PERRL Neck: Positive: neck supple Cardiac: Positive: Reg Rate and Rhythm Lungs: Positive: Decreased Breath Sounds Neuro: Positive: Grossly Intact Abdomen: Positive: Soft Skin: Positive: Clear Extremities: Absent: edema - Labs and Meds Cardiac Enzymes 10/21/16 Range/Units 20:08 Lactate Dehydrogenase 125 (91-180) units/L CBC 10/22/16 Range/Units 04:29 WBC 8.1 (4.5-11.0) K/mm3 RBC 3.98 (3.65-5.03) M/mm3 Hgb 8.1 L (11.8-15.2) gm/dl Hct 26.6 L (35.5-45.6) % Plt Count 320 (140-440) K/mm3 Lymph # 1.2 (1.2-5.4) K/mm3 [place] # 0.9 H (0.0-0.8) K/mm3 Eos # 0.1 (0.0-0.4) K/mm3 Baso # 0.1 (0.0-0.1) K/mm3 Comprehensive Metabolic Panel 10/22/16 Range/Units 04:29 Sodium 140 (137-145) mmol/L Potassium 3.8 (3.6-5.0) mmol/L Chloride 103.4 (98-107) mmol/L Carbon Dioxide 22 (22-30) mmol/L BUN 17 (9-20) mg/dL Creatinine 1.0 (0.8-1.5) mg/dL Glucose 111 H (75-100) mg/dL Calcium 8.4 (8.4-10.2) mg/dL
[2016-10-23 04:54] LABS: Basophils % (Auto) 1.4 % (0.0-1.8); Eosinophils % (Auto) 2.1 % (0.0-4.3); Hemoglobin 8.2 gm/dl (11.8-15.2); Mean Corpuscular HGB Conc 30 % (32-34); Platelet Count 295 K/mm3 (140-440); Red Blood Count 4.05 M/mm3 (3.65-5.03); Red Cell Distribution Width 18.6 % (13.2-15.2)
[2016-10-23 05:09] LABS: Mean Corpuscular Hemoglobin 20 pg (28-32); Mean Corpuscular Volume 67 fl (84-94)
[2016-10-23 05:13] LABS: BUN/Creatinine Ratio 11.81; Blood Urea Nitrogen 13 mg/dL (9-20); Calcium 8.5 mg/dL (8.4-10.2); Carbon Dioxide 23 mmol/L (22-30); Glucose 114 mg/dL (75-100)
[2016-10-23] MEDS: NACL 0.45% 1000 ML 1,000 ML IV SCH (06:05)
[2016-10-23 06:40] LABS: Anion Gap 18 mmol/L; Chloride 102.1 mmol/L (98-107); Sodium 139 mmol/L (137-145)
--- NOTE | 2016-10-23 08:04 | Anesthesia Consultation ---
Anesthesia Consult and Med Hx Date of service: 10/24/16 - Airway Anesthetic Teeth Evaluation: Poor, Chipped (broken, denies loose) ROM Head & Neck: Adequate Mental/Hyoid Distance: Adequate Mallampati Class: Class II - Pulmonary Exam CTA: Yes - Cardiac Exam Cardiac Exam: RRR - Pre-Operative Health Status ASA Pre-Surgery Classification: ASA3 Proposed Anesthetic Plan: General - Pulmonary Hx Smoking: Yes (2-3 cigs/week) Hx Asthma: No COPD: No Hx Pneumonia: No - Cardiovascular System Hx Hypertension: Yes Hx Peripheral Vascular Disease: Yes (AAA w/ chronic dissection, seen by Dr. Caballero , medical managment for now) - Endocrine Hx End Stage Renal Disease: No - Hematic Hx Anemia: Yes (.09/12) - Other Systems Hx Cancer: Yes (melanoma, basal cell, cecal mass with lympadenopthy) Hx Obesity: Yes (BMI 31.1) - Additional Comments Anesthesia Medical History Comments: CLEARED BY CARDIOLOGY, MODERATE RISK.
--- NOTE | 2016-10-23 08:26 | Progress Note ---
Assessment and Plan IMP: Cecal mass. PLAN: For colonoscopy today. Subjective Date of service: 10/23/16 Patient Reports: Positive: no new complaints, other (tolerated colon prep without difficulty.) Objective Vital Signs - 12hr 10/23/16 10/23/16 00:00 05:47 Temperature 98.1 F 98.0 F Pulse Rate [ 57 L Left Radial] Pulse Rate [ 59 L Left] Respiratory 20 20 Rate Blood Pressure 138/62 Blood Pressure 157/68 [Left Arm] O2 Sat by Pulse 97 98 Oximetry - Abdomen soft, not tender, bowel sounds normal - Labs 10/23/16 04:25 10/23/16 04:25 Diabetes panel 10/23/16 Range/Units 04:25 Sodium 139 (137-145) mmol/L Potassium 4.0 (3.6-5.0) mmol/L Chloride 102.1 (98-107) mmol/L Carbon Dioxide 23 (22-30) mmol/L BUN 13 (9-20) mg/dL Creatinine 1.1 (0.8-1.5) mg/dL Glucose 114 H (75-100) mg/dL Calcium 8.5 (8.4-10.2) mg/dL Calcium panel 10/23/16 Range/Units 04:25 Calcium 8.5 (8.4-10.2) mg/dL Pituitary panel 10/23/16 Range/Units 04:25 Sodium 139 (137-145) mmol/L Potassium 4.0 (3.6-5.0) mmol/L Chloride 102.1 (98-107) mmol/L Carbon Dioxide 23 (22-30) mmol/L BUN 13 (9-20) mg/dL Creatinine 1.1 (0.8-1.5) mg/dL Glucose 114 H (75-100) mg/dL Calcium 8.5 (8.4-10.2) mg/dL Adrenal panel 10/23/16 Range/Units 04:25 Sodium 139 (137-145) mmol/L Potassium 4.0 (3.6-5.0) mmol/L Chloride 102.1 (98-107) mmol/L Carbon Dioxide 23 (22-30) mmol/L BUN 13 (9-20) mg/dL Creatinine 1.1 (0.8-1.5) mg/dL Glucose 114 H (75-100) mg/dL Calcium 8.5 (8.4-10.2) mg/dL
[2016-10-23] MEDS ORDERED: DIPRIVAN 10 MG/ML IV ONE ×3 (09:11→10:03)
[2016-10-23] MEDS ORDERED: XYLOCAINE MPF 2% ONE (09:11)
[2016-10-23] MEDS ORDERED: WATER FOR IRRIG STERILE IR ONE ×2 (09:14→10:54)
[2016-10-23] MEDS ORDERED: WATER FOR IRRIG STERILE ONE (09:15)
[2016-10-23] MEDS ORDERED: NACL 0.45% 1000 ML 1,000 ML IV ONE (09:20)
[2016-10-23] MEDS ORDERED: NACL 0.9% 1000 ML 1,000 ML ONE ×2 (09:21→09:28)
[2016-10-23] MEDS ORDERED: NACL 0.9% 1000 ML 1,000 ML IV SCH (10:00)
[2016-10-23] MEDS ORDERED: GI SPOT IJ ONE (10:02)
--- NOTE | 2016-10-23 10:04 | Progress Note ---
Assessment and Plan Assessment and plan: 1. Large right colon mass in the area of the cecum. GI following. Colonoscopy planned for today. 2. Anemia. Etiology is most likely acute blood loss anemia. Patient status post transfusion. H&H stable. 3. Infrarenal abdominal aortic aneurysm. Vascular surgery following. 4. Accelerated Hypertension. Increase labetalol to 400 mg twice a day. Continue hydralazine when necessary 5. History of basal cell cancer and melanoma. 6. DVT prophylaxis. SCDs only given the anemia. History Interval history: 61-year-old man with a history of basal cell cancer, melanoma, hypertension comes emergency room with complaining of right lower quadrant pain since [place]. On his CT scan, he was found to have a large right lower quadrant mass about 8 x 9 x 12 cm and evidence of lymphadenopathy and mesenteric lesions. He also was found to have a questionable mass in the head of the pancreas and infrarenal abdominal aortic aneurysm. Patient was admitted for further evaluation. No new issues overnight. Hospitalist Physical - Constitutional Vitals: Temp Pulse Resp BP Pulse Ox 98.1 F 60 18 161/73 96 10/23/16 07:00 10/23/16 08:00 10/23/16 07:00 10/23/16 07:00 10/23/16 07:00 General appearance: Present: no acute distress - EENT Eyes: Present: PERRL, EOM intact ENT: hearing intact, clear oral mucosa, dentition normal - Neck Neck: Present: supple, normal ROM - Respiratory Respiratory effort: normal Respiratory: bilateral: CTA - Cardiovascular Rhythm: regular Heart Sounds: Present: S1 & S2. Absent: gallop, rub - Extremities Extremities: no ischemia, No edema, Full ROM - Abdominal General gastrointestinal: soft, non-tender, non-distended, normal bowel sounds - Integumentary Integumentary: Present: clear, warm, dry - Neurologic Neurologic: CNII-XII intact, moves all extremities Results - Labs CBC & Chem 7: 10/23/16 04:25 10/23/16 04:25 Labs: Laboratory Last Values WBC 7.0 K/mm3 (4.5-11.0) 10/23/16 04:25 RBC 4.05 M/mm3 (3.65-5.03) 10/23/16 04:25 Hgb 8.2 gm/dl (11.8-15.2) L 10/23/16 04:25 Hct 27.0 % (35.5-45.6) L 10/23/16 04:25 MCV 67 fl (84-94) L 10/23/16 04:25 MCH 20 pg (28-32) L 10/23/16 04:25 MCHC 30 % (32-34) L 10/23/16 04:25 RDW 18.6 % (13.2-15.2) H 10/23/16 04:25 Plt Count 295 K/mm3 (140-440) 10/23/16 04:25 Lymph % (Auto) 15.6 % (13.4-35.0) 10/23/16 04:25 [place] % (Auto) 11.2 % (0.0-7.3) H 10/23/16 04:25 Eos % (Auto) 2.1 % (0.0-4.3) 10/23/16 04:25 Baso % (Auto) 1.4 % (0.0-1.8) 10/23/16 04:25 Lymph # 1.1 K/mm3 (1.2-5.4) L 10/23/16 04:25 [place] # 0.8 K/mm3 (0.0-0.8) 10/23/16 04:25 Eos # 0.1 K/mm3 (0.0-0.4) 10/23/16 04:25 Baso # 0.1 K/mm3 (0.0-0.1) 10/23/16 04:25 Seg Neutrophils % 69.7 % (40.0-70.0) 10/23/16 04:25 Seg Neutrophils # 4.9 K/mm3 (1.8-7.7) 10/23/16 04:25 Percent Retic 1.26 % (0.78-2.58) 10/21/16 20:08 Sodium 139 mmol/L (137-145) 10/23/16 04:25 Potassium 4.0 mmol/L (3.6-5.0) 10/23/16 04:25 Chloride 102.1 mmol/L (98-107) 10/23/16 04:25 Carbon Dioxide 23 mmol/L (22-30) 10/23/16 04:25 Anion Gap 18 mmol/L 10/23/16 04:25 BUN 13 mg/dL (9-20) 10/23/16 04:25 Creatinine 1.1 mg/dL (0.8-1.5) 10/23/16 04:25 Estimated GFR > 60 ml/min 10/23/16 04:25 BUN/Creatinine Ratio 11.81 % 10/23/16 04:25 Glucose 114 mg/dL (75-100) H 10/23/16 04:25 Calcium 8.5 mg/dL (8.4-10.2) 10/23/16 04:25 Iron 17 ug/dL (49-181) L 10/21/16 20:08 TIBC 276 mcg/dL (250-450) 10/21/16 20:08 % Saturation 2.98 % 10/20/16 13:06 Transferrin 288 mg/dl (180-329) 10/20/16 13:06 Ferritin 40.0 ng/mL (13.0-400.0) 10/21/16 20:08 Total Bilirubin 0.4 mg/dL (0.1-1.2) 10/20/16 13:06 AST 9 units/L (5-40) 10/20/16 13:06 ALT 7 units/L (7-56) 10/20/16 13:06 Alkaline Phosphatase 76 units/L (35-129) 10/20/16 13:06 Lactate Dehydrogenase 125 units/L (91-180) 10/21/16 20:08 Total Protein 7.6 g/dL (6.3-8.2) 10/20/16 13:06 Albumin 4.0 g/dL (3.9-5) 10/20/16 13:06 Albumin/Globulin Ratio 1.1 % 10/20/16 13:06 Lipase 19 units/L (13-60) 10/20/16 13:06 CA 19-9 Antigen 9 U/mL (<34) 10/21/16 10:15 Vitamin B12 471.6 pg/mL (211-911) 10/21/16 20:08 Folate 11.76 ng/mL (7.3-26.0) 10/21/16 20:08 TSH 1.870 mlU/mL (0.270-4.200) 10/21/16 10:15 Urine Color Yellow (Yellow) 10/20/16 16:05 Urine Turbidity Clear (Clear) 10/20/16 16:05 Urine pH 5.0 (5.0-7.0) 10/20/16 16:05 Ur Specific [place] 1.021 (1.003-1.030) 10/20/16 16:05 Urine Protein <15 mg/dl mg/dL (Negative) 10/20/16 16:05 Urine Glucose (UA) Neg mg/dL (Negative) 10/20/16 16:05 Urine Ketones Tr mg/dL (Negative) 10/20/16 16:05 Urine Blood Neg (Negative) 10/20/16 16:05 Urine Nitrite Neg (Negative) 10/20/16 16:05 Urine Bilirubin Neg (Negative) 10/20/16 16:05 Urine Urobilinogen < 2.0 mg/dL (<2.0) 10/20/16 16:05 Ur Leukocyte Esterase Tr (Negative) 10/20/16 16:05 Urine WBC (Auto) 3.0 /HPF (0.0-6.0) 10/20/16 16:05 Urine RBC (Auto) 3.0 /HPF (0.0-6.0) 10/20/16 16:05 U Epithel Cells (Auto) 1.0 /HPF (0-13.0) 10/20/16 16:05 Urine Mucus 1+ /HPF 10/20/16 16:05 Blood Type O POSITIVE 10/21/16 10:15 Antibody Screen Negative 10/21/16 10:15 Crossmatch See Detail 10/21/16 10:15
--- NOTE | 2016-10-23 10:24 | Operative Report ---
Operative Report Operative Report: Date of procedure: 10/23/2016 Preprocedure diagnosis: Suspected malignant mass on CT scan in the cecum Post procedure diagnosis: [Malignant-appearing circumferential, ulcerated mass in the cecum with partial obstruction. Large splenic flexure polyp, not removed. 1 cm descending colon polyp removed with snare and electrocautery.] Procedure: Colonoscopy to the cecum with biopsies of the cecal mass, tattooing of the splenic flexure lesion and snare polypectomy of the descending colon polyp. Endoscopist: Dr. Wallace Anesthesia: Monitored anesthesia care per anesthesia department Estimated blood loss: 0 Medications: Monitored anesthesia care. See separate report by anesthesia for details. After careful discussion of the nature and purpose of the procedure as well as details of the technique risks benefits and alternatives the patient gave consent. Please see recent history and physical from the office. The patient was placed in the left lateral decubitus position and medicated per anesthesia. A rectal exam was performed sphincter tone was normal there were no masses palpable. The [employer] 570 scope was passed transanally and advanced under continuous direct vision without difficulty to the cecum. The colon preparation was fair with there being some thick liquid stool requiring lavage. There was a large, ulcerated circumferential malignant appearing mass present in the cecum which appeared to be partially obstructing the lumen. Multiple biopsies were taken. The ascending colon was normal. The transverse colon was normal. There was a 3 cm friable-appearing polyp on a broad-based attachment in the splenic flexure. In view of this being a possible second malignant polyp was elected to leave this lesion in place given plans for right hemicolectomy tomorrow and tattooed just distal to the lesion. 3 separate tattoo places were formed circumferentially a few centimeters below the splenic flexure lesion.there was a 1 cm pedunculated polyp in the mid descending colon which was removed with snare and electrocautery and retrieved by suction. Sigmoid colon appeared normal. The rectum was normal on forward and retroflexed views. The procedure was well-tolerated overall and the patient was observed in recovery. Conclusions: 1. Large, circumferential ulcerated malignant-appearing mass in the cecum which appears to be partially obstructing. 2. 3 cm polyp in the splenic flexure which was ulcerated. The polyp area was tattooed but the polyp was not removed given plans for surgery tomorrow. 3. Descending colon polyp, removed. Plan: Extended right hemicolectomy is advised to include the splenic flexure. Await path. Signed electronically: Evan Wallace M.D.
--- NOTE | 2016-10-23 10:28 | Post Anesthesia Evaluation ---
- Post Anesthesia Evaluation Patient Participated: Yes Airway Patent: Yes Stable Respiratory Function: Yes Nausea/Vomiting: No Temp > 96.8F: Yes Pain Manageable: Yes Adequeate Hydration: Yes Anesthesia Complications: No Block Receding Appropriately: Not Applicable Patient on Ventilator: No
--- NOTE | 2016-10-23 10:29 | Anesthesia Day of Surgery ---
Anesthesia Day of Surgery - Day of Surgery Patient Examined: Yes Patient H&P Reviewed: Yes Patient is NPO: Yes
--- NOTE | 2016-10-23 10:31 | Anesthesia Consultation ---
Anesthesia Consult and Med Hx Date of service: 10/23/16 (colectomy 10/23/[address] Jorgensen) - Airway Anesthetic Teeth Evaluation: Poor ROM Head & Neck: Adequate Mental/Hyoid Distance: Adequate Mallampati Class: Class II Intubation Access Assessment: Probably Good - Pulmonary Exam CTA: Yes - Cardiac Exam Cardiac Exam: RRR - Pre-Operative Health Status ASA Pre-Surgery Classification: ASA3 Proposed Anesthetic Plan: General - Pulmonary Hx Smoking: Yes (2-3 cigs/week) Hx Asthma: No COPD: No Hx Pneumonia: No - Cardiovascular System Hx Hypertension: Yes Hx Peripheral Vascular Disease: Yes (AAA w/ chronic dissection, seen by Dr. Caballero , medical managment for now) - Endocrine Hx End Stage Renal Disease: No Hx Insulin Dependent Diabetes: No (borderline) Hx Thyroid Disease: No Hx Hypothyroidism: No - Hematic Hx Anemia: Yes (8.09/12) - Other Systems Hx Cancer: Yes (melanoma, basal cell, cecal mass with lympadenopthy) Hx Obesity: Yes (BMI 31.1) - Additional Comments Anesthesia Medical History Comments: CLEARED BY CARDIOLOGY, MODERATE RISK.
[2016-10-23] MEDS: NORMODYNE PO SCH ×2 (12:14→23:10)
--- NOTE | 2016-10-23 12:21 | Progress Note ---
Assessment and Plan - Patient Problems (1) Intestinal mass Current Visit: Yes Status: Acute Plan to address problem: Patient presented with abdominal pain and a cecal mass, undergoing GI endoscopy and workup. 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 This has been recommended for elective outpatient management by vascular surgery. There are no cardiac complaints, and cardiac status is stable. Due to his underlying vascular disease and multiple risk factors, he is at moderate risk if exploratory surgery is contemplated for his cecal mass. Patient and his family are comfortable with the anticipated cardiac risk if surgery becomes necessary. Subjective Date of service: 10/23/16 Principal diagnosis: Cecal mass Interval history: GI endoscopy is in progress today for further evaluation of cecal mass. No new cardiac complaints. Objective Vital Signs Temp Pulse Pulse Pulse Resp BP BP 10/23/16 10:48 60 11 L 137/51 10/23/16 10:39 98.6 F 65 16 173/65 10/23/16 10:35 98.6 F 65 16 173/65 10/23/16 10:33 64 12 131/43 10/23/16 10:18 98 F 56 L 12 138/39 10/23/16 08:00 60 10/23/16 07:00 98.1 F 63 18 161/73 10/23/16 05:47 98.0 F 57 L 20 157/68 10/23/16 00:00 98.1 F 59 L 20 138/62 10/22/16 20:00 98.3 F 58 L 20 178/77 10/22/16 17:00 97.6 F 58 L 18 174/81 10/22/16 16:00 98.1 F 10/22/16 14:00 55 L 17 143/44 Pulse Ox 10/23/16 10:48 99 10/23/16 10:39 97 10/23/16 10:35 97 10/23/16 10:33 99 10/23/16 10:18 100 10/23/16 08:00 10/23/16 07:00 96 10/23/16 05:47 98 10/23/16 00:00 97 10/22/16 20:00 99 10/22/16 17:00 97 10/22/16 16:00 10/22/16 14:00 100 - Physical Examination General: Appears Well, No Apparent Distress HEENT: Positive: PERRL Neck: Positive: neck supple Cardiac: Positive: Reg Rate and Rhythm Lungs: Positive: Decreased Breath Sounds Neuro: Positive: Grossly Intact Abdomen: Positive: Soft Skin: Positive: Clear Extremities: Absent: edema - Labs and Meds CBC 10/23/16 Range/Units 04:25 WBC 7.0 (4.5-11.0) K/mm3 RBC 4.05 (3.65-5.03) M/mm3 Hgb 8.2 L (11.8-15.2) gm/dl Hct 27.0 L (35.5-45.6) % Plt Count 295 (140-440) K/mm3 Lymph # 1.1 L (1.2-5.4) K/mm3 [place] # 0.8 (0.0-0.8) K/mm3 Eos # 0.1 (0.0-0.4) K/mm3 Baso # 0.1 (0.0-0.1) K/mm3 Comprehensive Metabolic Panel 10/23/16 Range/Units 04:25 Sodium 139 (137-145) mmol/L Potassium 4.0 (3.6-5.0) mmol/L Chloride 102.1 (98-107) mmol/L Carbon Dioxide 23 (22-30) mmol/L BUN 13 (9-20) mg/dL Creatinine 1.1 (0.8-1.5) mg/dL Glucose 114 H (75-100) mg/dL Calcium 8.5 (8.4-10.2) mg/dL
[2016-10-23] MEDS: PEPCID PO SCH (14:52)
--- NOTE | 2016-10-23 15:24 | Progress Note ---
Assessment and Plan - Patient Problems (1) Aortic dissection, abdominal Current Visit: Yes Status: Acute (2) Intestinal mass Current Visit: Yes Status: Acute (3) Iron deficiency anemia Current Visit: Yes Status: Acute Qualifiers: Iron deficiency anemia type: I (4) Discharge planning issues Current Visit: Yes Status: Acute Subjective Date of service: 10/23/16 Principal diagnosis: Cecal mass Interval history: Seen and examined at bedside; 24 hour events reviewed; nursing and respiratory care staff consulted; no adverse overnight events reported to me; Objective Vital Signs - 12hr 10/23/16 10/23/16 10/23/16 05:47 07:00 08:00 Temperature 98.0 F 98.1 F Pulse Rate 60 Pulse Rate [ Left Dorsalis Pedis] Pulse Rate [ 57 L 63 Left Radial] Respiratory 20 18 Rate Blood Pressure Blood Pressure 157/68 161/73 [Left Arm] O2 Sat by Pulse 98 96 Oximetry 10/23/16 10/23/16 10/23/16 10:18 10:33 10:35 Temperature 98 F 98.6 F Pulse Rate 56 L 64 65 Pulse Rate [ Left Dorsalis Pedis] Pulse Rate [ Left Radial] Respiratory 12 12 16 Rate Blood Pressure 138/39 131/43 173/65 Blood Pressure [Left Arm] O2 Sat by Pulse 100 99 97 Oximetry 10/23/16 10/23/16 10/23/16 10:39 10:48 12:00 Temperature 98.6 F 98.7 F Pulse Rate 65 60 Pulse Rate [ 64 Left Dorsalis Pedis] Pulse Rate [ Left Radial] Respiratory 16 11 L 18 Rate Blood Pressure 173/65 137/51 Blood Pressure 156/68 [Left Arm] O2 Sat by Pulse 97 99 98 Oximetry Constitutional: no acute distress, alert Eyes: non-icteric ENT: oropharynx moist Neck: supple, no lymphadenopathy Effort: normal Ascultation: Bilateral: clear Cardiovascular: regular rate and rhythm Gastrointestinal: normoactive bowel sounds, soft, non-tender, non-distended Integumentary: normal Extremities: no cyanosis, no edema, pink and warm, pulses normal, no ischemia or petechiae Neurologic: normal mental status, non-focal exam, pupils equal and round, motor strength normal and Psychiatric: mood appropriate, affect normal CBC and BMP: 10/23/16 04:25 10/23/16 04:25 Abnormal lab findings: Abnormal Labs 10/21/16 10/21/16 10/21/16 04:17 04:17 10:15 Hgb 7.5 L Hct 26.6 L MCV 65 L MCH 20 L MCHC 30 L RDW 17.2 H [place] % (Auto) 10.3 H Lymph # 1.1 L [place] # Seg Neutrophils % 74.0 H BUN 23 H Glucose 128 H Calcium 8.3 L Iron Crossmatch See Detail 10/21/16 10/22/16 10/22/16 20:08 04:29 04:29 Hgb 8.1 L Hct 26.6 L MCV 67 L MCH 20 L MCHC 31 L RDW 18.0 H [place] % (Auto) 11.0 H Lymph # [place] # 0.9 H Seg Neutrophils % 71.6 H BUN Glucose 111 H Calcium Iron 17 L Crossmatch 10/23/16 10/23/16 04:25 04:25 Hgb 8.2 L Hct 27.0 L MCV 67 L MCH 20 L MCHC 30 L RDW 18.6 H [place] % (Auto) 11.2 H Lymph # 1.1 L [place] # Seg Neutrophils % BUN Glucose 114 H Calcium Iron Crossmatch
[2016-10-23] MEDS ORDERED: ERYTHROMYCIN LACTOBIONATE IV SCH (20:00)
[2016-10-23] MEDS ORDERED: NACL 0.9% IV SCH (20:00)
[2016-10-23] MEDS ORDERED: ZITHROMAX 1,000 MG in NACL 0.9% 250ML 250 ML IV SCH (20:00)
[2016-10-23] MEDS: ERY-TAB PO SCH (23:10)
[2016-10-23] MEDS: NEOMYCIN PO SCH (23:11)
[2016-10-24] MEDS: ERY-TAB PO SCH ×2 (05:30)
[2016-10-24] MEDS: NEOMYCIN PO SCH ×2 (05:30)
[2016-10-24 05:47] LABS: Basophils % (Auto) 1.2 % (0.0-1.8); Eosinophils % (Auto) 1.5 % (0.0-4.3); Mean Corpuscular HGB Conc 30 % (32-34); Platelet Count 370 K/mm3 (140-440); Red Blood Count 4.63 M/mm3 (3.65-5.03); Red Cell Distribution Width 18.8 % (13.2-15.2); White Blood Count 8.9 K/mm3 (4.5-11.0)
[2016-10-24] MEDS ORDERED: NACL 0.9% 1000 ML 1,000 ML IV SCH (06:00)
[2016-10-24] MEDS ORDERED: VERSED IV NR (06:00)
[2016-10-24] MEDS ORDERED: PEPCID IV NR (06:00)
[2016-10-24 06:06] LABS: Hematocrit 31.2 % (35.5-45.6); Hemoglobin 9.3 gm/dl (11.8-15.2); Mean Corpuscular Hemoglobin 20 pg (28-32); Mean Corpuscular Volume 67 fl (84-94)
[2016-10-24 06:25] LABS: BUN/Creatinine Ratio 9.23; Calcium 9.5 mg/dL (8.4-10.2); Chloride 100.6 mmol/L (98-107); Potassium 4.6 mmol/L (3.6-5.0)
--- NOTE | 2016-10-24 08:46 | Gastroenterology Progress Note ---
Assessment and Plan - Patient Problems (1) Mass of cecum Current Visit: Yes Status: Acute Plan to address problem: Surgery is planned today. I discussed findings with Dr. Jorgensen yesterday. Advised to lengthen the colectomy in view of a large splenic flexure polyp which was tattooed but not removed (2) Aortic dissection, abdominal Current Visit: Yes Status: Acute (3) Iron deficiency anemia Current Visit: Yes Status: Acute Qualifiers: Iron deficiency anemia type: I (4) Pseudoaneurysm of aorta Current Visit: Yes Status: Acute Subjective Date of service: 10/24/16 Principal diagnosis: Cecal mass Interval history: The patient reports feeling well, ready for surgery Objective - Constitutional Vitals: Temp Pulse Resp BP Pulse Ox 97.7 F 53 L 20 130/58 97 10/24/16 04:00 10/24/16 04:00 10/24/16 04:00 10/24/16 04:00 10/24/16 04:00 General appearance: no acute distress - Neck Neck: supple, normal ROM - Respiratory Respiratory effort: normal Respiratory: bilateral: CTA - Cardiovascular Rhythm: regular - Gastrointestinal General gastrointestinal: Present: soft, non-tender, non-distended, normal bowel sounds - Neurologic Neurological: alert and oriented x3 - Labs CBC & Chem 7: 10/24/16 05:11 10/24/16 05:11 Labs: Laboratory Results - last 24 hr 10/23/16 10/24/16 10/24/16 17:08 05:10 05:11 WBC 8.9 RBC 4.63 Hgb 9.3 L Hct 31.2 L MCV 67 L MCH 20 L MCHC 30 L RDW 18.8 H Plt Count 370 Lymph % (Auto) 12.9 L [place] % (Auto) 10.8 H Eos % (Auto) 1.5 Baso % (Auto) 1.2 Lymph # 1.1 L [place] # 1.0 H Eos # 0.1 Baso # 0.1 Seg Neutrophils % 73.6 H Seg Neutrophils # 6.5 Sodium Potassium Chloride Carbon Dioxide Anion Gap BUN Creatinine Estimated GFR BUN/Creatinine Ratio Glucose POC Glucose 119 H Calcium Blood Type O POSITIVE Antibody Screen Negative 10/24/16 05:11 WBC RBC Hgb Hct MCV MCH MCHC RDW Plt Count Lymph % (Auto) [place] % (Auto) Eos % (Auto) Baso % (Auto) Lymph # [place] # Eos # Baso # Seg Neutrophils % Seg Neutrophils # Sodium 140 Potassium 4.6 Chloride 100.6 Carbon Dioxide 23 Anion Gap 21 BUN 12 Creatinine 1.3 Estimated GFR 56 BUN/Creatinine Ratio 9.23 Glucose 145 H POC Glucose Calcium 9.5 Blood Type Antibody Screen
--- NOTE | 2016-10-24 09:11 | Hem/Onc Progress Note ---
Assessment and Plan Patient has a large right colon mass in the area of the cecum. colonoscopy findings noted. surgery awaited. cea pending ca 199 nl. d/w pt and mom Subjective Date of service: 10/24/16 Interval history: pt feels fair. c/o diarrhea Objective - Constitutional Vitals: Last Vital Signs Temp 97.7 F 10/24/16 04:00 Pulse 53 L 10/24/16 04:00 Resp 20 10/24/16 04:00 BP 130/58 10/24/16 04:00 Pulse Ox 97 10/24/16 04:00 General appearance: no acute distress - Neck Neck: supple - Respiratory Respiratory effort: Positive: normal - Cardiovascular Rhythm: regular Extremities: No edema - Gastrointestinal General gastrointestinal: Present: soft - Labs Lab Results: Laboratory Results - last 24 hr 10/23/16 10/24/16 10/24/16 17:08 05:10 05:11 WBC 8.9 RBC 4.63 Hgb 9.3 L Hct 31.2 L MCV 67 L MCH 20 L MCHC 30 L RDW 18.8 H Plt Count 370 Lymph % (Auto) 12.9 L [place] % (Auto) 10.8 H Eos % (Auto) 1.5 Baso % (Auto) 1.2 Lymph # 1.1 L [place] # 1.0 H Eos # 0.1 Baso # 0.1 Seg Neutrophils % 73.6 H Seg Neutrophils # 6.5 Sodium Potassium Chloride Carbon Dioxide Anion Gap BUN Creatinine Estimated GFR BUN/Creatinine Ratio Glucose POC Glucose 119 H Calcium Blood Type O POSITIVE Antibody Screen Negative 10/24/16 05:11 WBC RBC Hgb Hct MCV MCH MCHC RDW Plt Count Lymph % (Auto) [place] % (Auto) Eos % (Auto) Baso % (Auto) Lymph # [place] # Eos # Baso # Seg Neutrophils % Seg Neutrophils # Sodium 140 Potassium 4.6 Chloride 100.6 Carbon Dioxide 23 Anion Gap 21 BUN 12 Creatinine 1.3 Estimated GFR 56 BUN/Creatinine Ratio 9.23 Glucose 145 H POC Glucose Calcium 9.5 Blood Type Antibody Screen
--- NOTE | 2016-10-24 10:00 | Progress Note ---
Assessment and Plan Assessment and plan: 1. Large right colon mass in the area of the cecum. Patient to undergo hemicolectomy with Dr. Jorgensen. 2. Anemia. Etiology is most likely acute blood loss anemia. Patient status post transfusion. H&H stable. 3. Infrarenal abdominal aortic aneurysm. Vascular surgery following. 4. Accelerated Hypertension. Increase labetalol to 400 mg twice a day. Continue hydralazine when necessary. 5. History of basal cell cancer and melanoma. 6. DVT prophylaxis. SCDs only given the anemia. History Interval history: 61-year-old man with a history of basal cell cancer, melanoma, hypertension comes emergency room with complaining of right lower quadrant pain since [place]. On his CT scan, he was found to have a large right lower quadrant mass about 8 x 9 x 12 cm and evidence of lymphadenopathy and mesenteric lesions. He also was found to have a questionable mass in the head of the pancreas and infrarenal abdominal aortic aneurysm. EGD confirmed a malignant cecal mass. Patient scheduled for hemicolectomy this morning. Hospitalist Physical - Constitutional Vitals: Temp Pulse Resp BP Pulse Ox 97.7 F 53 L 20 130/58 97 10/24/16 04:00 10/24/16 04:00 10/24/16 04:00 10/24/16 04:00 10/24/16 04:00 General appearance: Present: no acute distress - EENT Eyes: Present: PERRL, EOM intact ENT: hearing intact, clear oral mucosa, dentition normal - Neck Neck: Present: supple, normal ROM - Respiratory Respiratory effort: normal Respiratory: bilateral: CTA - Cardiovascular Rhythm: regular Heart Sounds: Present: S1 & S2. Absent: gallop, rub - Extremities Extremities: no ischemia, No edema, Full ROM - Abdominal General gastrointestinal: soft, non-tender, non-distended, normal bowel sounds - Integumentary Integumentary: Present: clear, warm, dry - Neurologic Neurologic: CNII-XII intact, moves all extremities Results - Labs CBC & Chem 7: 10/24/16 05:11 10/24/16 05:11 Labs: Laboratory Last Values WBC 8.9 K/mm3 (4.5-11.0) 10/24/16 05:11 RBC 4.63 M/mm3 (3.65-5.03) 10/24/16 05:11 Hgb 9.3 gm/dl (11.8-15.2) L 10/24/16 05:11 Hct 31.2 % (35.5-45.6) L 10/24/16 05:11 MCV 67 fl (84-94) L 10/24/16 05:11 MCH 20 pg (28-32) L 10/24/16 05:11 MCHC 30 % (32-34) L 10/24/16 05:11 RDW 18.8 % (13.2-15.2) H 10/24/16 05:11 Plt Count 370 K/mm3 (140-440) 10/24/16 05:11 Lymph % (Auto) 12.9 % (13.4-35.0) L 10/24/16 05:11 [place] % (Auto) 10.8 % (0.0-7.3) H 10/24/16 05:11 Eos % (Auto) 1.5 % (0.0-4.3) 10/24/16 05:11 Baso % (Auto) 1.2 % (0.0-1.8) 10/24/16 05:11 Lymph # 1.1 K/mm3 (1.2-5.4) L 10/24/16 05:11 [place] # 1.0 K/mm3 (0.0-0.8) H 10/24/16 05:11 Eos # 0.1 K/mm3 (0.0-0.4) 10/24/16 05:11 Baso # 0.1 K/mm3 (0.0-0.1) 10/24/16 05:11 Seg Neutrophils % 73.6 % (40.0-70.0) H 10/24/16 05:11 Seg Neutrophils # 6.5 K/mm3 (1.8-7.7) 10/24/16 05:11 Percent [place] 1.26 % (0.78-2.58) 10/21/16 20:08 Sodium 140 mmol/L (137-145) 10/24/16 05:11 Potassium 4.6 mmol/L (3.6-5.0) 10/24/16 05:11 Chloride 100.6 mmol/L (98-107) 10/24/16 05:11 Carbon Dioxide 23 mmol/L (22-30) 10/24/16 05:11 Anion Gap 21 mmol/L 10/24/16 05:11 BUN 12 mg/dL (9-20) 10/24/16 05:11 Creatinine 1.3 mg/dL (0.8-1.5) 10/24/16 05:11 Estimated GFR 56 ml/min 10/24/16 05:11 BUN/Creatinine Ratio 9.23 % 10/24/16 05:11 Glucose 145 mg/dL (75-100) H 10/24/16 05:11 POC Glucose 119 (70-105) H 10/23/16 17:08 Calcium 9.5 mg/dL (8.4-10.2) 10/24/16 05:11 Iron 17 ug/dL (49-181) L 10/21/16 20:08 TIBC 276 mcg/dL (250-450) 10/21/16 20:08 % Saturation 2.98 % 10/20/16 13:06 Transferrin 288 mg/dl (180-329) 10/20/16 13:06 Ferritin 40.0 ng/mL (13.0-400.0) 10/21/16 20:08 Total Bilirubin 0.4 mg/dL (0.1-1.2) 10/20/16 13:06 AST 9 units/L (5-40) 10/20/16 13:06 ALT 7 units/L (7-56) 10/20/16 13:06 Alkaline Phosphatase 76 units/L (35-129) 10/20/16 13:06 Lactate Dehydrogenase 125 units/L (91-180) 10/21/16 20:08 Total Protein 7.6 g/dL (6.3-8.2) 10/20/16 13:06 Albumin 4.0 g/dL (3.9-5) 10/20/16 13:06 Albumin/Globulin Ratio 1.1 % 10/20/16 13:06 Lipase 19 units/L (13-60) 10/20/16 13:06 CA 19-9 Antigen 9 U/mL (<34) 10/21/16 10:15 Vitamin B12 471.6 pg/mL (211-911) 10/21/16 20:08 Folate 11.76 ng/mL (7.3-26.0) 10/21/16 20:08 TSH 1.870 mlU/mL (0.270-4.200) 10/21/16 10:15 Urine Color Yellow (Yellow) 10/20/16 16:05 Urine Turbidity Clear (Clear) 10/20/16 16:05 Urine pH 5.0 (5.0-7.0) 10/20/16 16:05 Ur Specific [place] 1.021 (1.003-1.030) 10/20/16 16:05 Urine Protein <15 mg/dl mg/dL (Negative) 10/20/16 16:05 Urine Glucose (UA) Neg mg/dL (Negative) 10/20/16 16:05 Urine Ketones Tr mg/dL (Negative) 10/20/16 16:05 Urine Blood Neg (Negative) 10/20/16 16:05 Urine Nitrite Neg (Negative) 10/20/16 16:05 Urine Bilirubin Neg (Negative) 10/20/16 16:05 Urine Urobilinogen < 2.0 mg/dL (<2.0) 10/20/16 16:05 Ur Leukocyte Esterase Tr (Negative) 10/20/16 16:05 Urine WBC (Auto) 3.0 /HPF (0.0-6.0) 10/20/16 16:05 Urine RBC (Auto) 3.0 /HPF (0.0-6.0) 10/20/16 16:05 U Epithel Cells (Auto) 1.0 /HPF (0-13.0) 10/20/16 16:05 Urine Mucus 1+ /HPF 10/20/16 16:05 Blood Type O POSITIVE 10/24/16 05:10 Antibody Screen Negative 10/24/16 05:10 Crossmatch See Detail 10/21/16 10:15
--- NOTE | 2016-10-24 10:42 | Progress Note ---
Assessment and Plan Intestinal mass Anemia Hypertension Recommend: Due to his underlying vascular disease and multiple risk factors, he is at moderate risk if exploratory surgery for his cecal mass. Patient and his family are comfortable with the anticipated cardiac risk if surgery. Subjective Date of service: 10/24/16 Principal diagnosis: Cecal mass Interval history: Patient has no complaints. Awaits hemicolectomy surgery today. Objective Vital Signs Temp Pulse Pulse Pulse Pulse Resp BP 10/24/16 08:35 97.8 F 58 L 20 10/24/16 04:00 97.7 F 53 L 20 10/24/16 00:20 97.9 F 60 20 10/23/16 20:01 98.3 F 62 20 10/23/16 16:00 98.4 F 63 18 10/23/16 12:00 98.7 F 64 18 10/23/16 10:48 60 11 L 137/51 BP Pulse Ox 10/24/16 08:35 124/60 98 10/24/16 04:00 130/58 97 10/24/16 00:20 125/57 98 10/23/16 20:01 174/74 98 10/23/16 16:00 158/68 99 10/23/16 12:00 156/68 98 10/23/16 10:48 99 - Physical Examination General: Appears Well, No Apparent Distress HEENT: Positive: PERRL Neck: Positive: neck supple Cardiac: Positive: Reg Rate and Rhythm Neuro: Positive: Grossly Intact Extremities: Absent: edema - Labs and Meds CBC 10/24/16 Range/Units 05:11 WBC 8.9 (4.5-11.0) K/mm3 RBC 4.63 (3.65-5.03) M/mm3 Hgb 9.3 L (11.8-15.2) gm/dl Hct 31.2 L (35.5-45.6) % Plt Count 370 (140-440) K/mm3 Lymph # 1.1 L (1.2-5.4) K/mm3 [place] # 1.0 H (0.0-0.8) K/mm3 Eos # 0.1 (0.0-0.4) K/mm3 Baso # 0.1 (0.0-0.1) K/mm3 Comprehensive Metabolic Panel 10/24/16 Range/Units 05:11 Sodium 140 (137-145) mmol/L Potassium 4.6 (3.6-5.0) mmol/L Chloride 100.6 (98-107) mmol/L Carbon Dioxide 23 (22-30) mmol/L BUN 12 (9-20) mg/dL Creatinine 1.3 (0.8-1.5) mg/dL Glucose 145 H (75-100) mg/dL Calcium 9.5 (8.4-10.2) mg/dL
--- NOTE | 2016-10-24 10:55 | Anesthesia Day of Surgery ---
Anesthesia Day of Surgery - Day of Surgery Patient Examined: Yes Patient H&P Reviewed: Yes Patient is NPO: Yes Beta Blockers: Yes Cardiac Clearance: Yes Pulmonary Clearance: Yes
--- NOTE | 2016-10-24 10:57 | Anesthesia Consultation ---
Anesthesia Consult and Med Hx Date of service: 10/24/16 - Airway Anesthetic Teeth Evaluation: Poor (only small brown nubs/shards of teeth) ROM Head & Neck: Adequate Mental/Hyoid Distance: Adequate Mallampati Class: Class II Intubation Access Assessment: Probably Good - Pulmonary Exam CTA: Yes (blbs clear) - Cardiac Exam Cardiac Exam: RRR - Pre-Operative Health Status ASA Pre-Surgery Classification: ASA4 Proposed Anesthetic Plan: General - Pulmonary Hx Smoking: Yes Hx Asthma: No COPD: Yes (probable) Hx Pneumonia: No - Cardiovascular System Hx Hypertension: Yes Hx Peripheral Vascular Disease: Yes (AAA w/ chronic dissection, seen by Dr. Caballero , medical managment for now) - Endocrine Hx End Stage Renal Disease: No Hx Insulin Dependent Diabetes: No (borderline) Hx Thyroid Disease: No Hx Hypothyroidism: No - Hematic Hx Anemia: Yes (8.09/12) - Other Systems Hx Cancer: Yes (melanoma, basal cell, cecal mass with lympadenopthy) Hx Obesity: Yes (BMI 31.1) - Additional Comments Anesthesia Medical History Comments: CLEARED BY CARDIOLOGY, MODERATE RISK.
[2016-10-24] MEDS ORDERED: ZEMURON IV ONE (10:58)
[2016-10-24] MEDS ORDERED: XYLOCAINE MPF 2% ONE (10:58)
[2016-10-24] MEDS ORDERED: DIPRIVAN 10 MG/ML IV ONE (10:59)
[2016-10-24] MEDS: PEPCID PO SCH (11:51)
[2016-10-24] MEDS ORDERED: ANCEF/STERILE WATER 2 GM/20 ML IV NR (12:00)
[2016-10-24] MEDS ORDERED: FLAGYL 500 MG/100 ML 500 MG/100 ML BAG IV NR (12:00)
[2016-10-24] MEDS ORDERED: SUBLIMAZE IV PRN (12:00)
[2016-10-24] MEDS ORDERED: NACL 0.9% 500 ML 500 ML IV ONE (12:00)
[2016-10-24] MEDS ORDERED: TRANSDERM-SCOP TD ONE (12:00)
[2016-10-24] MEDS ORDERED: ePHEDrine SULFATE ONE (12:15)
[2016-10-24] MEDS ORDERED: DECADRON ONE (12:48)
[2016-10-24] MEDS ORDERED: NACL 0.9% IR ONE (12:57)
[2016-10-24] MEDS ORDERED: ZOFRAN ONE (13:13)
[2016-10-24] MEDS ORDERED: SUBLIMAZE ONE (13:29)
[2016-10-24] MEDS ORDERED: NEOSTIGMINE ONE (13:33)
[2016-10-24] MEDS ORDERED: ROBINUL ONE (13:33)
[2016-10-24] MEDS ORDERED: DILAUDID ONE (13:51)
--- NOTE | 2016-10-24 14:39 | Operative Report ---
Operative Report Operative Report: Date of operation: 10/24/2016. 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 Postoperative diagnosis: #1. Extensive cecal carcinoma. #2. Transverse colon polyp. #3. Mesenteric peritoneal seedings. Operation: #1. Exploratory laparotomy. #2. Right hemicolectomy with lower right gutter peritoniectomy. #3. Omentectomy. #4. Excision of perirectal tinea colli with peritoneal seeding. Surgeon: Zeke Jorgensen M.D. Asst.: Raheel Mosquera M.D. Findings: 61 years old male admitted to the hospital with lower abdominal pain. CT scan of the abdomen he was found to have a large cecal mass with pericecal adenopathy. Patient was also found to have dissected infrarenal aortic aneurysm. Because the aneurysm was stable left breast surgery service recommended to go ahead and performed a colectomy and then they would take care of the aneurysm at a later date. On colonoscopy the patient was found to have a polyp in the transverse colon which was tattooed for identification during surgery. At operation we found large cecal mass with pericecal lymphadenopathy and involvement of the lower right abdominal wall. Patient also had some peritoneal seedings especially down in the cul-de-sac. The tattoo from the colonoscopy was identified in the proximal transverse colon. The liver surface was smooth and there was no evidence of disease in the liver. Procedure: Under general anesthesia a Dorsey catheter was put in place. The patient was prepped and draped in the usual sterile manner. A midline incision from above the umbilicus to below the umbilicus was performed with a #10 blade. Dissection carried down through the subcutaneous tissue with the electrocautery. The fascia was divided in the midline. The cavity was entered. The mass in the cecum was identified. We started dissection of the right gutter to take some of the peritoneum in the gallbladder together with some preperitoneal fat to be able to remove the mass in toto. There was some spillage from the cecum and this was immediately controlled. We continued dissection on the daughter towards the hepatic 40 inches from the ileocecal valve. Flexure which was also taken down. Then the ileum was divided with a THOR about 4 inches from the ileocecal valve. The mesentery of the colon and the distal ileum was taken down using the LigaSure. This was done all the way up to the proximal transverse colon. The duodenum was identified and kept from harm's way. Then the gastrocolic ligament to the proximal transverse colon was taken down also with the LigaSure. The colon was then divided at the level of the proximal transverse colon with a THOR also. The middle colic artery and veins were taken down and ligated with double ligature of 0 Vicryl. After this was done we noticed some seedings in the posterior leaf of the omentum so we also did an omentectomy using the LigaSure. Then we went ahead and performed a side to side ileocolic anastomosis using the THOR and a TA 60. After this was done the mesentery was approximated with [id number] stitches of 3-0 Vicryl. Then the lap packs that had been put in the right gutter were removed. The liver surface was palpated with findings as stated above. Then in the pelvis we encountered the seedings also as stated above. There was associated at the tip of a tinea coli that was removed by dividing the tinea colli with the LigaSure. 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 We went ahead and changed gloves and irrigated abdominal cavity with copious amounts of normal saline solution. The NG tube was in place in the stomach. Then preparation was were made for closure. The fascia was approximated with multiple interrupted stitches of #1 Vicryl. Subcutaneous tissue was irrigated with normal saline solution and the skin edges were approximated with skin vijay leaving spaces to put Telfa bari soaked in Betadine. The patient was then awakened, extubated and transferred to the recovery room in stable condition. Estimated blood loss: 150 mL. Intravenous fluid replacement: Crystalloids. Complications: None. Specimens: #1. Right hemicolon. #2. Omentum. #3. Tinea colli with tumor seeding.
[2016-10-24] MEDS: DILAUDID IV PRN ×2 (14:40→14:50)
[2016-10-24] MEDS: APRESOLINE IV PRN (15:43)
--- NOTE | 2016-10-24 16:22 | Post Anesthesia Evaluation ---
- Post Anesthesia Evaluation Patient Participated: Yes Airway Patent: Yes Stable Respiratory Function: Yes Temp > 96.8F: Yes Pain Manageable: Yes Adequeate Hydration: Yes Anesthesia Complications: No Block Receding Appropriately: Not Applicable
[2016-10-24] MEDS ORDERED: LACTATED RINGERS 1,000 ML ONE (16:34)
[2016-10-24] MEDS: NORMODYNE PO SCH ×2 (17:45→22:00)
--- NOTE | 2016-10-24 19:00 | Progress Note ---
Assessment and Plan Patient alert, awake. Complaining pain at incision site.Patient undergone exploratory laparotomy and resection of intestinal mass. No acute respiratory distress.Patient is on 2 litres O2. O2 satuaration 96%. - Patient Problems (1) Intestinal mass Current Visit: Yes Status: Acute Plan to address problem: Exploratory laparotomy and resection of intestinal mass. Recommend incentive spirometry. Recommend DVT prophylaxis. Chest xray and ABGs tomorrow. (2) Aortic dissection, abdominal Current Visit: Yes Status: Acute Plan to address problem: Recommend to consult vascular surgery. Subjective Date of service: 10/24/16 Principal diagnosis: Cecal mass Interval history: Patient alert, awake. Complaining pain at incision site.Patient undergone exploratory laparotomy and resection of intestinal mass. No acute respiratory distress.Patient is on 2 litres O2. O2 satuaration 96%. Objective Vital Signs - 12hr 10/24/16 10/24/16 10/24/16 08:35 10:00 11:10 Temperature 97.8 F 98.7 F Pulse Rate 68 60 Pulse Rate [ 58 L Right Radial] Respiratory 20 20 Rate Blood Pressure 140/67 Blood Pressure 124/60 [Left Arm] O2 Sat by Pulse 98 97 Oximetry 10/24/16 10/24/16 10/24/16 11:55 14:22 14:25 Temperature 98.7 F 97.6 F Pulse Rate 60 70 66 Pulse Rate [ Right Radial] Respiratory 20 10 L 12 Rate Blood Pressure 140/67 187/73 184/72 Blood Pressure [Left Arm] O2 Sat by Pulse 97 100 100 Oximetry 10/24/16 10/24/16 10/24/16 14:30 14:35 14:40 Temperature Pulse Rate 74 76 73 Pulse Rate [ Right Radial] Respiratory 15 15 15 Rate Blood Pressure 171/66 160/51 175/71 Blood Pressure [Left Arm] O2 Sat by Pulse 100 97 97 Oximetry 10/24/16 10/24/16 10/24/16 14:50 15:00 15:15 Temperature Pulse Rate 71 72 74 Pulse Rate [ Right Radial] Respiratory 15 14 14 Rate Blood Pressure 156/61 160/64 164/65 Blood Pressure [Left Arm] O2 Sat by Pulse 97 97 96 Oximetry 10/24/16 10/24/16 10/24/16 15:20 15:30 15:43 Temperature Pulse Rate 73 75 Pulse Rate [ Right Radial] Respiratory 12 14 Rate Blood Pressure 167/73 167/63 Blood Pressure [Left Arm] O2 Sat by Pulse 97 Oximetry 10/24/16 10/24/16 10/24/16 15:45 16:00 16:20 Temperature 97.8 F Pulse Rate 76 78 Pulse Rate [ Right Radial] Respiratory 12 12 12 Rate Blood Pressure 170/65 161/65 Blood Pressure [Left Arm] O2 Sat by Pulse 96 95 Oximetry 10/24/16 10/24/16 16:45 16:54 Temperature Pulse Rate 82 Pulse Rate [ Right Radial] Respiratory 12 15 Rate Blood Pressure 163/77 Blood Pressure [Left Arm] O2 Sat by Pulse 96 Oximetry Constitutional: no acute distress, alert Eyes: non-icteric ENT: oropharynx moist Neck: supple, no lymphadenopathy Effort: normal Ascultation: Bilateral: diminished breath sounds Cardiovascular: regular rate and rhythm Gastrointestinal: hypoactive bowel sounds, tender, non-distended, other ( Tenderness at the incision site.) Integumentary: normal Extremities: no cyanosis, no edema, pink and warm, pulses normal, no ischemia or petechiae Neurologic: normal mental status, non-focal exam, pupils equal and round, motor strength normal and Psychiatric: mood appropriate, affect normal CBC and BMP: 10/24/16 05:11 10/24/16 05:11 Abnormal lab findings: Abnormal Labs 10/21/16 10/21/16 10/21/16 04:17 04:17 10:15 Hgb 7.5 L Hct 26.6 L MCV 65 L MCH 20 L MCHC 30 L RDW 17.2 H Lymph % (Auto) Door % (Auto) 10.3 H Lymph # 1.1 L Door # Seg Neutrophils % 74.0 H BUN 23 H Glucose 128 H POC Glucose Calcium 8.3 L Iron Crossmatch See Detail 10/21/16 10/22/16 10/22/16 20:08 04:29 04:29 Hgb 8.1 L Hct 26.6 L MCV 67 L MCH 20 L MCHC 31 L RDW 18.0 H Lymph % (Auto) Door % (Auto) 11.0 H Lymph # Door # 0.9 H Seg Neutrophils % 71.6 H BUN Glucose 111 H POC Glucose Calcium Iron 17 L Crossmatch 10/23/16 10/23/16 10/23/16 04:25 04:25 17:08 Hgb 8.2 L Hct 27.0 L MCV 67 L MCH 20 L MCHC 30 L RDW 18.6 H Lymph % (Auto) Door % (Auto) 11.2 H Lymph # 1.1 L Door # Seg Neutrophils % BUN Glucose 114 H POC Glucose 119 H Calcium Iron Crossmatch 10/24/16 10/24/16 10/24/16 05:10 05:11 05:11 Hgb 9.3 L Hct 31.2 L MCV 67 L MCH 20 L MCHC 30 L RDW 18.8 H Lymph % (Auto) 12.9 L Door % (Auto) 10.8 H Lymph # 1.1 L Door # 1.0 H Seg Neutrophils % 73.6 H BUN Glucose 145 H POC Glucose Calcium Iron Crossmatch See Detail
[2016-10-24] MEDS: MORPHINE IV PRN (20:02)
[2016-10-24] MEDS: ZOFRAN IV PRN (20:03)
[2016-10-25] MEDS: MORPHINE IV PRN ×2 (00:34→18:25)
[2016-10-25] MEDS: ZOFRAN IV PRN (00:34)
[2016-10-25] MEDS: LACTATED RINGERS 1,000 ML IV SCH (04:35)
[2016-10-25 05:52] LABS: BUN/Creatinine Ratio 11.42; Calcium 8.7 mg/dL (8.4-10.2); Chloride 103.3 mmol/L (98-107); Potassium 4.7 mmol/L (3.6-5.0)
[2016-10-25 06:17] LABS: Mean Corpuscular HGB Conc 30 % (32-34); Mean Corpuscular Volume 71 fl (84-94); Platelet Count 350 K/mm3 (140-440); Red Blood Count 4.95 M/mm3 (3.65-5.03); White Blood Count 17.5 K/mm3 (4.5-11.0)
[2016-10-25 06:26] LABS: Hematocrit 35.1 % (35.5-45.6); Hemoglobin 10.6 gm/dl (11.8-15.2)
[2016-10-25 06:27] LABS: Mean Corpuscular Hemoglobin 21 pg (28-32); Red Cell Distribution Width 21.9 % (13.2-15.2)
--- NOTE | 2016-10-25 08:12 | XRay Report ---
AP CHEST: HISTORY: Respiratory failure AP view of the chest demonstrates a normal mediastinal and cardiac contour with clear lungs and normal bony and soft tissue structures. IMPRESSION: Unremarkable AP chest.
[2016-10-25 08:48] LABS: Blastocytes % (Manual) 0 %
[2016-10-25 08:49] LABS: Anisocytosis 1+; Basophils % (Manual) 0 % (0.0-1.8); Eosinophils % (Manual) 0 % (0.0-4.3); Hypochromasia 2+
[2016-10-25 08:50] LABS: Diff Status Complete; Ovalocytes Few; Polychromasia Rare
--- NOTE | 2016-10-25 09:45 | Progress Note ---
Assessment and Plan Cecal mass s/p right hemicolectomy Anemia Hypertension Postoperative ECG pending. Subjective Date of service: 10/25/16 Principal diagnosis: Cecal mass Interval history: Patient denies chest pain and shortness of breath. Objective Vital Signs Temp Pulse Pulse Pulse Resp BP BP 10/25/16 05:22 98.1 F 72 18 141/67 10/25/16 00:50 98.0 F 72 20 142/64 10/24/16 22:00 78 78 76 10/24/16 20:40 97.9 F 76 18 139/65 10/24/16 20:00 10/24/16 17:15 97.8 F 92 H 20 173/74 10/24/16 16:54 15 10/24/16 16:45 82 12 163/77 10/24/16 16:20 12 10/24/16 16:00 97.8 F 78 12 161/65 10/24/16 15:45 76 12 170/65 10/24/16 15:43 75 167/63 10/24/16 15:30 73 14 167/73 10/24/16 15:20 12 10/24/16 15:15 74 14 164/65 10/24/16 15:00 72 14 160/64 10/24/16 14:50 71 15 156/61 10/24/16 14:40 73 15 175/71 10/24/16 14:35 76 15 160/51 10/24/16 14:30 74 15 171/66 10/24/16 14:25 66 12 184/72 10/24/16 14:22 97.6 F 70 10 L 187/73 10/24/16 11:55 98.7 F 60 20 140/67 10/24/16 11:10 98.7 F 60 20 140/67 10/24/16 10:00 68 Pulse Ox 10/25/16 05:22 96 10/25/16 00:50 96 10/24/16 22:00 10/24/16 20:40 96 10/24/16 20:00 96 10/24/16 17:15 98 10/24/16 16:54 10/24/16 16:45 96 10/24/16 16:20 10/24/16 16:00 95 10/24/16 15:45 96 10/24/16 15:43 10/24/16 15:30 97 10/24/16 15:20 10/24/16 15:15 96 10/24/16 15:00 97 10/24/16 14:50 97 10/24/16 14:40 97 10/24/16 14:35 97 10/24/16 14:30 100 10/24/16 14:25 100 10/24/16 14:22 100 10/24/16 11:55 97 10/24/16 11:10 97 10/24/16 10:00 - Physical Examination General: No Apparent Distress HEENT: Positive: PERRL Neck: Positive: neck supple Cardiac: Positive: Reg Rate and Rhythm Lungs: Positive: Decreased Breath Sounds Neuro: Positive: Grossly Intact Extremities: Absent: edema - Labs and Meds CBC 10/25/16 Range/Units 04:47 WBC 17.5 H (4.5-11.0) K/mm3 RBC 4.95 (3.65-5.03) M/mm3 Hgb 10.6 L (11.8-15.2) gm/dl Hct 35.1 L (35.5-45.6) % Plt Count 350 (140-440) K/mm3 Lymph # Golf Player Assistant [place] # Golf Player Assistant Eos # Golf Player Assistant Baso # Golf Player Assistant Comprehensive Metabolic Panel 10/25/16 Range/Units 04:47 Sodium 137 (137-145) mmol/L Potassium 4.7 (3.6-5.0) mmol/L Chloride 103.3 (98-107) mmol/L Carbon Dioxide 20 L (22-30) mmol/L BUN 16 (9-20) mg/dL Creatinine 1.4 (0.8-1.5) mg/dL Glucose 209 H (75-100) mg/dL Calcium 8.7 (8.4-10.2) mg/dL
--- NOTE | 2016-10-25 10:25 | Gastroenterology Progress Note ---
Assessment and Plan 1. Cecal mass -S/P Right hemicolectomy. (extended to take out polyp at splenic flexure) -No further GI intervention needed at this time. Diet per surgery. Oncology has been consulted. -Office information provided to patient will follow up as needed. Subjective Date of service: 10/25/16 Principal diagnosis: Cecal mass Interval history: S/P surgery. Objective - Constitutional Vitals: Temp Pulse Resp BP Pulse Ox 98.1 F 72 18 141/67 96 10/25/16 05:22 10/25/16 05:22 10/25/16 05:22 10/25/16 05:22 10/25/16 05:22 General appearance: no acute distress - EENT Eyes: EOM intact ENT: hearing intact - Neck Neck: supple - Respiratory Respiratory: bilateral: CTA - Cardiovascular Rhythm: regular Heart Sounds: Present: S1 & S2 - Gastrointestinal General gastrointestinal: Present: tender, distended, hypoactive bowel sounds, other (dressing midline, D/I) - Integumentary Integumentary: Present: warm, dry - Neurologic Neurological: alert and oriented x3 - Psychiatric Psychiatric: appropriate mood/affect, cooperative - Labs CBC & Chem 7: 10/25/16 04:47 10/25/16 04:47 Labs: Laboratory Results - last 24 hr 10/21/16 10/21/16 10/24/16 10:15 10:15 05:10 WBC RBC Hgb Hct MCV MCH MCHC RDW Plt Count Lymph % (Auto) [place] % (Auto) Eos % (Auto) Baso % (Auto) Lymph # [place] # Eos # Baso # Add Manual Diff Total Counted Seg Neutrophils % Seg Neuts % (Manual) Band Neutrophils % Lymphocytes % (Manual) Reactive Lymphs % (Man) Monocytes % (Manual) Eosinophils % (Manual) Basophils % (Manual) Metamyelocytes % Myelocytes % Promyelocytes % Blast Cells % Nucleated RBC % Seg Neutrophils # Seg Neutrophils # Man Band Neutrophils # Lymphocytes # (Manual) Abs React Lymphs (Man) Monocytes # (Manual) Eosinophils # (Manual) Basophils # (Manual) Metamyelocytes # Myelocytes # Promyelocytes # Blast Cells # WBC Morphology Hypersegmented Neuts Hyposegmented Neuts Hypogranular Neuts Smudge Cells Toxic Granulation Toxic Vacuolation Dohle Bodies Pelger-Huet Anomaly [place] Rods Platelet Estimate Clumped Platelets Plt Clumps, EDTA Large Platelets Giant Platelets Platelet Satelliting Plt Morphology Comment RBC Morphology Dimorphic RBCs Polychromasia Hypochromasia Poikilocytosis Anisocytosis Microcytosis Macrocytosis Spherocytes Pappenheimer Bodies Sickle Cells Target Cells Tear Drop Cells Ovalocytes Helmet Cells [place] Bodies [place] Rings Rough [employer] Ready Cells Bite Cells Crenated Cell Elliptocytes Acanthocytes (Spur) Rouleaux Hemoglobin C Crystals Schistocytes Malaria parasites Adrian Bodies Hem Pathologist Commnt Sodium Potassium Chloride Carbon Dioxide Anion Gap BUN Creatinine Estimated GFR BUN/Creatinine Ratio Glucose Calcium Carcinoembryonic Ag See scanned report Blood Type O POSITIVE Antibody Screen Negative Crossmatch See Detail See Detail 10/25/16 10/25/16 04:47 04:47 WBC 17.5 H RBC 4.95 Hgb 10.6 L Hct 35.1 L MCV 71 L D MCH 21 L MCHC 30 L RDW 21.9 H Plt Count 350 Lymph % (Auto) [employer] Supervisor [place] % (Auto) [employer] Supervisor Eos % (Auto) [employer] Supervisor Baso % (Auto) [employer] Service Supervisor Lymph # [employer] Supervisor [place] # [employer] Service Supervisor Eos # [employer] Service Supervisor Baso # [employer] Service Supervisor Add Manual Diff Complete Total Counted 100 Seg Neutrophils % [employer] Service Supervisor Seg Neuts % (Manual) 92.0 H Band Neutrophils % 2.0 Lymphocytes % (Manual) 3.0 L Reactive Lymphs % (Man) 0 Monocytes % (Manual) 2.0 Eosinophils % (Manual) 0 Basophils % (Manual) 0 Metamyelocytes % 1.0 Myelocytes % 0 Promyelocytes % 0 Blast Cells % 0 Nucleated RBC % Not Reportable Seg Neutrophils # [employer] Supervisor Seg Neutrophils # Man 16.1 H Band Neutrophils # 0.4 Lymphocytes # (Manual) 0.5 L Abs React Lymphs (Man) 0.0 Monocytes # (Manual) 0.4 Eosinophils # (Manual) 0.0 Basophils # (Manual) 0.0 Metamyelocytes # 0.2 Myelocytes # 0.0 Promyelocytes # 0.0 Blast Cells # 0.0 WBC Morphology Not Reportable Hypersegmented Neuts Not Reportable Hyposegmented Neuts Not Reportable Hypogranular Neuts Not Reportable Smudge Cells Not Reportable Toxic Granulation Not Reportable Toxic Vacuolation Not Reportable Dohle Bodies Not Reportable Pelger-Huet Anomaly Not Reportable [place] Rods Not Reportable Platelet Estimate Appears normal Clumped Platelets Not Reportable Plt Clumps, EDTA Not Reportable Large Platelets Not Reportable Giant Platelets Not Reportable Platelet Satelliting Not Reportable Plt Morphology Comment Not Reportable RBC Morphology Not Reportable Dimorphic RBCs Not Reportable Polychromasia Rare Hypochromasia 2+ Poikilocytosis Not Reportable Anisocytosis 1+ Microcytosis Not Reportable Macrocytosis Not Reportable Spherocytes Not Reportable Pappenheimer Bodies Not Reportable Sickle Cells Not Reportable Target Cells Not Reportable Tear Drop Cells Not Reportable Ovalocytes Few Helmet Cells Not Reportable [place] Bodies Not Reportable [place] Rings Not Reportable [place] Cells Not Reportable Bite Cells Not Reportable Crenated Cell Not Reportable Elliptocytes Not Reportable Acanthocytes (Spur) Not Reportable Rouleaux Not Reportable Hemoglobin C Crystals Not Reportable Schistocytes Not Reportable Malaria parasites Not Reportable Adrian Bodies Not Reportable Hem Pathologist Commnt No Sodium 137 Potassium 4.7 Chloride 103.3 Carbon Dioxide 20 L Anion Gap 18 BUN 16 Creatinine 1.4 Estimated GFR 52 BUN/Creatinine Ratio 11.42 Glucose 209 H Calcium 8.7 Carcinoembryonic Ag Blood Type Antibody Screen Crossmatch
[2016-10-25 10:26] LABS: ISTAT Base Excess -2; ISTAT HCO3 22.8; ISTAT PH 7.409 (7.35-7.45); ISTAT PO2 76 (80-105); ISTAT SO2 95; ISTAT TCO2 24
--- NOTE | 2016-10-25 10:56 | Progress Note ---
Assessment and Plan Assessment and plan: 1. Large right colon mass in the area of the cecum. Patient s/p hemicolectomy with Dr. Jorgensen. 2. Anemia. Etiology is most likely acute blood loss anemia. Patient status post transfusion. H&H stable. 3. Infrarenal abdominal aortic aneurysm. Vascular surgery following. 4. Accelerated Hypertension. Continue labetalol to 400 mg twice a day. Continue hydralazine when necessary. 5. History of basal cell cancer and melanoma. 6. DVT prophylaxis. SCDs only given the anemia. History Interval history: 61-year-old man with a history of basal cell cancer, melanoma, hypertension comes emergency room with complaining of right lower quadrant pain since [place]. On his CT scan, he was found to have a large right lower quadrant mass about 8 x 9 x 12 cm and evidence of lymphadenopathy and mesenteric lesions. He also was found to have a questionable mass in the head of the pancreas and infrarenal abdominal aortic aneurysm. EGD confirmed a malignant cecal mass. Patient s/p hemicolectomy all 10/24/16. No new issues overnight. Hospitalist Physical - Constitutional Vitals: Temp Pulse Resp BP Pulse Ox 98.1 F 72 18 141/67 97 10/25/16 05:22 10/25/16 05:22 10/25/16 05:22 10/25/16 05:22 10/25/16 10:00 General appearance: Present: no acute distress - EENT Eyes: Present: PERRL, EOM intact ENT: hearing intact, clear oral mucosa, dentition normal - Neck Neck: Present: supple, normal ROM - Respiratory Respiratory effort: normal Respiratory: bilateral: CTA - Cardiovascular Rhythm: regular Heart Sounds: Present: S1 & S2. Absent: gallop, rub - Extremities Extremities: no ischemia, No edema, Full ROM - Abdominal General gastrointestinal: soft, non-tender, non-distended, normal bowel sounds - Integumentary Integumentary: Present: clear, warm, dry - Neurologic Neurologic: CNII-XII intact, moves all extremities Results - Labs CBC & Chem 7: 10/25/16 04:47 10/25/16 04:47 Labs: Laboratory Last Values WBC 17.5 K/mm3 (4.5-11.0) H 10/25/16 04:47 RBC 4.95 M/mm3 (3.65-5.03) 04/11/17 04:47 Hgb 10.6 gm/dl (11.8-15.2) L 10/25/16 04:47 Hct 35.1 % (35.5-45.6) L 10/25/16 04:47 MCV 71 fl (84-94) L D 10/25/16 04:47 MCH 21 pg (28-32) L 10/25/16 04:47 MCHC 30 % (32-34) L 10/25/16 04:47 RDW 21.9 % (13.2-15.2) H 10/25/16 04:47 Plt Count 350 K/mm3 (140-440) 10/25/16 04:47 Lymph % (Auto) [place] 10/25/16 04:47 [place] % (Auto) [place] 10/25/16 04:47 Eos % (Auto) [place] 10/25/16 04:47 Baso % (Auto) [place] 10/25/16 04:47 Lymph # [place] 10/25/16 04:47 [place] # [place] 10/25/16 04:47 Eos # [place] 10/25/16 04:47 Baso # [place] 10/25/16 04:47 Add Manual Diff Complete 10/25/16 04:47 Total Counted 100 10/25/16 04:47 Seg Neutrophils % [place] 10/25/16 04:47 Seg Neuts % (Manual) 92.0 % (40.0-70.0) H 10/25/16 04:47 Band Neutrophils % 2.0 % 10/25/16 04:47 Lymphocytes % (Manual) 3.0 % (13.4-35.0) L 10/25/16 04:47 Reactive Lymphs % (Man) 0 % 10/25/16 04:47 Monocytes % (Manual) 2.0 % (0.0-7.3) 10/25/16 04:47 Eosinophils % (Manual) 0 % (0.0-4.3) 10/25/16 04:47 Basophils % (Manual) 0 % (0.0-1.8) 10/25/16 04:47 Metamyelocytes % 1.0 % 10/25/16 04:47 Myelocytes % 0 % 10/25/16 04:47 Promyelocytes % 0 % 10/25/16 04:47 Blast Cells % 0 % 10/25/16 04:47 Nucleated RBC % Not Reportable 10/25/16 04:47 Seg Neutrophils # [place] 10/25/16 04:47 Seg Neutrophils # Man 16.1 K/mm3 (1.8-7.7) H 10/25/16 04:47 Band Neutrophils # 0.4 K/mm3 10/25/16 04:47 Lymphocytes # (Manual) 0.5 K/mm3 (1.2-5.4) L 10/25/16 04:47 Abs React Lymphs (Man) 0.0 K/mm3 10/25/16 04:47 Monocytes # (Manual) 0.4 K/mm3 (0.0-0.8) 10/25/16 04:47 Eosinophils # (Manual) 0.0 K/mm3 (0.0-0.4) 10/25/16 04:47 Basophils # (Manual) 0.0 K/mm3 (0.0-0.1) 10/25/16 04:47 Metamyelocytes # 0.2 K/mm3 10/25/16 04:47 Myelocytes # 0.0 K/mm3 10/25/16 04:47 Promyelocytes # 0.0 K/mm3 10/25/16 04:47 Blast Cells # 0.0 K/mm3 10/25/16 04:47 WBC Morphology Not Reportable 10/25/16 04:47 Hypersegmented Neuts Not Reportable 10/25/16 04:47 Hyposegmented Neuts Not Reportable 10/25/16 04:47 Hypogranular Neuts Not Reportable 10/25/16 04:47 Smudge Cells Not Reportable 10/25/16 04:47 Toxic Granulation Not Reportable 10/25/16 04:47 Toxic Vacuolation Not Reportable 10/25/16 04:47 Dohle Bodies Not Reportable 10/25/16 04:47 Pelger-Huet Anomaly Not Reportable 10/25/16 04:47 [place] Rods Not Reportable 10/25/16 04:47 Platelet Estimate Appears normal 10/25/16 04:47 Clumped Platelets Not Reportable 10/25/16 04:47 Plt Clumps, EDTA Not Reportable 10/25/16 04:47 Large Platelets Not Reportable 10/25/16 04:47 Giant Platelets Not Reportable 10/25/16 04:47 Platelet Satelliting Not Reportable 10/25/16 04:47 Plt Morphology Comment Not Reportable 10/25/16 04:47 RBC Morphology Not Reportable 10/25/16 04:47 Dimorphic RBCs Not Reportable 10/25/16 04:47 Polychromasia Rare 10/25/16 04:47 Hypochromasia 2+ 10/25/16 04:47 Poikilocytosis Not Reportable 10/25/16 04:47 Anisocytosis 1+ 10/25/16 04:47 Microcytosis Not Reportable 10/25/16 04:47 Macrocytosis Not Reportable 10/25/16 04:47 Spherocytes Not Reportable 10/25/16 04:47 Pappenheimer Bodies Not Reportable 10/25/16 04:47 Sickle Cells Not Reportable 10/25/16 04:47 Target Cells Not Reportable 10/25/16 04:47 Tear Drop Cells Not Reportable 10/25/16 04:47 Ovalocytes Few 10/25/16 04:47 Helmet Cells Not Reportable 10/25/16 04:47 Caraballo-[place] Bodies Not Reportable 10/25/16 04:47 [place] Rings Not Reportable 10/25/16 04:47 [place] Cells Not Reportable 10/25/16 04:47 Bite Cells Not Reportable 10/25/16 04:47 Crenated Cell Not Reportable 10/25/16 04:47 Elliptocytes Not Reportable 10/25/16 04:47 Acanthocytes (Spur) Not Reportable 10/25/16 04:47 Rouleaux Not Reportable 10/25/16 04:47 Hemoglobin C Crystals Not Reportable 10/25/16 04:47 Schistocytes Not Reportable 10/25/16 04:47 Malaria parasites Not Reportable 10/25/16 04:47 Percent Retic 1.26 % (0.78-2.58) 10/21/16 20:08 Adrian Bodies Not Reportable 10/25/16 04:47 Hem Pathologist Commnt No 10/25/16 04:47 POC ABG pH 7.409 (7.35-7.45) 10/25/16 10:15 POC ABG pCO2 36.0 (35-45) 10/25/16 10:15 POC ABG pO2 76 (80-105) L 10/25/16 10:15 POC ABG HCO3 22.8 10/25/16 10:15 POC ABG Total CO2 24 10/25/16 10:15 POC ABG O2 Sat 95 10/25/16 10:15 POC ABG Base Excess -2 10/25/16 10:15 FiO2 21 % 10/25/16 10:15 Sodium 137 mmol/L (137-145) 10/25/16 04:47 Potassium 4.7 mmol/L (3.6-5.0) 10/25/16 04:47 Chloride 103.3 mmol/L (98-107) 10/25/16 04:47 Carbon Dioxide 20 mmol/L (22-30) L 10/25/16 04:47 Anion Gap 18 mmol/L 10/25/16 04:47 BUN 16 mg/dL (9-20) 10/25/16 04:47 Creatinine 1.4 mg/dL (0.8-1.5) 10/25/16 04:47 Estimated GFR 52 ml/min 10/25/16 04:47 BUN/Creatinine Ratio 11.42 % 10/25/16 04:47 Glucose 209 mg/dL (75-100) H 10/25/16 04:47 POC Glucose 119 (70-105) H 10/23/16 17:08 Calcium 8.7 mg/dL (8.4-10.2) 10/25/16 04:47 Iron 17 ug/dL (49-181) L 10/21/16 20:08 TIBC 276 mcg/dL (250-450) 10/21/16 20:08 % Saturation 2.98 % 10/20/16 13:06 Transferrin 288 mg/dl (180-329) 10/20/16 13:06 Ferritin 40.0 ng/mL (13.0-400.0) 10/21/16 20:08 Total Bilirubin 0.4 mg/dL (0.1-1.2) 10/20/16 13:06 AST 9 units/L (5-40) 10/20/16 13:06 ALT 7 units/L (7-56) 10/20/16 13:06 Alkaline Phosphatase 76 units/L (35-129) 10/20/16 13:06 Lactate Dehydrogenase 125 units/L (91-180) 10/21/16 20:08 Total Protein 7.6 g/dL (6.3-8.2) 10/20/16 13:06 Albumin 4.0 g/dL (3.9-5) 10/20/16 13:06 Albumin/Globulin Ratio 1.1 % 10/20/16 13:06 Lipase 19 units/L (13-60) 10/20/16 13:06 Carcinoembryonic Ag See scanned report 10/21/16 10:15 CA 19-9 Antigen 9 U/mL (<34) 10/21/16 10:15 Vitamin B12 471.6 pg/mL (211-911) 10/21/16 20:08 Folate 11.76 ng/mL (7.3-26.0) 10/21/16 20:08 TSH 1.870 mlU/mL (0.270-4.200) 10/21/16 10:15 Urine Color Yellow (Yellow) 10/20/16 16:05 Urine Turbidity Clear (Clear) 10/20/16 16:05 Urine pH 5.0 (5.0-7.0) 10/20/16 16:05 Ur Specific [place] 1.021 (1.003-1.030) 10/20/16 16:05 Urine Protein <15 mg/dl mg/dL (Negative) 10/20/16 16:05 Urine Glucose (UA) Neg mg/dL (Negative) 10/20/16 16:05 Urine Ketones Tr mg/dL (Negative) 10/20/16 16:05 Urine Blood Neg (Negative) 10/20/16 16:05 Urine Nitrite Neg (Negative) 10/20/16 16:05 Urine Bilirubin Neg (Negative) 10/20/16 16:05 Urine Urobilinogen < 2.0 mg/dL (<2.0) 10/20/16 16:05 Ur Leukocyte Esterase Tr (Negative) 10/20/16 16:05 Urine WBC (Auto) 3.0 /HPF (0.0-6.0) 10/20/16 16:05 Urine RBC (Auto) 3.0 /HPF (0.0-6.0) 10/20/16 16:05 U Epithel Cells (Auto) 1.0 /HPF (0-13.0) 10/20/16 16:05 Urine Mucus 1+ /HPF 10/20/16 16:05 Blood Type O POSITIVE 10/24/16 05:10 Antibody Screen Negative 10/24/16 05:10 Crossmatch See Detail 10/24/16 05:10
--- NOTE | 2016-10-25 12:10 | Progress Note ---
Assessment and Plan IMP: Stable 1st post op day. PLAN: D/C [place]. Continue NPO. Labs in am. Subjective Date of service: 10/25/16 Patient Reports: Positive: no new complaints, feels better, no flatus, no bowel movement Objective Vital Signs - 12hr 10/25/16 10/25/16 10/25/16 00:50 05:22 10:00 Temperature 98.0 F 98.1 F Pulse Rate [ 72 72 Left Radial] Respiratory 20 18 Rate Blood Pressure 142/64 141/67 [Left Arm] O2 Sat by Pulse 96 96 97 Oximetry - Abdomen soft, tender (op site), bowel sounds hypoactive, wound (dressings dry and clear. ) - Labs 10/25/16 04:47 10/25/16 04:47 Diabetes panel 10/25/16 Range/Units 04:47 Sodium 137 (137-145) mmol/L Potassium 4.7 (3.6-5.0) mmol/L Chloride 103.3 (98-107) mmol/L Carbon Dioxide 20 L (22-30) mmol/L BUN 16 (9-20) mg/dL Creatinine 1.4 (0.8-1.5) mg/dL Glucose 209 H (75-100) mg/dL Calcium 8.7 (8.4-10.2) mg/dL Calcium panel 10/25/16 Range/Units 04:47 Calcium 8.7 (8.4-10.2) mg/dL Pituitary panel 10/25/16 Range/Units 04:47 Sodium 137 (137-145) mmol/L Potassium 4.7 (3.6-5.0) mmol/L Chloride 103.3 (98-107) mmol/L Carbon Dioxide 20 L (22-30) mmol/L BUN 16 (9-20) mg/dL Creatinine 1.4 (0.8-1.5) mg/dL Glucose 209 H (75-100) mg/dL Calcium 8.7 (8.4-10.2) mg/dL Adrenal panel 10/25/16 Range/Units 04:47 Sodium 137 (137-145) mmol/L Potassium 4.7 (3.6-5.0) mmol/L Chloride 103.3 (98-107) mmol/L Carbon Dioxide 20 L (22-30) mmol/L BUN 16 (9-20) mg/dL Creatinine 1.4 (0.8-1.5) mg/dL Glucose 209 H (75-100) mg/dL Calcium 8.7 (8.4-10.2) mg/dL
[2016-10-25] MEDS: NORMODYNE PO SCH ×2 (17:17→21:53)
--- NOTE | 2016-10-25 20:15 | Progress Note ---
Assessment and Plan Patient alert, awake. Complaining pain at incision site.Patient undergone exploratory laparotomy and resection of intestinal mass. No complaint of chest pain or shortness of breath..Patient is on 2 litres O2. O2 satuaration 97%. - Patient Problems (1) Intestinal mass Current Visit: Yes Status: Acute Plan to address problem: Exploratory laparotomy and resection of intestinal mass. Recommend incentive spirometry. Recommend DVT prophylaxis. (2) Aortic dissection, abdominal Current Visit: Yes Status: Acute Plan to address problem: Recommend to consult vascular surgery. Subjective Date of service: 10/25/16 Principal diagnosis: Cecal mass Interval history: Patient alert, awake. Complaining pain at incision site.Patient undergone exploratory laparotomy and resection of intestinal mass. No Complaint of chest pain or shortness of breath..Patient is on 2 litres O2. O2 satuaration 97%. Objective Vital Signs - 12hr 10/25/16 10/25/16 10/25/16 08:35 10:00 16:35 Temperature 98.1 F 98.0 F Pulse Rate [ 64 64 68 Left Radial] Pulse Rate [ 64 Right Radial] Respiratory 22 68 H Rate Blood Pressure 135/63 176/74 [Left Arm] O2 Sat by Pulse 96 97 97 Oximetry Constitutional: no acute distress, alert Eyes: non-icteric ENT: oropharynx moist Neck: supple, no lymphadenopathy Effort: normal Ascultation: Bilateral: clear Cardiovascular: regular rate and rhythm Gastrointestinal: hypoactive bowel sounds, tender, non-distended, other ( Tenderness at the incision site.) Integumentary: normal Extremities: no cyanosis, no edema, pink and warm, pulses normal, no ischemia or petechiae Neurologic: normal mental status, non-focal exam, pupils equal and round, motor strength normal and Psychiatric: mood appropriate, affect normal CBC and BMP: 10/25/16 04:47 10/25/16 04:47 ABG, PT/INR, D-dimer: ABG POC ABG pH 7.409 (7.35-7.45) 10/25/16 10:15 POC ABG pCO2 36.0 (35-45) 10/25/16 10:15 POC ABG pO2 76 (80-105) L 10/25/16 10:15 POC ABG HCO3 22.8 10/25/16 10:15 POC ABG Total CO2 24 10/25/16 10:15 POC ABG O2 Sat 95 10/25/16 10:15 Abnormal lab findings: Abnormal Labs 10/21/16 10/21/16 10/21/16 04:17 04:17 10:15 WBC Hgb 7.5 L Hct 26.6 L MCV 65 L MCH 20 L MCHC 30 L RDW 17.2 H Lymph % (Auto) [place] % (Auto) 10.3 H Lymph # 1.1 L [place] # Seg Neutrophils % 74.0 H Seg Neuts % (Manual) Lymphocytes % (Manual) Seg Neutrophils # Man Lymphocytes # (Manual) POC ABG pO2 Carbon Dioxide BUN 23 H Glucose 128 H POC Glucose Calcium 8.3 L [place] Crossmatch See Detail 10/21/16 10/22/16 10/22/16 20:08 04:29 04:29 WBC Hgb 8.1 L Hct 26.6 L MCV 67 L MCH 20 L MCHC 31 L RDW 18.0 H Lymph % (Auto) [place] % (Auto) 11.0 H Lymph # [place] # 0.9 H Seg Neutrophils % 71.6 H Seg Neuts % (Manual) Lymphocytes % (Manual) Seg Neutrophils # Man Lymphocytes # (Manual) POC ABG pO2 Carbon Dioxide BUN Glucose 111 H POC Glucose Calcium Iron 17 L Crossmatch 10/23/16 10/23/16 10/23/16 04:25 04:25 17:08 WBC Hgb 8.2 L Hct 27.0 L MCV 67 L MCH 20 L MCHC 30 L RDW 18.6 H Lymph % (Auto) [place] % (Auto) 11.2 H Lymph # 1.1 L [place] # Seg Neutrophils % Seg Neuts % (Manual) Lymphocytes % (Manual) Seg Neutrophils # Man Lymphocytes # (Manual) POC ABG pO2 Carbon Dioxide BUN Glucose 114 H POC Glucose 119 H Calcium Iron Crossmatch 10/24/16 10/24/16 10/24/16 05:10 05:11 05:11 WBC Hgb 9.3 L Hct 31.2 L MCV 67 L MCH 20 L MCHC 30 L RDW 18.8 H Lymph % (Auto) 12.9 L [place] % (Auto) 10.8 H Lymph # 1.1 L [place] # 1.0 H Seg Neutrophils % 73.6 H Seg Neuts % (Manual) Lymphocytes % (Manual) Seg Neutrophils # Man Lymphocytes # (Manual) POC ABG pO2 Carbon Dioxide BUN Glucose 145 H POC Glucose Calcium Iron Crossmatch See Detail 10/25/16 10/25/16 10/25/16 04:47 04:47 10:15 WBC 17.5 H Hgb 10.6 L Hct 35.1 L MCV 71 L D MCH 21 L MCHC 30 L RDW 21.9 H Lymph % (Auto) [place] % (Auto) Lymph # [place] # Seg Neutrophils % Seg Neuts % (Manual) 92.0 H Lymphocytes % (Manual) 3.0 L Seg Neutrophils # Man 16.1 H Lymphocytes # (Manual) 0.5 L POC ABG pO2 76 L Carbon Dioxide 20 L BUN Glucose 209 H POC Glucose Calcium Iron Crossmatch Chest x-ray: report reviewed (Reported unremarkable AP chest.)
[2016-10-25] MEDS: PEPCID PO SCH (21:53)
[2016-10-26 05:50] LABS: Basophils % (Auto) 0.1 % (0.0-1.8); Hematocrit 31.8 % (35.5-45.6); Hemoglobin 9.8 gm/dl (11.8-15.2); Mean Corpuscular HGB Conc 31 % (32-34); Mean Corpuscular Hemoglobin 22 pg (28-32); Mean Corpuscular Volume 70 fl (84-94); Platelet Count 314 K/mm3 (140-440); Red Blood Count 4.52 M/mm3 (3.65-5.03); Red Cell Distribution Width 22.3 % (13.2-15.2); White Blood Count 15.6 K/mm3 (4.5-11.0)
[2016-10-26 06:10] LABS: BUN/Creatinine Ratio 16.15; Calcium 8.7 mg/dL (8.4-10.2); Potassium 4.5 mmol/L (3.6-5.0)
[2016-10-26] MEDS: APRESOLINE IV PRN ×2 (06:49→14:52)
--- NOTE | 2016-10-26 08:24 | XRay Report ---
AP CHEST: HISTORY: Followup respiratory failure AP view of the chest demonstrates a normal mediastinal and cardiac contour with clear lungs and normal bony and soft tissue structures. IMPRESSION: No acute cardiopulmonary process. No significant change since yesterday's exam.
--- NOTE | 2016-10-26 09:34 | Progress Note ---
Assessment and Plan Cecal mass s/p right hemicolectomy Anemia Hypertension We will follow serial postoperative EKG. Subjective Date of service: 10/26/16 Principal diagnosis: Cecal mass Interval history: Patient denies chest pain and shortness of breath. Post operative ECG not done. Objective Vital Signs Temp Pulse Pulse Resp BP Pulse Ox 10/26/16 04:30 98.2 F 75 18 186/81 96 10/26/16 00:39 98.4 F 78 20 149/82 96 10/25/16 22:00 80 18 10/25/16 21:56 80 10/25/16 20:55 97.9 F 66 20 131/69 95 10/25/16 16:35 98.0 F 68 68 H 176/74 97 10/25/16 10:00 64 97 - Physical Examination General: No Apparent Distress HEENT: Positive: PERRL Neck: Positive: neck supple Cardiac: Positive: Reg Rate and Rhythm Neuro: Positive: Grossly Intact Extremities: Absent: edema - Labs and Meds CBC 10/26/16 Range/Units 05:12 WBC 15.6 H (4.5-11.0) K/mm3 RBC 4.52 (3.65-5.03) M/mm3 Hgb 9.8 L (11.8-15.2) gm/dl Hct 31.8 L (35.5-45.6) % Plt Count 314 (140-440) K/mm3 Lymph # 0.6 L (1.2-5.4) K/mm3 [place] # 1.1 H (0.0-0.8) K/mm3 Eos # 0.0 (0.0-0.4) K/mm3 Baso # 0.0 (0.0-0.1) K/mm3 Comprehensive Metabolic Panel 10/26/16 Range/Units 05:12 Sodium 140 (137-145) mmol/L Potassium 4.5 (3.6-5.0) mmol/L Chloride 104.0 (98-107) mmol/L Carbon Dioxide 23 (22-30) mmol/L BUN 21 H (9-20) mg/dL Creatinine 1.3 (0.8-1.5) mg/dL Glucose 120 H (75-100) mg/dL Calcium 8.7 (8.4-10.2) mg/dL
--- NOTE | 2016-10-26 09:55 | Hem/Onc Progress Note ---
Assessment and Plan Awaiting final pathology. CEA was 5.5. CA 199 was also normal. Upon discharge I will see him in my office. We will plan on chemotherapy etc. if indicated indicated. Subjective Date of service: 10/26/16 Interval history: Patient feels fair. No flatus or bowel movement yet though. Objective - Exam Narrative Exam: stable - Constitutional Vitals: Last Vital Signs Temp 98.2 F 10/26/16 09:47 Pulse 81 10/26/16 09:47 Resp 18 10/26/16 09:47 BP 167/74 10/26/16 09:47 Pulse Ox 96 10/26/16 09:47 General appearance: no acute distress Performance status: 3-limited selfcare - Neck Neck: supple - Respiratory Respiratory: bilateral: CTA - Cardiovascular Rhythm: regular - Gastrointestinal General gastrointestinal: Present: soft - Labs Lab Results: Laboratory Results - last 24 hr 10/24/16 10/25/16 10/26/16 05:10 10:15 05:12 WBC 15.6 H RBC 4.52 Hgb 9.8 L Hct 31.8 L MCV 70 L MCH 22 L MCHC 31 L RDW 22.3 H Plt Count 314 Lymph % (Auto) 3.9 L [place] % (Auto) 7.1 Eos % (Auto) 0.0 Baso % (Auto) 0.1 Lymph # 0.6 L [place] # 1.1 H Eos # 0.0 Baso # 0.0 Seg Neutrophils % 88.9 H Seg Neutrophils # 13.9 H POC ABG pH 7.409 POC ABG pCO2 36.0 POC ABG pO2 76 L POC ABG HCO3 22.8 POC ABG Total CO2 24 POC ABG O2 Sat 95 POC ABG Base Excess -2 FiO2 21 Sodium Potassium Chloride Carbon Dioxide Anion Gap BUN Creatinine Estimated GFR BUN/Creatinine Ratio Glucose Calcium Blood Type O POSITIVE Antibody Screen Negative Crossmatch See Detail 10/26/16 05:12 WBC RBC Hgb Hct MCV MCH MCHC RDW Plt Count Lymph % (Auto) [place] % (Auto) Eos % (Auto) Baso % (Auto) Lymph # [place] # Eos # Baso # Seg Neutrophils % Seg Neutrophils # POC ABG pH POC ABG pCO2 POC ABG pO2 POC ABG HCO3 POC ABG Total CO2 POC ABG O2 Sat POC ABG Base Excess FiO2 Sodium 140 Potassium 4.5 Chloride 104.0 Carbon Dioxide 23 Anion Gap 18 BUN 21 H Creatinine 1.3 Estimated GFR 56 BUN/Creatinine Ratio 16.15 Glucose 120 H Calcium 8.7 Blood Type Antibody Screen Crossmatch
[2016-10-26] MEDS: LACTATED RINGERS 1,000 ML IV SCH ×3 (10:24→23:58)
--- NOTE | 2016-10-26 10:24 | Progress Note ---
Assessment and Plan Assessment and plan: 1. Large right colon mass in the area of the cecum. Patient s/p hemicolectomy with Dr. Jorgensen. Continue supportive care and pain control. 2. Anemia. Etiology is most likely acute blood loss anemia. Patient status post transfusion. H&H stable. 3. Infrarenal abdominal aortic aneurysm. Vascular surgery following. 4. Accelerated Hypertension. Continue labetalol to 400 mg twice a day. Continue hydralazine when necessary. 5. History of basal cell cancer and melanoma. 6. DVT prophylaxis. SCDs only given the anemia. History Interval history: 61-year-old man with a history of basal cell cancer, melanoma, hypertension comes emergency room with complaining of right lower quadrant pain since [place]. On his CT scan, he was found to have a large right lower quadrant mass about 8 x 9 x 12 cm and evidence of lymphadenopathy and mesenteric lesions. He also was found to have a questionable mass in the head of the pancreas and infrarenal abdominal aortic aneurysm. EGD confirmed a malignant cecal mass. Patient s/p hemicolectomy all 10/24/16. No new issues overnight. Hospitalist Physical - Constitutional Vitals: Temp Pulse Resp BP Pulse Ox 98.2 F 81 18 167/74 96 10/26/16 09:47 10/26/16 09:47 10/26/16 09:47 10/26/16 09:47 10/26/16 09:47 General appearance: Present: no acute distress - EENT Eyes: Present: PERRL, EOM intact ENT: hearing intact, clear oral mucosa, dentition normal - Neck Neck: Present: supple, normal ROM - Respiratory Respiratory effort: normal Respiratory: bilateral: CTA - Cardiovascular Rhythm: regular Heart Sounds: Present: S1 & S2. Absent: gallop, rub - Extremities Extremities: no ischemia, No edema, Full ROM - Abdominal General gastrointestinal: soft, non-tender, non-distended, normal bowel sounds - Integumentary Integumentary: Present: clear, warm, dry - Neurologic Neurologic: CNII-XII intact, moves all extremities Results - Labs CBC & Chem 7: 10/26/16 05:12 10/26/16 05:12 Labs: Laboratory Last Values WBC 15.6 K/mm3 (4.5-11.0) H 10/26/16 05:12 RBC 4.52 M/mm3 (3.65-5.03) 10/26/16 05:12 Hgb 9.8 gm/dl (11.8-15.2) L 10/26/16 05:12 Hct 31.8 % (35.5-45.6) L 10/26/16 05:12 MCV 70 fl (84-94) L 10/26/16 05:12 MCH 22 pg (28-32) L 10/26/16 05:12 MCHC 31 % (32-34) L 10/26/16 05:12 RDW 22.3 % (13.2-15.2) H 10/26/16 05:12 Plt Count 314 K/mm3 (140-440) 10/26/16 05:12 Lymph % (Auto) 3.9 % (13.4-35.0) L 10/26/16 05:12 [place] % (Auto) 7.1 % (0.0-7.3) 10/26/16 05:12 Eos % (Auto) 0.0 % (0.0-4.3) 10/26/16 05:12 Baso % (Auto) 0.1 % (0.0-1.8) 10/26/16 05:12 Lymph # 0.6 K/mm3 (1.2-5.4) L 10/26/16 05:12 [place] # 1.1 K/mm3 (0.0-0.8) H 10/26/16 05:12 Eos # 0.0 K/mm3 (0.0-0.4) 10/26/16 05:12 Baso # 0.0 K/mm3 (0.0-0.1) 10/26/16 05:12 Add Manual Diff Complete 10/25/16 04:47 Total Counted 100 10/25/16 04:47 Seg Neutrophils % 88.9 % (40.0-70.0) H 10/26/16 05:12 Seg Neuts % (Manual) 92.0 % (40.0-70.0) H 10/25/16 04:47 Band Neutrophils % 2.0 % 10/25/16 04:47 Lymphocytes % (Manual) 3.0 % (13.4-35.0) L 10/25/16 04:47 Reactive Lymphs % (Man) 0 % 10/25/16 04:47 Monocytes % (Manual) 2.0 % (0.0-7.3) 10/25/16 04:47 Eosinophils % (Manual) 0 % (0.0-4.3) 10/25/16 04:47 Basophils % (Manual) 0 % (0.0-1.8) 10/25/16 04:47 Metamyelocytes % 1.0 % 10/25/16 04:47 Myelocytes % 0 % 10/25/16 04:47 Promyelocytes % 0 % 10/25/16 04:47 Blast Cells % 0 % 10/25/16 04:47 Nucleated RBC % Not Reportable 10/25/16 04:47 Seg Neutrophils # 13.9 K/mm3 (1.8-7.7) H 10/26/16 05:12 Seg Neutrophils # Man 16.1 K/mm3 (1.8-7.7) H 10/25/16 04:47 Band Neutrophils # 0.4 K/mm3 10/25/16 04:47 Lymphocytes # (Manual) 0.5 K/mm3 (1.2-5.4) L 10/25/16 04:47 Abs React Lymphs (Man) 0.0 K/mm3 10/25/16 04:47 Monocytes # (Manual) 0.4 K/mm3 (0.0-0.8) 10/25/16 04:47 Eosinophils # (Manual) 0.0 K/mm3 (0.0-0.4) 10/25/16 04:47 Basophils # (Manual) 0.0 K/mm3 (0.0-0.1) 10/25/16 04:47 Metamyelocytes # 0.2 K/mm3 10/25/16 04:47 Myelocytes # 0.0 K/mm3 10/25/16 04:47 Promyelocytes # 0.0 K/mm3 10/25/16 04:47 Blast Cells # 0.0 K/mm3 10/25/16 04:47 WBC Morphology Not Reportable 10/25/16 04:47 Hypersegmented Neuts Not Reportable 10/25/16 04:47 Hyposegmented Neuts Not Reportable 10/25/16 04:47 Hypogranular Neuts Not Reportable 10/25/16 04:47 Smudge Cells Not Reportable 10/25/16 04:47 Toxic Granulation Not Reportable 10/25/16 04:47 Toxic Vacuolation Not Reportable 10/25/16 04:47 Dohle Bodies Not Reportable 10/25/16 04:47 Pelger-Huet Anomaly Not Reportable 10/25/16 04:47 Kendall Rods Not Reportable 10/25/16 04:47 Platelet Estimate Appears normal 10/25/16 04:47 Clumped Platelets Not Reportable 10/25/16 04:47 Plt Clumps, EDTA Not Reportable 10/25/16 04:47 Large Platelets Not Reportable 10/25/16 04:47 Giant Platelets Not Reportable 10/25/16 04:47 Platelet Satelliting Not Reportable 10/25/16 04:47 Plt Morphology Comment Not Reportable 10/25/16 04:47 RBC Morphology Not Reportable 10/25/16 04:47 Dimorphic RBCs Not Reportable 10/25/16 04:47 Polychromasia Rare 10/25/16 04:47 Hypochromasia 2+ 10/25/16 04:47 Poikilocytosis Not Reportable 10/25/16 04:47 Anisocytosis 1+ 10/25/16 04:47 Microcytosis Not Reportable 10/25/16 04:47 Macrocytosis Not Reportable 10/25/16 04:47 Spherocytes Not Reportable 10/25/16 04:47 Pappenheimer Bodies Not Reportable 10/25/16 04:47 Sickle Cells Not Reportable 10/25/16 04:47 Target Cells Not Reportable 10/25/16 04:47 Tear Drop Cells Not Reportable 10/25/16 04:47 Ovalocytes Few 10/25/16 04:47 Helmet Cells Not Reportable 10/25/16 04:47 [place] Bodies Not Reportable 10/25/16 04:47 [place] Rings Not Reportable 10/25/16 04:47 [place] Cells Not Reportable 10/25/16 04:47 Bite Cells Not Reportable 10/25/16 04:47 Crenated Cell Not Reportable 10/25/16 04:47 Elliptocytes Not Reportable 10/25/16 04:47 Acanthocytes (Spur) Not Reportable 10/25/16 04:47 Rouleaux Not Reportable 10/25/16 04:47 Hemoglobin C Crystals Not Reportable 10/25/16 04:47 Schistocytes Not Reportable 10/25/16 04:47 Malaria parasites Not Reportable 10/25/16 04:47 Percent Retic 1.26 % (0.78-2.58) 10/21/16 20:08 [place] Bodies Not Reportable 10/25/16 04:47 Hem Pathologist Commnt No 10/25/16 04:47 POC ABG pH 7.409 (7.35-7.45) 10/25/16 10:15 POC ABG pCO2 36.0 (35-45) 10/25/16 10:15 POC ABG pO2 76 (80-105) L 10/25/16 10:15 POC ABG HCO3 22.8 10/25/16 10:15 POC ABG Total CO2 24 10/25/16 10:15 POC ABG O2 Sat 95 10/25/16 10:15 POC ABG Base Excess -2 10/25/16 10:15 FiO2 21 % 10/25/16 10:15 Sodium 140 mmol/L (137-145) 10/26/16 05:12 Potassium 4.5 mmol/L (3.6-5.0) 10/26/16 05:12 Chloride 104.0 mmol/L (98-107) 10/26/16 05:12 Carbon Dioxide 23 mmol/L (22-30) 10/26/16 05:12 Anion Gap 18 mmol/L 10/26/16 05:12 BUN 21 mg/dL (9-20) H 10/26/16 05:12 Creatinine 1.3 mg/dL (0.8-1.5) 10/26/16 05:12 Estimated GFR 56 ml/min 10/26/16 05:12 BUN/Creatinine Ratio 16.15 % 10/26/16 05:12 Glucose 120 mg/dL (75-100) H 10/26/16 05:12 POC Glucose 119 (70-105) H 10/23/16 17:08 Calcium 8.7 mg/dL (8.4-10.2) 10/26/16 05:12 Iron 17 ug/dL (49-181) L 10/21/16 20:08 TIBC 276 mcg/dL (250-450) 10/21/16 20:08 % Saturation 2.98 % 10/20/16 13:06 Transferrin 288 mg/dl (180-329) 10/20/16 13:06 Ferritin 40.0 ng/mL (13.0-400.0) 10/21/16 20:08 Total Bilirubin 0.4 mg/dL (0.1-1.2) 10/20/16 13:06 AST 9 units/L (5-40) 10/20/16 13:06 ALT 7 units/L (7-56) 10/20/16 13:06 Alkaline Phosphatase 76 units/L (35-129) 10/20/16 13:06 Lactate Dehydrogenase 125 units/L (91-180) 10/21/16 20:08 Total Protein 7.6 g/dL (6.3-8.2) 10/20/16 13:06 Albumin 4.0 g/dL (3.9-5) 10/20/16 13:06 Albumin/Globulin Ratio 1.1 % 10/20/16 13:06 Lipase 19 units/L (13-60) 10/20/16 13:06 Carcinoembryonic Ag See scanned report 10/21/16 10:15 CA 19-9 Antigen 9 U/mL (<34) 10/21/16 10:15 Vitamin B12 471.6 pg/mL (211-911) 10/21/16 20:08 Folate 11.76 ng/mL (7.3-26.0) 10/21/16 20:08 TSH 1.870 mlU/mL (0.270-4.200) 10/21/16 10:15 Urine Color Yellow (Yellow) 10/20/16 16:05 Urine Turbidity Clear (Clear) 10/20/16 16:05 Urine pH 5.0 (5.0-7.0) 10/20/16 16:05 Ur Specific [place] 1.021 (1.003-1.030) 10/20/16 16:05 Urine Protein <15 mg/dl mg/dL (Negative) 10/20/16 16:05 Urine Glucose (UA) Neg mg/dL (Negative) 10/20/16 16:05 Urine Ketones Tr mg/dL (Negative) 10/20/16 16:05 Urine Blood Neg (Negative) 10/20/16 16:05 Urine Nitrite Neg (Negative) 10/20/16 16:05 Urine Bilirubin Neg (Negative) 10/20/16 16:05 Urine Urobilinogen < 2.0 mg/dL (<2.0) 10/20/16 16:05 Ur Leukocyte Esterase Tr (Negative) 10/20/16 16:05 Urine WBC (Auto) 3.0 /HPF (0.0-6.0) 10/20/16 16:05 Urine RBC (Auto) 3.0 /HPF (0.0-6.0) 10/20/16 16:05 U Epithel Cells (Auto) 1.0 /HPF (0-13.0) 10/20/16 16:05 Urine Mucus 1+ /HPF 10/20/16 16:05 Blood Type O POSITIVE 10/24/16 05:10 Antibody Screen Negative 10/24/16 05:10 Crossmatch See Detail 10/24/16 05:10
[2016-10-26] MEDS: NORMODYNE PO SCH ×2 (10:25→21:28)
[2016-10-26] MEDS: PEPCID PO SCH (10:25)
--- NOTE | 2016-10-26 13:09 | Progress Note ---
Assessment and Plan IMP: Stable 2nd post op day. PLAN: Continue NPO. Wound nurse consult for dressings bari change. Labs in am. Subjective Date of service: 10/26/16 Patient Reports: Positive: no new complaints, pain is less, voiding w/o difficulty, no flatus, no bowel movement Objective Vital Signs - 12hr 10/26/16 10/26/16 04:30 09:47 Temperature 98.2 F 98.2 F Pulse Rate [ 75 Left Radial] Pulse Rate [ 81 Right Radial] Respiratory 18 18 Rate Blood Pressure 186/81 167/74 [Left Arm] O2 Sat by Pulse 96 96 Oximetry - Abdomen soft, tender (mild operative site tenderness), bowel sounds hypoactive, not distended, wound (dressings dry and clear ) - Labs 10/26/16 05:12 10/26/16 05:12 Diabetes panel 10/26/16 Range/Units 05:12 Sodium 140 (137-145) mmol/L Potassium 4.5 (3.6-5.0) mmol/L Chloride 104.0 (98-107) mmol/L Carbon Dioxide 23 (22-30) mmol/L BUN 21 H (9-20) mg/dL Creatinine 1.3 (0.8-1.5) mg/dL Glucose 120 H (75-100) mg/dL Calcium 8.7 (8.4-10.2) mg/dL Calcium panel 10/26/16 Range/Units 05:12 Calcium 8.7 (8.4-10.2) mg/dL Pituitary panel 10/26/16 Range/Units 05:12 Sodium 140 (137-145) mmol/L Potassium 4.5 (3.6-5.0) mmol/L Chloride 104.0 (98-107) mmol/L Carbon Dioxide 23 (22-30) mmol/L BUN 21 H (9-20) mg/dL Creatinine 1.3 (0.8-1.5) mg/dL Glucose 120 H (75-100) mg/dL Calcium 8.7 (8.4-10.2) mg/dL Adrenal panel 10/26/16 Range/Units 05:12 Sodium 140 (137-145) mmol/L Potassium 4.5 (3.6-5.0) mmol/L Chloride 104.0 (98-107) mmol/L Carbon Dioxide 23 (22-30) mmol/L BUN 21 H (9-20) mg/dL Creatinine 1.3 (0.8-1.5) mg/dL Glucose 120 H (75-100) mg/dL Calcium 8.7 (8.4-10.2) mg/dL
--- NOTE | 2016-10-26 21:30 | Progress Note ---
Assessment and Plan Patient alert, awake. No complaint of chest pain or shortness of breath..Patient is on 2 litres O2. O2 satuaration 97%. - Patient Problems (1) Intestinal mass Current Visit: Yes Status: Acute Plan to address problem: Exploratory laparotomy and resection of intestinal mass. Recommend incentive spirometry. Recommend DVT prophylaxis. (2) Aortic dissection, abdominal Current Visit: Yes Status: Acute Plan to address problem: Recommend to consult vascular surgery. Subjective Date of service: 10/26/16 Principal diagnosis: Cecal mass Interval history: Patient alert, awake. No Complaint of chest pain or shortness of breath..Patient is on 2 litres O2. O2 satuaration 97%. Objective Vital Signs - 12hr 10/26/16 10/26/16 10/26/16 09:47 10:00 14:49 Temperature 98.2 F 97.9 F Pulse Rate 75 Pulse Rate [ 75 From Monitor] Pulse Rate [ Left Radial] Pulse Rate [ 81 Right Radial] Respiratory 18 14 Rate Blood Pressure Blood Pressure 167/74 173/86 [Left Arm] O2 Sat by Pulse 96 97 Oximetry 10/26/16 10/26/16 10/26/16 14:52 17:44 20:00 Temperature 98.0 F 98.0 F Pulse Rate 75 Pulse Rate [ From Monitor] Pulse Rate [ 83 Left Radial] Pulse Rate [ 75 Right Radial] Respiratory 18 18 Rate Blood Pressure 173/86 Blood Pressure 163/82 161/70 [Left Arm] O2 Sat by Pulse 95 97 Oximetry Constitutional: no acute distress, alert Eyes: non-icteric ENT: oropharynx moist Neck: supple, no lymphadenopathy Effort: normal Ascultation: Bilateral: clear Cardiovascular: regular rate and rhythm Gastrointestinal: hypoactive bowel sounds, tender, non-distended, other ( Tenderness at the incision site.) Integumentary: normal Extremities: no cyanosis, no edema, pink and warm, pulses normal, no ischemia or petechiae Neurologic: normal mental status, non-focal exam, pupils equal and round, motor strength normal and Psychiatric: mood appropriate, affect normal CBC and BMP: 10/26/16 05:12 10/26/16 05:12 ABG, PT/INR, D-dimer: ABG POC ABG pH 7.409 (7.35-7.45) 10/25/16 10:15 POC ABG pCO2 36.0 (35-45) 10/25/16 10:15 POC ABG pO2 76 (80-105) L 10/25/16 10:15 POC ABG HCO3 22.8 10/25/16 10:15 POC ABG Total CO2 24 10/25/16 10:15 POC ABG O2 Sat 95 10/25/16 10:15 Abnormal lab findings: Abnormal Labs 10/21/16 10/21/16 10/21/16 04:17 04:17 10:15 WBC Hgb 7.5 L Hct 26.6 L MCV 65 L MCH 20 L MCHC 30 L RDW 17.2 H Lymph % (Auto) [place] % (Auto) 10.3 H Lymph # 1.1 L [place] # Seg Neutrophils % 74.0 H Seg Neuts % (Manual) Lymphocytes % (Manual) Seg Neutrophils # Seg Neutrophils # Man Lymphocytes # (Manual) POC ABG pO2 Carbon Dioxide BUN 23 H Glucose 128 H POC Glucose Calcium 8.3 L Iron Crossmatch See Detail 10/21/16 10/22/16 10/22/16 20:08 04:29 04:29 WBC Hgb 8.1 L Hct 26.6 L MCV 67 L MCH 20 L MCHC 31 L RDW 18.0 H Lymph % (Auto) [place] % (Auto) 11.0 H Lymph # [place] # 0.9 H Seg Neutrophils % 71.6 H Seg Neuts % (Manual) Lymphocytes % (Manual) Seg Neutrophils # Seg Neutrophils # Man Lymphocytes # (Manual) POC ABG pO2 Carbon Dioxide BUN Glucose 111 H POC Glucose Calcium Iron 17 L Crossmatch 10/23/16 10/23/16 10/23/16 04:25 04:25 17:08 WBC Hgb 8.2 L Hct 27.0 L MCV 67 L MCH 20 L MCHC 30 L RDW 18.6 H Lymph % (Auto) [place] % (Auto) 11.2 H Lymph # 1.1 L [place] # Seg Neutrophils % Seg Neuts % (Manual) Lymphocytes % (Manual) Seg Neutrophils # Seg Neutrophils # Man Lymphocytes # (Manual) POC ABG pO2 Carbon Dioxide BUN Glucose 114 H POC Glucose 119 H Calcium Iron Crossmatch 10/24/16 10/24/16 10/24/16 05:10 05:11 05:11 WBC Hgb 9.3 L Hct 31.2 L MCV 67 L MCH 20 L MCHC 30 L RDW 18.8 H Lymph % (Auto) 12.9 L [place] % (Auto) 10.8 H Lymph # 1.1 L [place] # 1.0 H Seg Neutrophils % 73.6 H Seg Neuts % (Manual) Lymphocytes % (Manual) Seg Neutrophils # Seg Neutrophils # Man Lymphocytes # (Manual) POC ABG pO2 Carbon Dioxide BUN Glucose 145 H POC Glucose Calcium Iron Crossmatch See Detail 10/25/16 10/25/16 10/25/16 04:47 04:47 10:15 WBC 17.5 H Hgb 10.6 L Hct 35.1 L MCV 71 L D MCH 21 L MCHC 30 L RDW 21.9 H Lymph % (Auto) [place] % (Auto) Lymph # [place] # Seg Neutrophils % Seg Neuts % (Manual) 92.0 H Lymphocytes % (Manual) 3.0 L Seg Neutrophils # Seg Neutrophils # Man 16.1 H Lymphocytes # (Manual) 0.5 L POC ABG pO2 76 L Carbon Dioxide 20 L BUN Glucose 209 H POC Glucose Calcium Iron Crossmatch 10/26/16 10/26/16 05:12 05:12 WBC 15.6 H Hgb 9.8 L Hct 31.8 L MCV 70 L MCH 22 L MCHC 31 L RDW 22.3 H Lymph % (Auto) 3.9 L [place] % (Auto) Lymph # 0.6 L [place] # 1.1 H Seg Neutrophils % 88.9 H Seg Neuts % (Manual) Lymphocytes % (Manual) Seg Neutrophils # 13.9 H Seg Neutrophils # Man Lymphocytes # (Manual) POC ABG pO2 Carbon Dioxide BUN 21 H Glucose 120 H POC Glucose Calcium Iron Crossmatch Chest x-ray: report reviewed (No acute cardiopulmonary process.)
[2016-10-27] MEDS: APRESOLINE IV PRN (00:49)
[2016-10-27 06:36] LABS: Basophils % (Auto) 0.1 % (0.0-1.8); Eosinophils % (Auto) 0.2 % (0.0-4.3); Hematocrit 33.2 % (35.5-45.6); Hemoglobin 10.1 gm/dl (11.8-15.2); Mean Corpuscular HGB Conc 30 % (32-34); Mean Corpuscular Volume 71 fl (84-94); Platelet Count 333 K/mm3 (140-440); Red Blood Count 4.69 M/mm3 (3.65-5.03); White Blood Count 13.1 K/mm3 (4.5-11.0)
[2016-10-27 07:00] LABS: Anion Gap 19 mmol/L; Blood Urea Nitrogen 20 mg/dL (9-20); Calcium 8.7 mg/dL (8.4-10.2); Carbon Dioxide 23 mmol/L (22-30); Chloride 101.1 mmol/L (98-107); Glucose 110 mg/dL (75-100); Potassium 4.4 mmol/L (3.6-5.0); Sodium 139 mmol/L (137-145)
[2016-10-27 07:05] LABS: Mean Corpuscular Hemoglobin 22 pg (28-32); Red Cell Distribution Width 23.2 % (13.2-15.2)
--- NOTE | 2016-10-27 08:40 | XRay Report ---
AP CHEST: History: Followup respiratory failure. AP view of the chest demonstrates a normal mediastinal and cardiac contour with clear lungs and normal bony and soft tissue structures. IMPRESSION: Normal AP chest.
[2016-10-27] MEDS: NORMODYNE PO SCH ×2 (10:06→22:25)
[2016-10-27] MEDS: PEPCID PO SCH (10:07)
[2016-10-27] MEDS: LACTATED RINGERS 1,000 ML IV SCH ×2 (10:11→22:25)
--- NOTE | 2016-10-27 10:19 | Progress Note ---
Assessment and Plan Cecal mass s/p right hemicolectomy Anemia Hypertension Recommendations: Resume lisinopril/hctz po when feasible. Otherwise, conservative cardiac management. Subjective Date of service: 10/27/16 Principal diagnosis: Cecal mass Interval history: Patient denies chest pain and shortness of breath. Objective Vital Signs Temp Pulse Pulse Pulse Pulse Resp BP 10/27/16 10:06 65 172/78 10/27/16 08:32 97.7 F 65 16 10/27/16 04:00 98.4 F 70 18 10/27/16 00:49 70 176/75 10/27/16 00:00 98.3 F 70 18 10/26/16 22:00 89 10/26/16 21:28 83 161/70 10/26/16 20:00 98.0 F 83 18 10/26/16 17:44 98.0 F 75 18 10/26/16 14:52 75 173/86 10/26/16 14:49 97.9 F 75 14 BP Pulse Ox 10/27/16 10:06 10/27/16 08:32 172/78 96 10/27/16 04:00 148/67 97 10/27/16 00:49 10/27/16 00:00 176/75 97 10/26/16 22:00 10/26/16 21:28 10/26/16 20:00 161/70 97 10/26/16 17:44 163/82 95 10/26/16 14:52 10/26/16 14:49 173/86 97 - Physical Examination General: No Apparent Distress HEENT: Positive: PERRL Neck: Positive: neck supple Cardiac: Positive: Reg Rate and Rhythm Lungs: Positive: Decreased Breath Sounds Neuro: Positive: Grossly Intact Extremities: Absent: edema - Labs and Meds CBC 10/27/16 Range/Units 05:27 WBC 13.1 H (4.5-11.0) K/mm3 RBC 4.69 (3.65-5.03) M/mm3 Hgb 10.1 L (11.8-15.2) gm/dl Hct 33.2 L (35.5-45.6) % Plt Count 333 (140-440) K/mm3 Lymph # 0.7 L (1.2-5.4) K/mm3 [place] # 1.0 H (0.0-0.8) K/mm3 Eos # 0.0 (0.0-0.4) K/mm3 Baso # 0.0 (0.0-0.1) K/mm3 Comprehensive Metabolic Panel 10/27/16 Range/Units 05:27 Sodium 139 (137-145) mmol/L Potassium 4.4 (3.6-5.0) mmol/L Chloride 101.1 (98-107) mmol/L Carbon Dioxide 23 (22-30) mmol/L BUN 20 (9-20) mg/dL Creatinine 1.0 (0.8-1.5) mg/dL Glucose 110 H (75-100) mg/dL Calcium 8.7 (8.4-10.2) mg/dL
--- NOTE | 2016-10-27 10:20 | Progress Note ---
Assessment and Plan Assessment and plan: 1. Large right colon mass in the area of the cecum. Patient s/p hemicolectomy with Dr. Jorgensen. Continue supportive care and pain control. 2. Anemia. Etiology is most likely acute blood loss anemia. Patient status post transfusion. H&H stable. 3. Infrarenal abdominal aortic aneurysm. Vascular surgery following. 4. Accelerated Hypertension. Continue labetalol to 400 mg twice a day. Continue hydralazine when necessary. 5. History of basal cell cancer and melanoma. 6. DVT prophylaxis. SCDs only given the anemia. History Interval history: 61-year-old man with a history of basal cell cancer, melanoma, hypertension comes emergency room with complaining of right lower quadrant pain since [place]od[place]. On his CT scan, he was found to have a large right lower quadrant mass about 8 x 9 x 12 cm and evidence of lymphadenopathy and mesenteric lesions. He also was found to have a questionable mass in the head of the pancreas and infrarenal abdominal aortic aneurysm. EGD confirmed a malignant cecal mass. Patient s/p hemicolectomy all 10/24/16. Pt. reports belching but no flatulence. No new issues overnight. Hospitalist Physical - Constitutional Vitals: Temp Pulse Resp BP Pulse Ox 97.7 F 65 16 172/78 96 10/27/16 08:32 10/27/16 10:06 10/27/16 08:32 10/27/16 10:06 10/27/16 08:32 General appearance: Present: no acute distress - EENT Eyes: Present: PERRL, EOM intact ENT: hearing intact, clear oral mucosa, dentition normal - Neck Neck: Present: supple, normal ROM - Respiratory Respiratory effort: normal Respiratory: bilateral: CTA - Cardiovascular Rhythm: regular Heart Sounds: Present: S1 & S2. Absent: gallop, rub - Extremities Extremities: no ischemia, No edema, Full ROM - Abdominal General gastrointestinal: soft, non-tender, non-distended, normal bowel sounds - Integumentary Integumentary: Present: clear, warm, dry - Neurologic Neurologic: CNII-XII intact, moves all extremities Results - Labs CBC & Chem 7: 10/27/16 05:27 10/27/16 05:27 Labs: Laboratory Last Values WBC 13.1 K/mm3 (4.5-11.0) H 10/27/16 05:27 RBC 4.69 M/mm3 (3.65-5.03) 10/27/16 05:27 Hgb 10.1 gm/dl (11.8-15.2) L 10/27/16 05:27 Hct 33.2 % (35.5-45.6) L 10/27/16 05:27 MCV 71 fl (84-94) L 10/27/16 05:27 MCH 22 pg (28-32) L 10/27/16 05:27 MCHC 30 % (32-34) L 10/27/16 05:27 RDW 23.2 % (13.2-15.2) H 10/27/16 05:27 Plt Count 333 K/mm3 (140-440) 10/27/16 05:27 Lymph % (Auto) 5.5 % (13.4-35.0) L 10/27/16 05:27 [place] % (Auto) 7.6 % (0.0-7.3) H 10/27/16 05:27 Eos % (Auto) 0.2 % (0.0-4.3) 10/27/16 05:27 Baso % (Auto) 0.1 % (0.0-1.8) 10/27/16 05:27 Lymph # 0.7 K/mm3 (1.2-5.4) L 10/27/16 05:27 [place] # 1.0 K/mm3 (0.0-0.8) H 10/27/16 05:27 Eos # 0.0 K/mm3 (0.0-0.4) 10/27/16 05:27 Baso # 0.0 K/mm3 (0.0-0.1) 10/27/16 05:27 Add Manual Diff Complete 10/25/16 04:47 Total Counted 100 10/25/16 04:47 Seg Neutrophils % 86.6 % (40.0-70.0) H 10/27/16 05:27 Seg Neuts % (Manual) 92.0 % (40.0-70.0) H 10/25/16 04:47 Band Neutrophils % 2.0 % 10/25/16 04:47 Lymphocytes % (Manual) 3.0 % (13.4-35.0) L 10/25/16 04:47 Reactive Lymphs % (Man) 0 % 10/25/16 04:47 Monocytes % (Manual) 2.0 % (0.0-7.3) 10/25/16 04:47 Eosinophils % (Manual) 0 % (0.0-4.3) 10/25/16 04:47 Basophils % (Manual) 0 % (0.0-1.8) 10/25/16 04:47 Metamyelocytes % 1.0 % 10/25/16 04:47 Myelocytes % 0 % 10/25/16 04:47 Promyelocytes % 0 % 10/25/16 04:47 Blast Cells % 0 % 10/25/16 04:47 Nucleated RBC % Not Reportable 10/25/16 04:47 Seg Neutrophils # 11.3 K/mm3 (1.8-7.7) H 10/27/16 05:27 Seg Neutrophils # Man 16.1 K/mm3 (1.8-7.7) H 10/25/16 04:47 Band Neutrophils # 0.4 K/mm3 10/25/16 04:47 Lymphocytes # (Manual) 0.5 K/mm3 (1.2-5.4) L 10/25/16 04:47 Abs React Lymphs (Man) 0.0 K/mm3 10/25/16 04:47 Monocytes # (Manual) 0.4 K/mm3 (0.0-0.8) 10/25/16 04:47 Eosinophils # (Manual) 0.0 K/mm3 (0.0-0.4) 10/25/16 04:47 Basophils # (Manual) 0.0 K/mm3 (0.0-0.1) 10/25/16 04:47 Metamyelocytes # 0.2 K/mm3 10/25/16 04:47 Myelocytes # 0.0 K/mm3 10/25/16 04:47 Promyelocytes # 0.0 K/mm3 10/25/16 04:47 Blast Cells # 0.0 K/mm3 10/25/16 04:47 WBC Morphology Not Reportable 10/25/16 04:47 Hypersegmented Neuts Not Reportable 10/25/16 04:47 Hyposegmented Neuts Not Reportable 10/25/16 04:47 Hypogranular Neuts Not Reportable 10/25/16 04:47 Smudge Cells Not Reportable 10/25/16 04:47 Toxic Granulation Not Reportable 10/25/16 04:47 Toxic Vacuolation Not Reportable 10/25/16 04:47 Dohle Bodies Not Reportable 10/25/16 04:47 Pelger-Huet Anomaly Not Reportable 10/25/16 04:47 Kendall Rods Not Reportable 10/25/16 04:47 Platelet Estimate Appears normal 10/25/16 04:47 Clumped Platelets Not Reportable 10/25/16 04:47 Plt Clumps, EDTA Not Reportable 10/25/16 04:47 Large Platelets Not Reportable 10/25/16 04:47 Giant Platelets Not Reportable 10/25/16 04:47 Platelet Satelliting Not Reportable 10/25/16 04:47 Plt Morphology Comment Not Reportable 10/25/16 04:47 RBC Morphology Not Reportable 10/25/16 04:47 Dimorphic RBCs Not Reportable 10/25/16 04:47 Polychromasia Rare 10/25/16 04:47 Hypochromasia 2+ 10/25/16 04:47 Poikilocytosis Not Reportable 10/25/16 04:47 Anisocytosis 1+ 10/25/16 04:47 Microcytosis Not Reportable 10/25/16 04:47 Macrocytosis Not Reportable 10/25/16 04:47 Spherocytes Not Reportable 10/25/16 04:47 Pappenheimer Bodies Not Reportable 10/25/16 04:47 Sickle Cells Not Reportable 10/25/16 04:47 Target Cells Not Reportable 10/25/16 04:47 Tear Drop Cells Not Reportable 10/25/16 04:47 Ovalocytes Few 10/25/16 04:47 Helmet Cells Not Reportable 10/25/16 04:47 [place] Bodies Not Reportable 10/25/16 04:47 [place] Rings Not Reportable 10/25/16 04:47 Timothy Cells Not Reportable 10/25/16 04:47 Bite Cells Not Reportable 10/25/16 04:47 Crenated Cell Not Reportable 10/25/16 04:47 Elliptocytes Not Reportable 10/25/16 04:47 Acanthocytes (Spur) Not Reportable 10/25/16 04:47 Rouleaux Not Reportable 10/25/16 04:47 Hemoglobin C Crystals Not Reportable 10/25/16 04:47 Schistocytes Not Reportable 10/25/16 04:47 Malaria parasites Not Reportable 10/25/16 04:47 Percent Retic 1.26 % (0.78-2.58) 10/21/16 20:08 Adrian Bodies Not Reportable 10/25/16 04:47 Hem Pathologist Commnt No 10/25/16 04:47 POC ABG pH 7.409 (7.35-7.45) 10/25/16 10:15 POC ABG pCO2 36.0 (35-45) 10/25/16 10:15 POC ABG pO2 76 (80-105) L 10/25/16 10:15 POC ABG HCO3 22.8 10/25/16 10:15 POC ABG Total CO2 24 10/25/16 10:15 POC ABG O2 Sat 95 10/25/16 10:15 POC ABG Base Excess -2 10/25/16 10:15 FiO2 21 % 10/25/16 10:15 Sodium 139 mmol/L (137-145) 10/27/16 05:27 Potassium 4.4 mmol/L (3.6-5.0) 10/27/16 05:27 Chloride 101.1 mmol/L (98-107) 10/27/16 05:27 Carbon Dioxide 23 mmol/L (22-30) 10/27/16 05:27 Anion Gap 19 mmol/L 10/27/16 05:27 BUN 20 mg/dL (9-20) 10/27/16 05:27 Creatinine 1.0 mg/dL (0.8-1.5) 10/27/16 05:27 Estimated GFR > 60 ml/min 10/27/16 05:27 BUN/Creatinine Ratio 20.00 % 10/27/16 05:27 Glucose 110 mg/dL (75-100) H 10/27/16 05:27 POC Glucose 119 (70-105) H 10/23/16 17:08 Calcium 8.7 mg/dL (8.4-10.2) 10/27/16 05:27 Iron 17 ug/dL (49-181) L 10/21/16 20:08 TIBC 276 mcg/dL (250-450) 10/21/16 20:08 % Saturation 2.98 % 10/20/16 13:06 Transferrin 288 mg/dl (180-329) 10/20/16 13:06 Ferritin 40.0 ng/mL (13.0-400.0) 10/21/16 20:08 Total Bilirubin 0.4 mg/dL (0.1-1.2) 10/20/16 13:06 AST 9 units/L (5-40) 10/20/16 13:06 ALT 7 units/L (7-56) 10/20/16 13:06 Alkaline Phosphatase 76 units/L (35-129) 10/20/16 13:06 Lactate Dehydrogenase 125 units/L (91-180) 10/21/16 20:08 Total Protein 7.6 g/dL (6.3-8.2) 10/20/16 13:06 Albumin 4.0 g/dL (3.9-5) 10/20/16 13:06 Albumin/Globulin Ratio 1.1 % 10/20/16 13:06 Lipase 19 units/L (13-60) 10/20/16 13:06 Carcinoembryonic Ag See scanned report 10/21/16 10:15 CA 19-9 Antigen 9 U/mL (<34) 10/21/16 10:15 Vitamin B12 471.6 pg/mL (211-911) 10/21/16 20:08 Folate 11.76 ng/mL (7.3-26.0) 10/21/16 20:08 TSH 1.870 mlU/mL (0.270-4.200) 10/21/16 10:15 Urine Color Yellow (Yellow) 10/20/16 16:05 Urine Turbidity Clear (Clear) 10/20/16 16:05 Urine pH 5.0 (5.0-7.0) 10/20/16 16:05 Ur Specific [place] 1.021 (1.003-1.030) 10/20/16 16:05 Urine Protein <15 mg/dl mg/dL (Negative) 10/20/16 16:05 Urine Glucose (UA) Neg mg/dL (Negative) 10/20/16 16:05 Urine Ketones Tr mg/dL (Negative) 10/20/16 16:05 Urine Blood Neg (Negative) 10/20/16 16:05 Urine Nitrite Neg (Negative) 10/20/16 16:05 Urine Bilirubin Neg (Negative) 10/20/16 16:05 Urine Urobilinogen < 2.0 mg/dL (<2.0) 10/20/16 16:05 Ur Leukocyte Esterase Tr (Negative) 10/20/16 16:05 Urine WBC (Auto) 3.0 /HPF (0.0-6.0) 10/20/16 16:05 Urine RBC (Auto) 3.0 /HPF (0.0-6.0) 10/20/16 16:05 U Epithel Cells (Auto) 1.0 /HPF (0-13.0) 10/20/16 16:05 Urine Mucus 1+ /HPF 10/20/16 16:05 Blood Type O POSITIVE 10/24/16 05:10 Antibody Screen Negative 10/24/16 05:10 Crossmatch See Detail 10/24/16 05:10
--- NOTE | 2016-10-27 11:25 | Progress Note ---
Assessment and Plan IMP: Doing well 3rd post op day. Poast op ileus resolved. PLAN: Full liquid diet. Subjective Date of service: 10/27/16 Patient Reports: Positive: no new complaints, feels better, voiding w/o difficulty, no flatus, no bowel movement Objective Vital Signs - 12hr 10/27/16 10/27/16 10/27/16 00:00 00:49 04:00 Temperature 98.3 F 98.4 F Pulse Rate 70 Pulse Rate [ From Monitor] Pulse Rate [ 70 70 Left Radial] Pulse Rate [ Right Radial] Respiratory 18 18 Rate Blood Pressure 176/75 Blood Pressure 176/75 148/67 [Left Arm] O2 Sat by Pulse 97 97 Oximetry 10/27/16 10/27/16 10/27/16 08:32 10:00 10:06 Temperature 97.7 F Pulse Rate 62 65 Pulse Rate [ 65 From Monitor] Pulse Rate [ Left Radial] Pulse Rate [ 65 Right Radial] Respiratory 16 16 Rate Blood Pressure 172/78 Blood Pressure 172/78 [Left Arm] O2 Sat by Pulse 96 96 Oximetry - Abdomen soft, not tender, bowel sounds normal, wound (dry, clear and healing well.) - Labs 10/27/16 05:27 10/27/16 05:27 Diabetes panel 10/27/16 Range/Units 05:27 Sodium 139 (137-145) mmol/L Potassium 4.4 (3.6-5.0) mmol/L Chloride 101.1 (98-107) mmol/L Carbon Dioxide 23 (22-30) mmol/L BUN 20 (9-20) mg/dL Creatinine 1.0 (0.8-1.5) mg/dL Glucose 110 H (75-100) mg/dL Calcium 8.7 (8.4-10.2) mg/dL Calcium panel 10/27/16 Range/Units 05:27 Calcium 8.7 (8.4-10.2) mg/dL Pituitary panel 10/27/16 Range/Units 05:27 Sodium 139 (137-145) mmol/L Potassium 4.4 (3.6-5.0) mmol/L Chloride 101.1 (98-107) mmol/L Carbon Dioxide 23 (22-30) mmol/L BUN 20 (9-20) mg/dL Creatinine 1.0 (0.8-1.5) mg/dL Glucose 110 H (75-100) mg/dL Calcium 8.7 (8.4-10.2) mg/dL Adrenal panel 10/27/16 Range/Units 05:27 Sodium 139 (137-145) mmol/L Potassium 4.4 (3.6-5.0) mmol/L Chloride 101.1 (98-107) mmol/L Carbon Dioxide 23 (22-30) mmol/L BUN 20 (9-20) mg/dL Creatinine 1.0 (0.8-1.5) mg/dL Glucose 110 H (75-100) mg/dL Calcium 8.7 (8.4-10.2) mg/dL
--- NOTE | 2016-10-27 16:32 | Progress Note ---
Assessment and Plan - Patient Problems (1) Mass of cecum Current Visit: Yes Status: Acute Plan to address problem: s/p resection. Continue with incentive spirometry. Discontinue daily CXRs, not indicated. VTE prophylaxis Wean off supplemental oxygen for O2 sats>92% Ambulate and increase activity (2) Iron deficiency anemia Current Visit: Yes Status: Acute Qualifiers: Iron deficiency anemia type: I Plan to address problem: As per primary service Subjective Date of service: 10/27/16 Principal diagnosis: Cecal mass Interval history: Sitting up in a chair. Tolerated his lunch. No abdominal pain. Mother and sister at the bedside. Denies any chest pain, no cough, no shortness of breath, no fevers or chills. No nausea or vomiting. No acute overnight events. Vitals, labs, medications, chart reviewed. Objective - Exam Narrative Exam: stable Vital Signs - 12hr 10/27/16 10/27/16 10/27/16 08:32 10:00 10:06 Temperature 97.7 F Pulse Rate 62 65 Pulse Rate [ 65 From Monitor] Pulse Rate [ 65 Right Radial] Respiratory 16 16 Rate Blood Pressure 172/78 Blood Pressure 172/78 [Left Arm] Blood Pressure [Right Arm] O2 Sat by Pulse 96 96 Oximetry 10/27/16 10/27/16 12:48 16:15 Temperature Pulse Rate Pulse Rate [ From Monitor] Pulse Rate [ 82 66 Right Radial] Respiratory Rate Blood Pressure Blood Pressure [Left Arm] Blood Pressure 166/74 143/63 [Right Arm] O2 Sat by Pulse Oximetry Constitutional: no acute distress, alert Eyes: non-icteric ENT: oropharynx moist Neck: supple, no lymphadenopathy, no JVD Effort: normal Ascultation: Bilateral: clear, diminished breath sounds Cardiovascular: regular rate and rhythm (S1,S2) Gastrointestinal: hypoactive bowel sounds, soft, tender, non-distended, other ( Tenderness at the incision site.) Integumentary: normal Extremities: no cyanosis, no edema, pink and warm, pulses normal, no ischemia or petechiae Neurologic: normal mental status, non-focal exam, pupils equal and round, motor strength normal and Psychiatric: mood appropriate, affect normal CBC and BMP: 10/28/16 05:15 10/28/16 05:15 ABG, PT/INR, D-dimer: ABG POC ABG pH 7.409 (7.35-7.45) 04/11/17 10:15 POC ABG pCO2 36.0 (35-45) 10/25/16 10:15 POC ABG pO2 76 (80-105) L 10/25/16 10:15 POC ABG HCO3 22.8 10/25/16 10:15 POC ABG Total CO2 24 10/25/16 10:15 POC ABG O2 Sat 95 10/25/16 10:15 Abnormal lab findings: Abnormal Labs 10/21/16 10/21/16 10/21/16 04: 04:17 10:15 WBC Hgb 7.5 L Hct 26.6 L MCV 65 L MCH 20 L MCHC 30 L RDW 17.2 H Lymph % (Auto) [place] % (Auto) 10.3 H Lymph # 1.1 L [place] # Seg Neutrophils % 74.0 H Seg Neuts % (Manual) Lymphocytes % (Manual) Seg Neutrophils # Seg Neutrophils # Man Lymphocytes # (Manual) POC ABG pO2 Carbon Dioxide BUN 23 H Glucose 128 H POC Glucose Calcium 8.3 L Iron Crossmatch See Detail 10/21/16 10/22/16 10/22/16 20:08 04:29 04:29 WBC Hgb 8.1 L Hct 26.6 L MCV 67 L MCH 20 L MCHC 31 L RDW 18.0 H Lymph % (Auto) [place] % (Auto) 11.0 H Lymph # [place] # 0.9 H Seg Neutrophils % 71.6 H Seg Neuts % (Manual) Lymphocytes % (Manual) Seg Neutrophils # Seg Neutrophils # Man Lymphocytes # (Manual) POC ABG pO2 Carbon Dioxide BUN Glucose 111 H POC Glucose Calcium [place] 17 L Crossmatch 10/23/16 10/23/16 10/23/16 04:25 04:25 17:08 WBC Hgb 8.2 L Hct 27.0 L MCV 67 L MCH 20 L MCHC 30 L RDW 18.6 H Lymph % (Auto) [place] % (Auto) 11.2 H Lymph # 1.1 L [place] # Seg Neutrophils % Seg Neuts % (Manual) Lymphocytes % (Manual) Seg Neutrophils # Seg Neutrophils # Man Lymphocytes # (Manual) POC ABG pO2 Carbon Dioxide BUN Glucose 114 H POC Glucose 119 H Calcium Iron Crossmatch 10/24/16 10/24/16 10/24/16 05:10 05:11 05:11 WBC Hgb 9.3 L Hct 31.2 L MCV 67 L MCH 20 L MCHC 30 L RDW 18.8 H Lymph % (Auto) 12.9 L [place] % (Auto) 10.8 H Lymph # 1.1 L [place] # 1.0 H Seg Neutrophils % 73.6 H Seg Neuts % (Manual) Lymphocytes % (Manual) Seg Neutrophils # Seg Neutrophils # Man Lymphocytes # (Manual) POC ABG pO2 Carbon Dioxide BUN Glucose 145 H POC Glucose Calcium Iron Crossmatch See Detail 10/25/16 10/25/16 10/25/16 04:47 04:47 10:15 WBC 17.5 H Hgb 10.6 L Hct 35.1 L MCV 71 L D MCH 21 L MCHC 30 L RDW 21.9 H Lymph % (Auto) [place] % (Auto) Lymph # [place] # Seg Neutrophils % Seg Neuts % (Manual) 92.0 H Lymphocytes % (Manual) 3.0 L Seg Neutrophils # Seg Neutrophils # Man 16.1 H Lymphocytes # (Manual) 0.5 L POC ABG pO2 76 L Carbon Dioxide 20 L BUN Glucose 209 H POC Glucose Calcium Iron Crossmatch 10/26/16 10/26/16 10/27/16 05:12 05:12 05:27 WBC 15.6 H 13.1 H Hgb 9.8 L 10.1 L Hct 31.8 L 33.2 L MCV 70 L 71 L MCH 22 L 22 L MCHC 31 L 30 L RDW 22.3 H 23.2 H Lymph % (Auto) 3.9 L 5.5 L [place] % (Auto) 7.6 H Lymph # 0.6 L 0.7 L [place] # 1.1 H 1.0 H Seg Neutrophils % 88.9 H 86.6 H Seg Neuts % (Manual) Lymphocytes % (Manual) Seg Neutrophils # 13.9 H 11.3 H Seg Neutrophils # Man Lymphocytes # (Manual) POC ABG pO2 Carbon Dioxide BUN 21 H Glucose 120 H POC Glucose Calcium Iron Crossmatch 10/27/16 05:27 WBC Hgb Hct MCV MCH MCHC RDW Lymph % (Auto) [place] % (Auto) Lymph # [place] # Seg Neutrophils % Seg Neuts % (Manual) Lymphocytes % (Manual) Seg Neutrophils # Seg Neutrophils # Man Lymphocytes # (Manual) POC ABG pO2 Carbon Dioxide BUN Glucose 110 H POC Glucose Calcium Iron Crossmatch Chest x-ray: report reviewed (No acute abnormality)
[2016-10-28 05:44] LABS: Basophils % (Auto) 0.2 % (0.0-1.8); Eosinophils % (Auto) 1.8 % (0.0-4.3); Hematocrit 31.1 % (35.5-45.6); Hemoglobin 9.6 gm/dl (11.8-15.2); Mean Corpuscular HGB Conc 31 % (32-34); Mean Corpuscular Volume 70 fl (84-94); Platelet Count 296 K/mm3 (140-440); Red Blood Count 4.41 M/mm3 (3.65-5.03); White Blood Count 8.2 K/mm3 (4.5-11.0)
[2016-10-28 05:50] LABS: Mean Corpuscular Hemoglobin 22 pg (28-32); Red Cell Distribution Width 22.7 % (13.2-15.2)
[2016-10-28 06:07] LABS: Anion Gap 17 mmol/L; Blood Urea Nitrogen 16 mg/dL (9-20); Calcium 8.3 mg/dL (8.4-10.2); Carbon Dioxide 23 mmol/L (22-30); Chloride 102.7 mmol/L (98-107); Glucose 122 mg/dL (75-100); Potassium 4.4 mmol/L (3.6-5.0); Sodium 138 mmol/L (137-145)
--- NOTE | 2016-10-28 08:14 | Progress Note ---
Assessment and Plan Cecal mass s/p surgery Awaiting final pathology No postoperative ECG changes 3.7 cm abdominal aortic aneurysm Systemic Hypertension Recommendations: Continue labetalol BP management per primary team Will sign off Subjective Date of service: 10/28/16 Principal diagnosis: Cecal mass Interval history: Patient is doing well from a cardiac standpoint. He denies chest pain or shortness of breath Objective Vital Signs Temp Pulse Pulse Pulse Pulse Resp BP 10/28/16 06:58 97.9 F 59 L 20 10/28/16 00:00 98.4 F 55 L 20 10/27/16 20:00 98.1 F 66 20 10/27/16 16:15 66 10/27/16 12:48 82 10/27/16 10:06 65 172/78 10/27/16 10:00 62 65 16 10/27/16 08:32 97.7 F 65 16 BP BP Pulse Ox 10/28/16 06:58 140/70 98 10/28/16 00:00 135/61 98 10/27/16 20:00 165/87 96 10/27/16 16:15 143/63 10/27/16 12:48 166/74 10/27/16 10:06 10/27/16 10:00 96 10/27/16 08:32 172/78 96 - Physical Examination General: No Apparent Distress HEENT: Positive: PERRL Neck: Positive: neck supple Cardiac: Positive: Reg Rate and Rhythm Lungs: Positive: Normal Exam Neuro: Positive: Grossly Intact Abdomen: Positive: Soft Skin: Positive: Clear Extremities: Absent: edema - Labs and Meds CBC 10/28/16 Range/Units 05:15 WBC 8.2 (4.5-11.0) K/mm3 RBC 4.41 (3.65-5.03) M/mm3 Hgb 9.6 L (11.8-15.2) gm/dl Hct 31.1 L (35.5-45.6) % Plt Count 296 (140-440) K/mm3 Lymph # 0.8 L (1.2-5.4) K/mm3 [place] # 0.8 (0.0-0.8) K/mm3 Eos # 0.1 (0.0-0.4) K/mm3 Baso # 0.0 (0.0-0.1) K/mm3 Comprehensive Metabolic Panel 10/28/16 Range/Units 05:15 Sodium 138 (137-145) mmol/L Potassium 4.4 (3.6-5.0) mmol/L Chloride 102.7 (98-107) mmol/L Carbon Dioxide 23 (22-30) mmol/L BUN 16 (9-20) mg/dL Creatinine 1.0 (0.8-1.5) mg/dL Glucose 122 H (75-100) mg/dL Calcium 8.3 L (8.4-10.2) mg/dL
--- NOTE | 2016-10-28 08:21 | XRay Report ---
AP CHEST: HISTORY: Followup respiratory failure AP view of the chest demonstrates a normal mediastinal and cardiac contour with clear lungs and normal bony and soft tissue structures. IMPRESSION: Unremarkable AP chest. No significant change since yesterday's exam.
[2016-10-28] MEDS: NORMODYNE PO SCH ×2 (09:47→21:54)
[2016-10-28] MEDS: PEPCID PO SCH (09:47)
[2016-10-28] MEDS: MORPHINE IV PRN ×3 (09:48→17:15)
--- NOTE | 2016-10-28 15:46 | Progress Note ---
Assessment and Plan - Patient Problems (1) Mass of cecum Current Visit: Yes Status: Acute Plan to address problem: s/p resection. Continue with incentive spirometry. Discontinue daily CXRs, not indicated. VTE prophylaxis Wean off supplemental oxygen for O2 sats>92% Ambulate and increase activity (2) Iron deficiency anemia Current Visit: Yes Status: Acute Qualifiers: Iron deficiency anemia type: I Plan to address problem: As per primary service Subjective Date of service: 10/28/16 Principal diagnosis: Cecal mass Interval history: Sitting up in a chair. Tolerated his lunch. No abdominal pain. Mother and sister at the bedside. Denies any chest pain, no cough, no shortness of breath, no fevers or chills. No nausea or vomiting. No acute overnight events. Vitals, labs, medications, chart reviewed. No new events overnight. Objective - Exam Narrative Exam: stable Vital Signs - 12hr 10/28/16 10/28/16 10/28/16 06:58 08:42 09:47 Temperature 97.9 F 97.7 F Pulse Rate 60 Pulse Rate [ 59 L 60 Left Radial] Respiratory 20 18 Rate Blood Pressure 140/70 Blood Pressure 140/70 164/72 [Right Arm] O2 Sat by Pulse 98 94 Oximetry 10/28/16 10:00 Temperature Pulse Rate 60 Pulse Rate [ Left Radial] Respiratory Rate Blood Pressure Blood Pressure [Right Arm] O2 Sat by Pulse Oximetry Constitutional: no acute distress, alert Eyes: non-icteric ENT: oropharynx moist Neck: supple, no lymphadenopathy, no JVD Effort: normal Ascultation: Bilateral: clear, diminished breath sounds Cardiovascular: regular rate and rhythm (S1,S2) Gastrointestinal: normoactive bowel sounds, hypoactive bowel sounds, soft, non- tender, tender, non-distended, other (Tenderness at the incision site.) Integumentary: normal Extremities: no cyanosis, no edema, pink and warm, pulses normal, no ischemia or petechiae Neurologic: normal mental status, non-focal exam, pupils equal and round, motor strength normal and Psychiatric: mood appropriate, affect normal CBC and BMP: 10/28/16 05:15 10/28/16 05:15 ABG, PT/INR, D-dimer: ABG POC ABG pH 7.409 (7.35-7.45) 10/25/16 10:15 POC ABG pCO2 36.0 (35-45) 10/25/16 10:15 POC ABG pO2 76 (80-105) L 10/25/16 10:15 POC ABG HCO3 22.8 10/25/16 10:15 POC ABG Total CO2 24 10/25/16 10:15 POC ABG O2 Sat 95 10/25/16 10:15 Abnormal lab findings: Abnormal Labs 10/21/16 10/21/16 10/21/16 04: 04:17 10:15 WBC Hgb 7.5 L Hct 26.6 L MCV 65 L MCH 20 L MCHC 30 L RDW 17.2 H Lymph % (Auto) Crenshaw % (Auto) 10.3 H Lymph # 1.1 L C[place]shaw # Seg Neutrophils % 74.0 H Seg Neuts % (Manual) Lymphocytes % (Manual) Seg Neutrophils # Seg Neutrophils # Man Lymphocytes # (Manual) POC ABG pO2 Carbon Dioxide BUN 23 H Glucose 128 H POC Glucose Calcium 8.3 L Iron Crossmatch See Detail 10/21/16 10/22/16 10/22/16 20:08 04:29 04:29 WBC Hgb 8.1 L Hct 26.6 L MCV 67 L MCH 20 L MCHC 31 L RDW 18.0 H Lymph % (Auto) Crenshaw % (Auto) 11.0 H Lymph # C[place]shaw # 0.9 H Seg Neutrophils % 71.6 H Seg Neuts % (Manual) Lymphocytes % (Manual) Seg Neutrophils # Seg Neutrophils # Man Lymphocytes # (Manual) POC ABG pO2 Carbon Dioxide BUN Glucose 111 H POC Glucose Calcium Iron 17 L Crossmatch 10/23/16 10/23/16 10/23/16 04:25 04:25 17:08 WBC Hgb 8.2 L Hct 27.0 L MCV 67 L MCH 20 L MCHC 30 L RDW 18.6 H Lymph % (Auto) [place] % (Auto) 11.2 H Lymph # 1.1 L [place] # Seg Neutrophils % Seg Neuts % (Manual) Lymphocytes % (Manual) Seg Neutrophils # Seg Neutrophils # Man Lymphocytes # (Manual) POC ABG pO2 Carbon Dioxide BUN Glucose 114 H POC Glucose 119 H Calcium Iron Crossmatch 10/24/16 10/24/16 10/24/16 05:10 05:11 05:11 WBC Hgb 9.3 L Hct 31.2 L MCV 67 L MCH 20 L MCHC 30 L RDW 18.8 H Lymph % (Auto) 12.9 L [place] % (Auto) 10.8 H Lymph # 1.1 L [place] # 1.0 H Seg Neutrophils % 73.6 H Seg Neuts % (Manual) Lymphocytes % (Manual) Seg Neutrophils # Seg Neutrophils # Man Lymphocytes # (Manual) POC ABG pO2 Carbon Dioxide BUN Glucose 145 H POC Glucose Calcium Iron Crossmatch See Detail 10/25/16 10/25/16 10/25/16 04:47 04:47 10:15 WBC 17.5 H Hgb 10.6 L Hct 35.1 L MCV 71 L D MCH 21 L MCHC 30 L RDW 21.9 H Lymph % (Auto) [place] % (Auto) Lymph # C[place]shaw # Seg Neutrophils % Seg Neuts % (Manual) 92.0 H Lymphocytes % (Manual) 3.0 L Seg Neutrophils # Seg Neutrophils # Man 16.1 H Lymphocytes # (Manual) 0.5 L POC ABG pO2 76 L Carbon Dioxide 20 L BUN Glucose 209 H POC Glucose Calcium Iron Crossmatch 10/26/16 10/26/16 10/27/16 05:12 05:12 05:27 WBC 15.6 H 13.1 H Hgb 9.8 L 10.1 L Hct 31.8 L 33.2 L MCV 70 L 71 L MCH 22 L 22 L MCHC 31 L 30 L RDW 22.3 H 23.2 H Lymph % (Auto) 3.9 L 5.5 L [place] % (Auto) 7.6 H Lymph # 0.6 L 0.7 L [place] # 1.1 H 1.0 H Seg Neutrophils % 88.9 H 86.6 H Seg Neuts % (Manual) Lymphocytes % (Manual) Seg Neutrophils # 13.9 H 11.3 H Seg Neutrophils # Man Lymphocytes # (Manual) POC ABG pO2 Carbon Dioxide BUN 21 H Glucose 120 H POC Glucose Calcium Iron Crossmatch 10/27/16 10/28/16 10/28/16 05:27 05:15 05:15 WBC Hgb 9.6 L Hct 31.1 L MCV 70 L MCH 22 L MCHC 31 L RDW 22.7 H Lymph % (Auto) 9.2 L [place] % (Auto) 9.2 H Lymph # 0.8 L [place] # Seg Neutrophils % 79.6 H Seg Neuts % (Manual) Lymphocytes % (Manual) Seg Neutrophils # Seg Neutrophils # Man Lymphocytes # (Manual) POC ABG pO2 Carbon Dioxide BUN Glucose 110 H 122 H POC Glucose Calcium 8.3 L Iron Crossmatch
--- NOTE | 2016-10-28 17:41 | Progress Note ---
Assessment and Plan - Patient Problems (1) Mass of cecum Current Visit: Yes Status: Acute Plan to address problem: Had resection.Post op doing well.Tolerating food.Had BM Will defer to Surgery reg discharge. (2) HTN (hypertension) Current Visit: Yes Status: Chronic Qualifiers: Hypertension type: essential hypertension Qualified Code(s): I10 - Essential (primary) hypertension Plan to address problem: Cont Labetolol (3) Discharge planning issues Current Visit: Yes Status: Acute Plan to address problem: Probable discharge in a day or 2 after d/w surgery History Interval history: Doing well.Able to eat.Had a BM.No abd pain Hospitalist Physical - Physical exam Narrative exam: Comfortable - Constitutional Vitals: Temp Pulse Resp BP Pulse Ox 97.7 F 60 18 140/70 94 10/28/16 08:42 10/28/16 10:00 10/28/16 08:42 10/28/16 09:47 10/28/16 08:42 General appearance: Present: no acute distress - EENT Eyes: Present: PERRL, EOM intact ENT: hearing intact, clear oral mucosa - Neck Neck: Present: supple, normal ROM - Respiratory Respiratory effort: normal Respiratory: bilateral: CTA - Cardiovascular Heart rate: 70 Rhythm: regular - Extremities Extremities: no ischemia, pulses intact, pulses symmetrical Peripheral Pulses: within normal limits - Abdominal General gastrointestinal: deferred, soft, non-tender, normal bowel sounds - Integumentary Integumentary: Present: clear, warm, dry - Psychiatric Psychiatric: appropriate mood/affect, intact judgment & insight, memory intact, cooperative - Neurologic Neurologic: CNII-XII intact, moves all extremities, gait normal - Allied Health Allied health notes reviewed: nursing, PT, case management Results - Labs CBC & Chem 7: 10/28/16 05:15 10/28/16 05:15 Labs: Laboratory Last Values WBC 8.2 K/mm3 (4.5-11.0) 10/28/16 05:15 RBC 4.41 M/mm3 (3.65-5.03) 10/28/16 05:15 Hgb 9.6 gm/dl (11.8-15.2) L 10/28/16 05:15 Hct 31.1 % (35.5-45.6) L 10/28/16 05:15 MCV 70 fl (84-94) L 10/28/16 05:15 MCH 22 pg (28-32) L 10/28/16 05:15 MCHC 31 % (32-34) L 10/28/16 05:15 RDW 22.7 % (13.2-15.2) H 10/28/16 05:15 Plt Count 296 K/mm3 (140-440) 10/28/16 05:15 Lymph % (Auto) 9.2 % (13.4-35.0) L 10/28/16 05:15 [place] % (Auto) 9.2 % (0.0-7.3) H 10/28/16 05:15 Eos % (Auto) 1.8 % (0.0-4.3) 10/28/16 05:15 Baso % (Auto) 0.2 % (0.0-1.8) 10/28/16 05:15 Lymph # 0.8 K/mm3 (1.2-5.4) L 10/28/16 05:15 [place] # 0.8 K/mm3 (0.0-0.8) 10/28/16 05:15 Eos # 0.1 K/mm3 (0.0-0.4) 10/28/16 05:15 Baso # 0.0 K/mm3 (0.0-0.1) 10/28/16 05:15 Add Manual Diff Complete 10/25/16 04:47 Total Counted 100 10/25/16 04:47 Seg Neutrophils % 79.6 % (40.0-70.0) H 10/28/16 05:15 Seg Neuts % (Manual) 92.0 % (40.0-70.0) H 10/25/16 04:47 Band Neutrophils % 2.0 % 10/25/16 04:47 Lymphocytes % (Manual) 3.0 % (13.4-35.0) L 10/25/16 04:47 Reactive Lymphs % (Man) 0 % 10/25/16 04:47 Monocytes % (Manual) 2.0 % (0.0-7.3) 10/25/16 04:47 Eosinophils % (Manual) 0 % (0.0-4.3) 10/25/16 04:47 Basophils % (Manual) 0 % (0.0-1.8) 10/25/16 04:47 Metamyelocytes % 1.0 % 10/25/16 04:47 Myelocytes % 0 % 10/25/16 04:47 Promyelocytes % 0 % 10/25/16 04:47 Blast Cells % 0 % 10/25/16 04:47 Nucleated RBC % Not Reportable 10/25/16 04:47 Seg Neutrophils # 6.5 K/mm3 (1.8-7.7) 10/28/16 05:15 Seg Neutrophils # Man 16.1 K/mm3 (1.8-7.7) H 10/25/16 04:47 Band Neutrophils # 0.4 K/mm3 10/25/16 04:47 Lymphocytes # (Manual) 0.5 K/mm3 (1.2-5.4) L 10/25/16 04:47 Abs React Lymphs (Man) 0.0 K/mm3 10/25/16 04:47 Monocytes # (Manual) 0.4 K/mm3 (0.0-0.8) 10/25/16 04:47 Eosinophils # (Manual) 0.0 K/mm3 (0.0-0.4) 10/25/16 04:47 Basophils # (Manual) 0.0 K/mm3 (0.0-0.1) 10/25/16 04:47 Metamyelocytes # 0.2 K/mm3 10/25/16 04:47 Myelocytes # 0.0 K/mm3 10/25/16 04:47 Promyelocytes # 0.0 K/mm3 10/25/16 04:47 Blast Cells # 0.0 K/mm3 10/25/16 04:47 WBC Morphology Not Reportable 10/25/16 04:47 Hypersegmented Neuts Not Reportable 10/25/16 04:47 Hyposegmented Neuts Not Reportable 10/25/16 04:47 Hypogranular Neuts Not Reportable 10/25/16 04:47 Smudge Cells Not Reportable 10/25/16 04:47 Toxic Granulation Not Reportable 10/25/16 04:47 Toxic Vacuolation Not Reportable 10/25/16 04:47 Dohle Bodies Not Reportable 10/25/16 04:47 Pelger-Huet Anomaly Not Reportable 10/25/16 04:47 Kendall Rods Not Reportable 10/25/16 04:47 Platelet Estimate Appears normal 10/25/16 04:47 Clumped Platelets Not Reportable 10/25/16 04:47 Plt Clumps, EDTA Not Reportable 10/25/16 04:47 Large Platelets Not Reportable 10/25/16 04:47 Giant Platelets Not Reportable 10/25/16 04:47 Platelet Satelliting Not Reportable 10/25/16 04:47 Plt Morphology Comment Not Reportable 10/25/16 04:47 RBC Morphology Not Reportable 10/25/16 04:47 Dimorphic RBCs Not Reportable 10/25/16 04:47 Polychromasia Rare 10/25/16 04:47 Hypochromasia 2+ 10/25/16 04:47 Poikilocytosis Not Reportable 10/25/16 04:47 Anisocytosis 1+ 10/25/16 04:47 Microcytosis Not Reportable 10/25/16 04:47 Macrocytosis Not Reportable 10/25/16 04:47 Spherocytes Not Reportable 10/25/16 04:47 Pappenheimer Bodies Not Reportable 10/25/16 04:47 Sickle Cells Not Reportable 10/25/16 04:47 Target Cells Not Reportable 10/25/16 04:47 Tear Drop Cells Not Reportable 10/25/16 04:47 Ovalocytes Few 10/25/16 04:47 Helmet Cells Not Reportable 10/25/16 04:47 [place] Bodies Not Reportable 10/25/16 04:47 Kenna Rings Not Reportable 10/25/16 04:47 Duke Cells Not Reportable 10/25/16 04:47 Bite Cells Not Reportable 10/25/16 04:47 Crenated Cell Not Reportable 10/25/16 04:47 Elliptocytes Not Reportable 10/25/16 04:47 Acanthocytes (Spur) Not Reportable 10/25/16 04:47 Rouleaux Not Reportable 10/25/16 04:47 Hemoglobin C Crystals Not Reportable 10/25/16 04:47 Schistocytes Not Reportable 10/25/16 04:47 Malaria parasites Not Reportable 10/25/16 04:47 Percent Retic 1.26 % (0.78-2.58) 10/21/16 20:08 Adrian Bodies Not Reportable 10/25/16 04:47 Hem Pathologist Commnt No 10/25/16 04:47 POC ABG pH 7.409 (7.35-7.45) 10/25/16 10:15 POC ABG pCO2 36.0 (35-45) 10/25/16 10:15 POC ABG pO2 76 (80-105) L 10/25/16 10:15 POC ABG HCO3 22.8 10/25/16 10:15 POC ABG Total CO2 24 10/25/16 10:15 POC ABG O2 Sat 95 10/25/16 10:15 POC ABG Base Excess -2 10/25/16 10:15 FiO2 21 % 10/25/16 10:15 Sodium 138 mmol/L (137-145) 10/28/16 05:15 Potassium 4.4 mmol/L (3.6-5.0) 10/28/16 05:15 Chloride 102.7 mmol/L (98-107) 10/28/16 05:15 Carbon Dioxide 23 mmol/L (22-30) 10/28/16 05:15 Anion Gap 17 mmol/L 10/28/16 05:15 BUN 16 mg/dL (9-20) 10/28/16 05:15 Creatinine 1.0 mg/dL (0.8-1.5) 10/28/16 05:15 Estimated GFR > 60 ml/min 10/28/16 05:15 BUN/Creatinine Ratio 16.00 % 10/28/16 05:15 Glucose 122 mg/dL (75-100) H 10/28/16 05:15 POC Glucose 119 (70-105) H 10/23/16 17:08 Calcium 8.3 mg/dL (8.4-10.2) L 10/28/16 05:15 Iron 17 ug/dL (49-181) L 10/21/16 20:08 TIBC 276 mcg/dL (250-450) 10/21/16 20:08 % Saturation 2.98 % 10/20/16 13:06 Transferrin 288 mg/dl (180-329) 10/20/16 13:06 Ferritin 40.0 ng/mL (13.0-400.0) 10/21/16 20:08 Total Bilirubin 0.4 mg/dL (0.1-1.2) 10/20/16 13:06 AST 9 units/L (5-40) 10/20/16 13:06 ALT 7 units/L (7-56) 10/20/16 13:06 Alkaline Phosphatase 76 units/L (35-129) 10/20/16 13:06 Lactate Dehydrogenase 125 units/L (91-180) 10/21/16 20:08 Total Protein 7.6 g/dL (6.3-8.2) 10/20/16 13:06 Albumin 4.0 g/dL (3.9-5) 10/20/16 13:06 Albumin/Globulin Ratio 1.1 % 10/20/16 13:06 Lipase 19 units/L (13-60) 10/20/16 13:06 Carcinoembryonic Ag See scanned report 10/21/16 10:15 CA 19-9 Antigen 9 U/mL (<34) 10/21/16 10:15 Vitamin B12 471.6 pg/mL (211-911) 10/21/16 20:08 Folate 11.76 ng/mL (7.3-26.0) 10/21/16 20:08 TSH 1.870 mlU/mL (0.270-4.200) 10/21/16 10:15 Urine Color Yellow (Yellow) 10/20/16 16:05 Urine Turbidity Clear (Clear) 10/20/16 16:05 Urine pH 5.0 (5.0-7.0) 10/20/16 16:05 Ur Specific Ivel 1.021 (1.003-1.030) 10/20/16 16:05 Urine Protein <15 mg/dl mg/dL (Negative) 10/20/16 16:05 Urine Glucose (UA) Neg mg/dL (Negative) 10/20/16 16:05 Urine Ketones Tr mg/dL (Negative) 10/20/16 16:05 Urine Blood Neg (Negative) 10/20/16 16:05 Urine Nitrite Neg (Negative) 10/20/16 16:05 Urine Bilirubin Neg (Negative) 10/20/16 16:05 Urine Urobilinogen < 2.0 mg/dL (<2.0) 10/20/16 16:05 Ur Leukocyte Esterase Tr (Negative) 10/20/16 16:05 Urine WBC (Auto) 3.0 /HPF (0.0-6.0) 10/20/16 16:05 Urine RBC (Auto) 3.0 /HPF (0.0-6.0) 10/20/16 16:05 U Epithel Cells (Auto) 1.0 /HPF (0-13.0) 10/20/16 16:05 Urine Mucus 1+ /HPF 10/20/16 16:05 Blood Type O POSITIVE 10/24/16 05:10 Antibody Screen Negative 10/24/16 05:10 Crossmatch See Detail 10/24/16 05:10 Short CBC 10/28/16 Range/Units 05:15 WBC 8.2 (4.5-11.0) K/mm3 Hgb 9.6 L (11.8-15.2) gm/dl Hct 31.1 L (35.5-45.6) % Plt Count 296 (140-440) K/mm3 BMP 10/28/16 05:15 Sodium 138 Potassium 4.4 Chloride 102.7 Carbon Dioxide 23 BUN 16 Creatinine 1.0 Glucose 122 H Calcium 8.3 L
--- NOTE | 2016-10-28 18:15 | Hem/Onc Progress Note ---
Assessment and Plan path reviewed. positive for malignancy will need chemo pt also has omental deposits path + for stephanie will get pet as op for baseline pt aware pt's mom has my info f/u with me in 10 days Subjective Date of service: 10/28/16 Interval history: Patient feels fair. Objective - Exam Narrative Exam: stable - Constitutional Vitals: Last Vital Signs Temp 97.7 F 10/28/16 08:42 Pulse 60 10/28/16 10:00 Resp 18 10/28/16 08:42 BP 140/70 10/28/16 09:47 Pulse Ox 94 10/28/16 08:42 General appearance: no acute distress Performance status: 2- selfcare, ambulatory - Respiratory Respiratory effort: Positive: normal Respiratory: bilateral: CTA - Cardiovascular Rhythm: regular Extremities: No edema - Gastrointestinal General gastrointestinal: Present: soft (post op) - Labs Lab Results: Laboratory Results - last 24 hr 10/28/16 10/28/16 05:15 05:15 WBC 8.2 RBC 4.41 Hgb 9.6 L Hct 31.1 L MCV 70 L MCH 22 L MCHC 31 L RDW 22.7 H Plt Count 296 Lymph % (Auto) 9.2 L Davis % (Auto) 9.2 H Eos % (Auto) 1.8 Baso % (Auto) 0.2 Lymph # 0.8 L Davis # 0.8 Eos # 0.1 Baso # 0.0 Seg Neutrophils % 79.6 H Seg Neutrophils # 6.5 Sodium 138 Potassium 4.4 Chloride 102.7 Carbon Dioxide 23 Anion Gap 17 BUN 16 Creatinine 1.0 Estimated GFR > 60 BUN/Creatinine Ratio 16.00 Glucose 122 H Calcium 8.3 L
[2016-10-29 06:33] LABS: Basophils % (Auto) 0.6 % (0.0-1.8); Eosinophils % (Auto) 3.8 % (0.0-4.3); Hemoglobin 9.9 gm/dl (11.8-15.2); Mean Corpuscular HGB Conc 31 % (32-34); Platelet Count 297 K/mm3 (140-440); Red Blood Count 4.57 M/mm3 (3.65-5.03); White Blood Count 7.6 K/mm3 (4.5-11.0)
[2016-10-29 06:38] LABS: Mean Corpuscular Hemoglobin 22 pg (28-32); Mean Corpuscular Volume 70 fl (84-94); Red Cell Distribution Width 22.7 % (13.2-15.2)
[2016-10-29 06:41] LABS: Alanine Aminotransferase 9 units/L (7-56); Albumin 2.8 g/dL (3.9-5); Alkaline Phosphatase 51 units/L (35-129); Anion Gap 18 mmol/L; Bilirubin,Total 0.3 mg/dL (0.1-1.2); Blood Urea Nitrogen 12 mg/dL (9-20); Calcium 8.3 mg/dL (8.4-10.2); Carbon Dioxide 23 mmol/L (22-30); Chloride 103.2 mmol/L (98-107); Glucose 121 mg/dL (75-100); Potassium 4.2 mmol/L (3.6-5.0); Sodium 140 mmol/L (137-145); Total Protein 5.5 g/dL (6.3-8.2)
--- NOTE | 2016-10-29 09:08 | Progress Note ---
Assessment and Plan IMP: Doing well after right hemicolectomy. PLAN: Reg diet. Home per hospitalist. Subjective Date of service: 10/29/16 Patient Reports: Positive: no new complaints, feels better, tolerating liquids well, flatus, bowel movement Objective Vital Signs - 12hr 10/29/16 10/29/16 01:36 06:25 Temperature 98 F 98.5 F Pulse Rate [ 56 L 63 Left Radial] Respiratory 20 21 Rate Blood Pressure 133/69 136/72 [Right Arm] O2 Sat by Pulse 96 98 Oximetry - Abdomen soft, not tender, bowel sounds normal, wound (healing well.) - Labs 10/29/16 04:44 10/29/16 04:44 Diabetes panel 10/29/16 Range/Units 04:44 Sodium 140 (137-145) mmol/L Potassium 4.2 (3.6-5.0) mmol/L Chloride 103.2 (98-107) mmol/L Carbon Dioxide 23 (22-30) mmol/L BUN 12 (9-20) mg/dL Creatinine 1.0 (0.8-1.5) mg/dL Glucose 121 H (75-100) mg/dL Calcium 8.3 L (8.4-10.2) mg/dL AST 7 (5-40) units/L ALT 9 (7-56) units/L Alkaline Phosphatase 51 (35-129) units/L Total Protein 5.5 L (6.3-8.2) g/dL Albumin 2.8 L (3.9-5) g/dL Calcium panel 10/29/16 Range/Units 04:44 Calcium 8.3 L (8.4-10.2) mg/dL Albumin 2.8 L (3.9-5) g/dL Pituitary panel 10/29/16 Range/Units 04:44 Sodium 140 (137-145) mmol/L Potassium 4.2 (3.6-5.0) mmol/L Chloride 103.2 (98-107) mmol/L Carbon Dioxide 23 (22-30) mmol/L BUN 12 (9-20) mg/dL Creatinine 1.0 (0.8-1.5) mg/dL Glucose 121 H (75-100) mg/dL Calcium 8.3 L (8.4-10.2) mg/dL Adrenal panel 04/15/17 Range/Units 04:44 Sodium 140 (137-145) mmol/L Potassium 4.2 (3.6-5.0) mmol/L Chloride 103.2 (98-107) mmol/L Carbon Dioxide 23 (22-30) mmol/L BUN 12 (9-20) mg/dL Creatinine 1.0 (0.8-1.5) mg/dL Glucose 121 H (75-100) mg/dL Calcium 8.3 L (8.4-10.2) mg/dL Total Bilirubin 0.3 (0.1-1.2) mg/dL AST 7 (5-40) units/L ALT 9 (7-56) units/L Alkaline Phosphatase 51 (35-129) units/L Total Protein 5.5 L (6.3-8.2) g/dL Albumin 2.8 L (3.9-5) g/dL
--- NOTE | 2016-10-29 09:10 | Event Note ---
Spoke to his mother and patient and explained wound care. F/U in office in a week.
[2016-10-29 09:49] VITALS: BP 168/70
--- NOTE | 2016-10-29 14:21 | Discharge Summary ---
Providers - Providers Date of Admission: 10/20/16 23:08 Date of discharge: 10/29/16 Attending physician: ROSHAN BARROW 10/21/16 00:12 Consult to Physician [CONS] Routine Consulting Provider: FELTON COOPER Reason For Exam: cc Notified:: workers compensation legal secretary pl call 10/21/16 06:17 Consult to Physician [CONS] Routine Consulting Provider: JONE CHRISTIANSEN Reason For Exam: COLON CA Notified:: workers compensation legal secretary pl call 10/21/16 09:09 Consult to Physician [CONS] Routine Consulting Provider: KATHERINE CHRISTIE Reason For Exam: colon mass Place consult to:: OFFICE Notified:: YES Phone number called:: [phone] If yes, spoke with:: ROSE Time called:: 09:18 10/26/16 13:09 Consult to Wound/ET Nurse [CONS] Routine Reason For Exam: wound eval, dressings and Telfa bari change. 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 Hospital course: From Dr Carmona--- path reviewed. positive for malignancy will need chemo pt also has omental deposits path + for malig will get pet as op for baseline pt aware pt's mom has my info f/u with me in 10 days Disposition: DISCHARGED TO HOME OR SELFCARE - Discharge Diagnoses (1) Mass of cecum Status: Acute Comment: Malignant-f/u with Dr Carmona (2) HTN (hypertension) Status: Chronic Qualifiers: Hypertension type: essential hypertension Qualified Code(s): I10 - Essential (primary) hypertension Comment: Cont antihypertensives (3) Discharge planning issues Status: Acute Core Measure Documentation - Palliative Care Palliative Care/ Comfort Measures: Not Applicable - Core Measures Any of the following diagnoses?: none Exam - Physical Exam Narrative exam: Comfortable - Constitutional Vitals: Temp Pulse Resp BP Pulse Ox 98.2 F 56 L 18 168/70 99 10/29/16 09:48 10/29/16 09:48 10/29/16 09:48 10/29/16 09:48 10/29/16 09:48 General appearance: Present: no acute distress, well-nourished - EENT Eyes: Present: PERRL ENT: hearing intact, clear oral mucosa - Neck Neck: Present: supple, normal ROM - Respiratory Respiratory effort: normal Respiratory: bilateral: CTA - Cardiovascular Heart Sounds: Present: S1 & S2. Absent: rub, click - Extremities Extremities: pulses symmetrical, No edema Peripheral Pulses: within normal limits - Abdominal General gastrointestinal: Present: soft, non-tender, non-distended, normal bowel sounds Male genitourinary: Present: normal - Integumentary Integumentary: Present: clear, warm, dry - Musculoskeletal Musculoskeletal: gait normal, strength equal bilaterally - Psychiatric Psychiatric: appropriate mood/affect, intact judgment & insight - Neurologic Neurologic: CNII-XII intact, moves all extremities - Allied Health Allied health notes reviewed: nursing, case management Plan Activity: no restrictions Diet: low salt [facility]Outside] - 11/10/16 1:30 pm PRIMARY CAREMD [Primary Care Provider] - 3-5 Days
== END 2016-10-29 16:00 | disposition home health service (06) | DRG 329 ==
LOC: ED 12:09 → CC1 23:08 → 4A 10-22 16:58
PROVIDERS: ADMIT Internal Medicine; ATTEND Internal Medicine
PROC: 0DBH8ZX Excision of Cecum, Via Natural or Artificial Opening Endoscopic, Diagnostic (ICD-10-PCS; principal; 2016-10-23)
PROC: 0DBM8ZZ Excision of Descending Colon, Via Natural or Artificial Opening Endoscopic (ICD-10-PCS; 2016-10-23)
PROC: 30233N1 Transfusion of Nonautologous Red Blood Cells into Peripheral Vein, Percutaneous Approach (ICD-10-PCS; 2016-10-23)
PROC: 0DTF0ZZ Resection of Right Large Intestine, Open Approach (ICD-10-PCS; 2016-10-23)
PROC: 0DBT0ZZ (ICD-10-PCS; 2016-10-23)
PROC: 0DBP0ZX Excision of Rectum, Open Approach, Diagnostic (ICD-10-PCS; 2016-10-23)
PROC: 0WJP0ZZ Inspection of Gastrointestinal Tract, Open Approach (ICD-10-PCS; 2016-10-24)
PROC: 0DBS0ZZ (ICD-10-PCS; 2016-10-24)
PROC: 3E0M305 Introduction of Other Antineoplastic into Peritoneal Cavity, Percutaneous Approach (ICD-10-PCS; 2016-10-24)
PROC: 4A033R1 Measurement of Arterial Saturation, Peripheral, Percutaneous Approach (ICD-10-PCS; 2016-10-25)
DX: C18.0 Malignant neoplasm of cecum (principal); I71.00 Dissection of unspecified site of aorta; K65.8 Other peritonitis; K63.3 Ulcer of intestine; K63.89 Other specified diseases of intestine; I10 Essential (primary) hypertension; D50.9 Iron deficiency anemia, unspecified; E66.9 Obesity, unspecified; I71.4 Abdominal aortic aneurysm, without rupture; I72.2 Aneurysm of renal artery; Z60.2 Problems related to living alone; F17.210 Nicotine dependence, cigarettes, uncomplicated; I73.9 Peripheral vascular disease, unspecified; J44.9 Chronic obstructive pulmonary disease, unspecified; Z85.820 Personal history of malignant melanoma of skin; Z85.89 Personal history of malignant neoplasm of other organs and systems; Z68.31 Body mass index [BMI] 31.0-31.9, adult; Z82.49 Family history of ischemic heart disease and other diseases of the circulatory system
CPT/HCPCS: 36415; 36600; 71010; 74176; 74177; 80048; 80053; 81001; 82378; 82607; 82728; 82747; 82803; 82962; 83550; 83615; 83690; 84443; 85007; 85025; 85045; 86301; 86850; 86900; 86901; 86920; 88305; 88309; 88331; 88342; 93005; 93010; 96361; 96365; J0360; J0690; J1100; J1170; J2250; J2270; J2405; J2704; J2710; J3010; J7030; J7040; J7120; P9016; Q9967

== ENCOUNTER 2017-02-13 09:45 | Outpatient (CLI) | payer OTHER | END 2017-02-13 09:46 | disposition home or self-care (01) | LOC: LABHHL 09:45 | PROVIDERS: ATTEND Internal Medicine Hematology & Oncology | DX: C18.2 Malignant neoplasm of ascending colon (principal); I10 Essential (primary) hypertension; J44.9 Chronic obstructive pulmonary disease, unspecified; D64.9 Anemia, unspecified; E11.9 Type 2 diabetes mellitus without complications; F17.200 Nicotine dependence, unspecified, uncomplicated; Z90.49 Acquired absence of other specified parts of digestive tract | CPT/HCPCS: 81210 ==

== ENCOUNTER 2018-05-09 10:03 | Outpatient (CLI) | payer MEDICAID ==
--- NOTE | 2018-05-09 13:57 | Magnetic Resonance Report ---
MRI OF THE BRAIN WITHOUT CONTRAST: HISTORY: Malignant neoplasm of the ascending colon PROCEDURE: Multiplanar, multisequence MR imaging of the brain without IV contrast was performed. FINDINGS: Age appropriate cortical volume loss is evident. Minimal nonspecific chronic white matter changes are also identified. A 1 cm chronic focal infarct is identified in the left bar[place]ona radiata. No large chronic infarct. No evidence for acute ischemia, hemorrhage or extra-axial fluid collection. No suggestion of a mass but IV contrast was not administered. The midline structures are central. The basal cisterns are patent. Normal ventricular size. The orbital cavities and sella turcica demonstrate no abnormality. The visualized paranasal sinuses and mastoid air cells are well aerated. IMPRESSION: Mild volume loss and chronic white matter changes. 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 No evidence for an acute process or metastatic disease to the brain.
== END 2018-05-09 10:04 | disposition home or self-care (01) ==
LOC: SPVIMAG 10:03
PROVIDERS: ATTEND Internal Medicine Hematology & Oncology
DX: C18.2 Malignant neoplasm of ascending colon (principal); I10 Essential (primary) hypertension; J44.9 Chronic obstructive pulmonary disease, unspecified; E66.9 Obesity, unspecified; Z87.891 Personal history of nicotine dependence
CPT/HCPCS: 70551